=== PATIENT | female | born 1955 | race Caucasian/White ===

== ENCOUNTER → 2016-11-10 | Outpatient (CLI) | payer OTHER ==
[2016-11-10 15:42] VITALS: BP 186/101; PULSE 71; TEMP 97; BMI 47.2
--- NOTE | 2016-11-10 16:57 | P.HPBAR ---
Bariatric H&P - History & Physicial H&P Date: 11/10/16 History & Physicial: Visit/CC: FOLLOW UP VISIT Patient initial contact: Initial weight: Initial weight in pounds: Height: 5 ft 3 in Initial BMI: Last weight: Current weight: 120.882 kg Current weight in pounds: 266.50 Current BMI: 47.2 [place] body weight (based on NIH guidelines): 52.163 kg Excess body weight loss: The patient is a 61 year-old F who presents for Bariatric Assessment. Patient presents for lab band follow. She's not been seen for approximately 8 years. She states she has pain at her port site. She's had some minimal GERD symptoms. Past Medical History History of Any Multi-Drug Resistant Organisms: None Reported Smoking Status: Never smoker Surgical - Exam Vital Signs Temp Pulse BP 97.0 F L 71 186/101 11/10/16 15:35 11/10/16 15:35 11/10/16 15:35 - General well developed, no distress - Eyes PERRL - ENT normal pinna - Neck no masses - Respiratory normal expansion - Cardiovascular Rhythm: regular - Abdomen Patient's abdomen is soft. She has exquisite tenderness throughout her epigastric area. There is also tenderness along the left side her abdomen and in the right left lower quadrant. Bariatric Assessment & Plan Plan: The patient LAP-BAND was accessed. The port is not rotated. Patient's complaints of severe pain throughout her abdomen. We will perform computed tomography scan of the abdomen and pelvis. Bariatric Checklist Checklist: Plan: Checklist: EGD: 1. Hiatal hernia: 2. H. Pylori: HgbA1c: Vitamin D: Smoking: Never smoker Primary care physician referral: DR HODGES Psychiatry clearance: Cardiology clearance: Sleep study: Diet journal: VTE risk score: VTE risk level: Rehab needs at discharge:
== END | disposition home or self-care (01) ==
LOC: BARWHC3 12:59
PROVIDERS: ATTEND Surgery
DX: Z48.815 Encounter for surgical aftercare following surgery on the digestive system (principal); Z98.84 Bariatric surgery status; K21.9 Gastro-esophageal reflux disease without esophagitis; R10.84 Generalized abdominal pain
CPT/HCPCS: 99211

== ENCOUNTER → 2016-11-19 | Outpatient (CLI) | payer OTHER ==
[2016-11-19 15:20] LABS: Blood Urea Nitrogen 16 mg/dL (7-17); Non-African American GFR(MDRD) >60 (>60 ml/min/1.73 sqM)
--- NOTE | 2016-11-19 17:12 | CT ---
EXAMINATION TYPE: CT abdomen pelvis w con DATE OF EXAM: 11/19/2016 4:50 PM COMPARISON: Prior exam 02 September 2008 HISTORY: Generalized abdominal pain. CT DLP: 1860.00 mGycm Automated exposure control for dose reduction was used. TECHNIQUE: Helical acquisition of images from the lung bases through the pelvis have been completed. CONTRAST: Performed with Oral Contrast and with IV Contrast, patient injected with 100 mL of Omnipaque 300. FINDINGS: LUNG BASES: Minimal dependent atelectatic changes, there is no pleural or pericardial effusion Patient is status post lap band. AORTA: No significant abnormality is appreciated. LIVER/GB: The liver shows low attenuation likely due to fatty infiltration. Patient is post cholecyst ectomy and the liver is enlarged. PANCREAS: No significant abnormality is seen. SPLEEN: No significant abnormality is seen. ADRENALS: No significant abnormality is seen. KIDNEYS: No significant abnormality is seen. REPRODUCTIVE ORGANS: Uterus and right adnexal structures are not seen, left ovary shows an associated cystic focus measuring 13 mm BOWEL: Diverticular changes associated with the sigmoid colon, there is no bowel obstruction evident , appendix is not seen FREE AIR: No Free Air visible ASCITES: None visible. PELVIC ADENOPATHY: None visualized. RETROPERITONEAL ADENOPATHY: No Retroperitoneal Adenopathy visible. URINARY BLADDER: No significant abnormality is seen. OSSEOUS STRUCTURES: Degenerative disc changes are present, postop change noted to the left hip. IMPRESSION: POSTOP CHANGES. DIVERTICULOSIS. FATTY INFILTRATION OF THE LIVER, HEPATOMEGALY. ADDITIONAL FINDINGS AB OVE.
== END | disposition home or self-care (01) ==
LOC: RADCTMAIN 14:38
PROVIDERS: ATTEND Surgery
DX: K57.90 Diverticulosis of intestine, part unspecified, without perforation or abscess without bleeding (principal); K76.0 Fatty (change of) liver, not elsewhere classified; R16.0 Hepatomegaly, not elsewhere classified; R10.84 Generalized abdominal pain; Z98.890 Other specified postprocedural states
CPT/HCPCS: 82565; 84520; 74177; 36415; Q9967

== ENCOUNTER → 2016-12-15 | Outpatient (CLI) | payer OTHER | END | disposition home or self-care (01) | LOC: LABPAT 09:29 | PROVIDERS: ATTEND Orthopaedic Surgery | DX: Z01.812 Encounter for preprocedural laboratory examination (principal); M16.11 Unilateral primary osteoarthritis, right hip | CPT/HCPCS: 86850; 86870; 86880; 86900; 86901; 86902; 87070 ==

== ENCOUNTER 2016-12-22 05:54 | Inpatient (IN) | payer OTHER ==
[2016-12-18 15:21] VITALS: BMI 44.7
--- NOTE | 2016-12-21 11:55 | HP ---
DATE OF ADMISSION: Mariama Hough is a 61-year-old patient seen with symptomatic right hip osteoarthritis. After having treatment options discussed, she elected to proceed with right total hip arthroplasty. Consent was obtained. Medical clearance was provided by Rao Barrett. Preoperative cardiac clearance was provided by Dr. Machuca. Past medical history is hypertension, cardiovascular disease, asthma, [id number] diabetes. PAST SURGICAL HISTORY: Left total hip arthroplasty. Daily medications: 1. Clonidine. 2. Seroquel. 3. Carbamazepine. ALLERGIES: VICODIN AND LORABID, SEPTRA, IODINE, ZETIA AND TRAMADOL. SOCIAL HISTORY: Patient denies tobacco use. Physical evaluation of the right hip range of motion is limited with severe pain. There is diffuse tenderness about the hip girdle, positive hip impingement sign, straight-leg raise negative. The right lower extremity is approximately half inch shorter than the left. Distal neurovascular exam is intact. Radiographs of the right hip reveal severe osteoarthritic changes. IMPRESSION: Right hip osteoarthritis. PLAN: Direct anterior right total hip arthroplasty.
[~2016-12-22 05:54] MED LIST: ACETAMINOPHEN TAB 500 MG TAB PO ONE; CLINDAMYCIN 900 MG in DEXTROSE 5% IN WATER 50 ML IVPB ONE; MELOXICAM 7.5 MG TAB PO ONE; TRANEXAMIC ACID 1,000 MG in SODIUM CHLORIDE 0.9% 100 ML IVPB ONE
[2016-12-22] MEDS ORDERED: ONDANSETRON 4 MG/2 ML VIAL IVP ONE (06:12)
[2016-12-22] MEDS ORDERED: DEXAMETHASONE SOD PHOSPHATE 10 MG/ML 1 ML VIAL IV ONE (06:12)
[2016-12-22] MEDS ORDERED: MIDAZOLAM 2 MG/2 ML VIAL IV PRN (06:12)
[2016-12-22] MEDS ORDERED: HYDROmorphone 1 MG/ML 1 ML SYRINGE IVP PRN ×2 (06:12→09:53)
[2016-12-22 06:58] LABS: Glucose,Whole Blood 96 mg/dL (75-99)
[2016-12-22] MEDS ORDERED: LIDOCAINE 1% 20 ML VIAL (10MG/ML) FOR IV START INTRADERMA ONE (07:27)
[2016-12-22] MEDS: LACTATED RINGERS 1,000 ML IV SCH ×2 (07:28→10:53)
[2016-12-22] MEDS ORDERED: fentaNYL (PF) 50 MCG/ML 2 ML AMP ONE (07:29)
[2016-12-22] MEDS ORDERED: ePHEDrine 50 MG/ML 1 ML AMP ONE (07:29)
[2016-12-22] MEDS ORDERED: TRANEXAMIC ACID 1,000 MG/10 ML VIAL ONE (07:29)
[2016-12-22] MEDS ORDERED: PROPOFOL 10 MG/ML 20 ML VIAL IV ONE (07:29)
[2016-12-22] MEDS ORDERED: MIDAZOLAM 2 MG/2 ML VIAL ONE (07:29)
[2016-12-22] MEDS ORDERED: SODIUM CHLORIDE 0.9% 100 ML BAG ONE (07:29)
[2016-12-22] MEDS ORDERED: CLINDAMYCIN 1,800 MG in SODIUM CHLORIDE 0.9% IRRIGATIO 3,000 ML IRRIGATION ONE (08:13)
[2016-12-22] MEDS ORDERED: ROPIVACAINE 246.25 MG, EPINEPHrine 0.5 MG, KETOROLAC 30 MG, cloNIDine HCL/PF 80 MCG, WA... MISCELLANE ONE ×5 (08:47)
[2016-12-22] MEDS ORDERED: LACTATED RINGERS 1,000 ML IV ONE ×2 (08:50→10:33)
[2016-12-22] MEDS ORDERED: NALOXONE 0.4 MG/ML 1 ML VIAL IV PRN (09:53)
[2016-12-22] MEDS ORDERED: ONDANSETRON 4 MG/2 ML VIAL IVP PRN (09:53)
--- NOTE | 2016-12-22 09:53 | P.OP ---
Date of Procedure: 12/22/16 Preoperative Diagnosis: Right hip osteoarthritis Postoperative Diagnosis: Right hip osteoarthritis Procedure(s) Performed: Direct anterior right total hip arthroplasty Implants: 1. Depuy Corail cementless femoral stem K a size 11 standard collar 2. Depuy pinnacle acetabular shell 52 mm 3. Depuy pinnacle polyethylene acetabular liner neutral 36 mm ID52 mm OD 4. Depuy metal femoral head 36 mm -2 Anesthesia: local, spinal Surgeon: Carson Martinez Manager Heavy Duty #1: Floyd Hess Estimated Blood Loss (ml): 250 Pathology: other (Femoral head) Condition: stable Disposition: PACU Indications for Procedure: 61-year-old patient seen with symptomatic right hip osteoarthritis. After having treatment options discussed, she elected to proceed with right total hip arthroplasty. Operative Findings: See description of procedure Description of Procedure: The patient was taken to the operative suite. Patient underwent a spinal anesthetic by the department of anesthesia. Patient was then transferred to the Roy table. Patient was given preoperative IV antibiotics and TXA. Both lower extremities were placed in standard leg spars. The hip was then prepped and draped in the normal sterile orthopedic fashion. A standard anterior incision was made beginning 3 cm lateral and 1 cm distal to the ASIS extending 10 cm. Dissection was then carried down through the subcutaneous soft tissues down to the fascia overlying the tensor fascia svetlana. An incision was now made through the fascia. Careful dissection was taken down exposing the tensor fascia svetlana muscle. A Cobra retractor was now placed along the medial femoral neck and a second one along the lateral femoral neck. The venous circumflex vessels were now identified, cauterized and clipped. We identified the anterior hip capsule. An incision was made through the hip capsule along the lateral border. Tag sutures were then placed along the anterior capsule and lateral capsule. We then performed a capsulotomy. Retractors were now placed around the femoral neck itself. A Cobra retractor was now placed along the anterior acetabulum. Good exposure was now noted of the femoral head/neck complex. Residual labrum was debrided out. We placed the extremity into 3 turns of fine traction. We were then able to introduce a skid in between the femoral head and acetabulum. A placed a awl into the femoral head. We took 2 turns of traction off the extremity. Rotation was now released. The femoral head was then dislocated without difficulty. Additional releasing was performed of the capsule. The head was then reduced. All traction was released. A femoral neck cut was now made with a sagittal saw. It was completed with an osteotome at the lateral neck area. The femoral head was now removed without difficulty. The extremity was now rotated to 60 of external rotation. It was locked in position. Residual labrum was now debrided out. Serial reaming was performed of the acetabulum. Once we reached the appropriate size and a trial was position and fit nicely. The appropriate size was now chosen opened and made available. The wound was irrigated with pulse lavage mechanical irrigation. It was introduced into the acetabulum without difficulty. The C-arm/fluoroscopy was now brought into the operative field. We made sure we had a true AP pelvic view. We now under direct C-arm/ fluoroscopy introduced into the acetabular component with appropriate version and inclination. It was well seated and stable. The C-arm was pulled back. An appropriate liner was introduced and clicked into position. It was felt to be stable. At this point retractors were removed. The extremity was now placed into 125 external rotation with no traction. The leg was now dropped to the ground and adducted. Appropriate retractors were now positioned along the proximal femur. We also placed our femoral look into position. Additional capsular releasing was performed to gain access to the proximal femur. We now used a box osteotome. A canal finder was now utilized. Serial broaching was now performed until we reached the appropriate size with good overall rotational stability. Appropriate calcar planing was performed. A trial head/ neck was placed into position. The hip was now reduced. The C-arm/fluoroscopy was brought back into the operative field. A spot film was obtained of the nonoperative hip. A spot film was obtained of the trial components. Overlays were performed, we noted good overall alignment and positioning for determining leg length. The C-arm/fluoroscopy was pulled back. Retractors were repositioned and the hip was dislocated. The leg was again taken down to the ground and adducted. Appropriate retractors were repositioned as well as the femoral hook. All trial components were removed. The wound was irrigated with pulse lavage mechanical irrigation. The femoral implant was opened along with the femoral head. Deep soft tissues were infiltrated local analgesic. The femoral implant was introduced with good purchase and fixation noted. The femoral head was introduced with good positioning and fixation noted. Retractors were now removed. The hip was now reduced. There appeared be good positioning of the hip. As was confirmed on C-arm fluoroscopy. A second gram of TXA was given. Bipolar cautery had been utilized intermittently through the procedure for hemostasis. The wound was irrigated copiously with pulse lavage mechanical irrigation. The fascia was repaired with Vicryl suture. The subcutaneous soft tissues were infiltrated local analgesic. The subcutaneous soft tissues were repaired in layers with Vicryl suture. The skin was approximated with pernio/Dermabond. Sterile dressings were applied. Patient was then awakened, transferred to a bed and taken to recovery in stable condition. Phan GREENBERG assisted with the procedure.
[2016-12-22] MEDS ORDERED: ACET/COD 240MG/24MG LIQ 10 ML SYRG PO PRN (10:15)
[2016-12-22 10:29] LABS: Glucose,Whole Blood 129 mg/dL (75-99)
[2016-12-22] MEDS ORDERED: HYDROmorphone 1 MG/ML 1 ML SYRINGE IVP ONE (10:50)
--- NOTE | 2016-12-22 11:57 | FL ---
Fluoroscopy HISTORY: Pain 19 seconds fluoroscopy time supplied to the referring clinician. 1 intraoperative C-arm images docum ent the procedure. See dictated report from orthopedic surgery.
--- NOTE | 2016-12-22 11:59 | XR ---
Limited right hip HISTORY: Post hip arthroplasty Limited right hip, single view from intraoperative exam submitted to document procedure
[2016-12-22] MEDS ORDERED: ACETAMINOPHEN ORAL SUSP 160 MG/5 ML CUP PO PRN (12:19)
[2016-12-22] MEDS: HYDROmorphone 1 MG/ML 1 ML SYRINGE IVP PRN ×3 (12:24→19:55)
[2016-12-22] MEDS: SODIUM CHLORIDE 0.9% 1,000 ML IV SCH ×2 (12:25→23:25)
--- NOTE | 2016-12-22 14:34 | P.CONS ---
History of Present Illness - Reason for Consult Consult date: 12/22/16 Medical management Requesting physician: Carson Martinez - Chief Complaint Status post right total hip arthroplasty - History of Present Illness This is a 61-year-old female who is been suffering with arthritis and pain in the right hip. She underwent a right total hip arthroplasty today with Dr. Martinez. She tolerated surgery well. Estimated blood loss 250 mL. She also has a known history of hypertension, asthma, subdural hematomas requiring surgical drainage in April 2016. Also history of CVA, diabetes, peripheral vascular disease and rheumatic fever. Patient currently not on any diabetic medications after she has had some weight loss. Blood sugars have improved. She was seen by her edge brusher, PCP and vascular surgeon before proceeding with today's procedure. Last seizure episode was in April 2016 after the subdural hematoma. Patient is lying in bed. She is complaining of several left hip pain. Patient's blood pressures have been elevated likely related to her pain. Pain medication has been addressed. Patient does not do well with taking pills. Her medications are liquid form. Liquid Tylenol has also been ordered. Blood pressure has shown improvement at 159/76. Continue to monitor blood pressures. She denies any chest pain, shortness of breath, nausea or vomiting. Was having regular bowel movements and no difficulty urinating at home prior to surgery. Review of Systems Please refer to HPI otherwise unremarkable Past Medical History Past Medical History: Asthma, Coronary Artery Disease (CAD), CVA/TIA, Diabetes Mellitus, Deep Vein Thrombosis (DVT), GERD/Reflux, Hyperlipidemia, Hypertension , Memory Impairment, Osteoarthritis (OA), Seizure Disorder Additional Past Medical History / Comment(s): fell & hit her head 05/10 resulting in hematoma & subsequent stroke x2 with seizure, was hospitalized at [facility] & in rehab after at [facility] after, using cane currently & also still has trouble w/pills & food getting stuck @times, takes no meds for diabetes, rheumatic fever, heart murmur, deaf r ear, pvd, corotid stenosis, dvt r leg, fibro, egd, colonoscopy, r leg angioplasty balloon, r carotid endart, short term memory impairment History of Any Multi-Drug Resistant Organisms: None Reported Past Surgical History: Appendectomy, Bariatric Surgery, Cholecystectomy, Heart Catheterization, Hysterectomy, Orthopedic Surgery, Tonsillectomy, Tubal Ligation Additional Past Surgical History / Comment(s): left hip replacement, cervical fusion, lap band surgery, bilateral capal tunnel, panniculectomy, r iliac stent , tubes in brain after fall and hematoma 05/10 Past Anesthesia/Blood Transfusion Reactions: No Reported Reaction Past Psychological History: Anxiety, Depression Smoking Status: Never smoker Past Alcohol Use History: None Reported Past Drug Use History: None Reported - Past Family History Sister(s) Family Medical History: Cancer, Coronary Artery Disease (CAD), Hyperlipidemia, Hypertension Additional Family Medical History / Comment(s): aneurysm, heart stents; 4 living sisters Brother(s) Family Medical History: Hypertension, Myocardial Infarction (PR) Additional Family Medical History / Comment(s): stents in legs, heart disease, carotid disease, triple bypass; 2 brother : heart disease; 1 brother living Mother Family Medical History: Coronary Artery Disease (CAD), Diabetes Mellitus Additional Family Medical History / Comment(s): Father Family Medical History: Coronary Artery Disease (CAD) Additional Family Medical History / Comment(s): Medications and Allergies Home Medications Medication Instructions Recorded Confirmed Type QUEtiapine [SEROquel] 25 mg PO HS 11/11/16 12/22/16 History carBAMazepine [carBAMazepine Susp] 100 mg PO BID 12/18/16 12/22/16 History cloNIDine 0.2 MG/24HR PATCH 1 patch TOPICAL DAILY 12/22/16 12/22/16 History [Catapres-TTS] levETIRAcetam 750 mg PO BID 12/22/16 12/22/16 History Allergies Allergy/AdvReac Type Severity Reaction Status Date / Time cefdinir [From Omnicef] Allergy Rash/Hives Verified 12/18/16 15:05 ezetimibe [From Zetia] Allergy Rash/Hives Verified 12/18/16 15:05 hydrocodone Allergy Rash/Hives Verified 12/18/16 15:05 Iodinated Contrast Media - Allergy Rash/Hives, Verified 12/18/16 15:05 Oral and itching,swe lling loracarbef [From Lorabid] Allergy Rash/Hives Verified 12/18/16 15:05 morphine Allergy Rash/Hives Verified 12/18/16 15:05 Penicillins Allergy Rash/Hives Verified 12/18/16 15:05 sulfamethoxazole Allergy Rash/Hives Verified 12/18/16 15:05 [From Septra] topiramate Allergy Unknown Verified 12/18/16 15:05 tramadol Allergy Unknown Verified 12/18/16 15:05 trimethoprim [From Septra] Allergy Rash/Hives Verified 12/18/16 15:05 atorvastatin [From Lipitor] AdvReac joint pain Verified 12/18/16 15:05 ibuprofen AdvReac Itching Verified 12/18/16 15:05 ipratropium AdvReac dry throat Verified 12/18/16 15:06 lovastatin AdvReac joint pain Verified 12/18/16 15:05 tiotropium AdvReac dry throat Verified 12/18/16 15:05 [From Spiriva with HandiHaler] Physical Exam Vitals: Vital Signs Temp Pulse Pulse Pulse Resp BP BP 12/22/16 13:15 75 161/79 12/22/16 13:00 76 159/76 12/22/16 12:45 77 172/84 12/22/16 12:30 73 168/75 12/22/16 12:15 76 180/87 12/22/16 12:00 74 184/101 12/22/16 11:45 75 178/86 12/22/16 11:30 74 194/94 12/22/16 11:15 96.9 F L 74 16 191/81 12/22/16 11:05 73 16 147/66 12/22/16 11:00 66 18 158/67 12/22/16 10:44 76 18 182/74 12/22/16 10:29 70 18 173/74 12/22/16 10:11 96.8 F L 69 18 187/78 12/22/16 07:11 98.1 F 71 16 141/81 Pulse Ox 12/22/16 13:15 12/22/16 13:00 12/22/16 12:45 12/22/16 12:30 12/22/16 12:15 12/22/16 12:00 12/22/16 11:45 12/22/16 11:30 12/22/16 11:15 97 12/22/16 11:05 99 12/22/16 11:00 98 12/22/16 10:44 99 12/22/16 10:29 95 02/27/17 10:11 96 12/22/16 07:11 98 Intake and Output 12/21/16 12/22/16 12/22/16 22:59 06:59 14:59 Intake Total 5568 Output Total 650 Balance 4918 Intake: IV 4968 Oral 600 Output: Urine 400 Estimated Blood Loss 250 Other: Voiding Method Indwelling Catheter Weight 122.016 kg Patient Weight 12/23/16 06:59 Weight 122.016 kg Head normocephalic Neck supple Lungs clear to auscultation bilaterally no wheezing or crackles Heart regular rate and rhythm S1-S2, no rub or gallop Abdomen is soft nontender nondistended positive bowel sounds no hepatosplenomegaly Extremities no edema. Right leg dressing clean dry and intact Neuro alert and orientated to 3 Results Labs: Abnormal Lab Results - Last 24 Hours (Table) 12/22/16 Range/Units 10:28 POC Glucose (mg/dL) 129 H (75-99) mg/dL Assessment and Plan Plan: 1. Right hip osteoarthritis status post right total hip arthroplasty. Estimated blood loss 250 mL. Continue with the IV Dilaudid as needed. We'll add liquid Tylenol. Patient has difficulty taking pills. DVT prophylaxis with Lovenox per orthopedic protocol 2. Essential hypertension. Blood pressures elevated likely related to pain. Continue with the clonidine patch 0.2 mg daily. Patch was just increased 2 weeks ago by his PCP. Continue to monitor we'll make further adjustments as needed. Repeat blood pressure has shown some improvement. 3. History of subdural hematoma after a fall requiring surgical drainage back in April 2016. 4. History of Seizure after subdural hematoma. No further seizure activities. Continue with her current seizure medication 5. History of peripheral vascular disease 6. History of 2 previous CVAs 7. History of diabetes mellitus not requiring medications at home. We'll monitor blood sugars while in hospital. And cover with sliding scale Check routine labs CBC and CMP Thank you for this consultation. We will continue to follow along with you. Time with Patient: Greater than 30 (Greater than 50% of the total time spent in counseling and coordination of care.I performed an examination of the patient and discussed their management with the physician [employer] Sales Agent. I have reviewed the Physician [employer] Members[employer] Sales Agent's notes and agree with the documented findings and plan of care)
[2016-12-22 16:07] LABS: Basophils % (A) 0 %; CH 30.5; CHCM 32.2; Eosinophils % (A) 0 %; HCT 36.9 % (34.0-46.0); HDW 2.36; HGB 11.8 gm/dL (11.4-16.0); Luc # (Auto) 0.05; Luc % (Auto) 1; Lymphocytes # (A) 0.7 k/uL (1.0-4.8); Lymphocytes % (A) 6 %; MCH 30.3 pg (25.0-35.0); MCHC 31.9 g/dL (31.0-37.0); MCV 95.2 fL (80.0-100.0); Mean Platelet Volume 8.2; Monocytes # (A) 0.4 k/uL (0-1.0); Monocytes % (A) 3 %; Neutrophils # (A) 10.4 k/uL (1.3-7.7); Neutrophils % (A) 90 %; RBC 3.88 m/uL (3.80-5.40); RDW 13.5 % (11.5-15.5); WBC 11.6 k/uL (3.8-10.6); WBC (Perox) 12.58
[2016-12-22] MEDS: CLINDAMYCIN 900 MG in DEXTROSE 5% IN WATER 50 ML IVPB SCH ×4 (16:22→23:24)
[2016-12-22 16:23] LABS: Glucose,Whole Blood 211 mg/dL (75-99)
[2016-12-22 16:23] LABS: ALT 24 U/L (9-52); AST 26 U/L (14-36); Alkaline Phosphatase 66 U/L (38-126); Anion Gap 11 mmol/L; Blood Urea Nitrogen 16 mg/dL (7-17); Calcium 9.1 mg/dL (8.4-10.2); Carbon Dioxide 26 mmol/L (22-30); Chloride 103 mmol/L (98-107); Glucose 212 mg/dL (74-99); Non-African American GFR(MDRD) >60 (>60 ml/min/1.73 sqM); Potassium 5.1 mmol/L (3.5-5.1); Sodium 140 mmol/L (137-145); Total Bilirubin 0.4 mg/dL (0.2-1.3)
[2016-12-22] MEDS: INSULIN LISPRO (humaLOG) 300 UNIT/3 ML VIAL SQ SCH ×2 (17:54→21:17)
[2016-12-22] MEDS: QUEtiapine 25 MG TAB PO SCH (18:38)
[2016-12-22 20:26] LABS: Hemoglobin A1C 5.7 % (4.2-6.1)
[2016-12-22 21:00] LABS: Glucose,Whole Blood 95 mg/dL (75-99)
[2016-12-22] MEDS ORDERED: CARBAMAZEPINE 100 MG/5 ML PO SCH (21:00)
[2016-12-22] MEDS: levETIRAcetam ORAL SOLN 500 MG/5 ML CUP PO SCH (21:23)
[2016-12-22] MEDS: CARBAMAZEPINE 100 MG/5 ML PO SCH (21:24)
[2016-12-23] MEDS: HYDROmorphone 1 MG/ML 1 ML SYRINGE IVP PRN ×3 (02:25→10:05)
[2016-12-23] MEDS: LACTATED RINGERS 1,000 ML IV SCH ×2 (05:39)
[2016-12-23 06:51] LABS: Basophils % (A) 0 %; CH 30.1; CHCM 31.9; Eosinophils # (A) 0.1 k/uL (0-0.7); Eosinophils % (A) 1 %; HDW 2.29; HGB 10.3 gm/dL (11.4-16.0); Luc % (Auto) 2; Lymphocytes # (A) 2.1 k/uL (1.0-4.8); Lymphocytes % (A) 32 %; MCH 30.4 pg (25.0-35.0); MCV 94.8 fL (80.0-100.0); Mean Platelet Volume 7.7; Monocytes # (A) 0.5 k/uL (0-1.0); Monocytes % (A) 7 %; Neutrophils # (A) 3.7 k/uL (1.3-7.7); Neutrophils % (A) 58 %; RBC 3.38 m/uL (3.80-5.40); RDW 13.3 % (11.5-15.5); WBC 6.4 k/uL (3.8-10.6); WBC (Perox) 6.63
[2016-12-23 07:07] LABS: ALT 21 U/L (9-52); AST 23 U/L (14-36); Alkaline Phosphatase 56 U/L (38-126); Anion Gap 8 mmol/L; Blood Urea Nitrogen 15 mg/dL (7-17); Calcium 8.6 mg/dL (8.4-10.2); Carbon Dioxide 27 mmol/L (22-30); Chloride 103 mmol/L (98-107); Glucose 91 mg/dL (74-99); Non-African American GFR(MDRD) >60 (>60 ml/min/1.73 sqM); Potassium 4.5 mmol/L (3.5-5.1); Sodium 138 mmol/L (137-145); Total Bilirubin 0.4 mg/dL (0.2-1.3); Total Protein 5.2 g/dL (6.3-8.2)
[2016-12-23 07:12] LABS: Glucose,Whole Blood 96 mg/dL (75-99)
[2016-12-23] MEDS: INSULIN LISPRO (humaLOG) 300 UNIT/3 ML VIAL SQ SCH ×4 (07:21→20:43)
[2016-12-23] MEDS: CARBAMAZEPINE 100 MG/5 ML PO SCH ×2 (08:14→20:49)
[2016-12-23] MEDS: levETIRAcetam ORAL SOLN 500 MG/5 ML CUP PO SCH ×2 (08:14→20:48)
[2016-12-23] MEDS: ENOXAPARIN 40 MG/0.4 ML SYRINGE SQ SCH (08:16)
[2016-12-23] MEDS ORDERED: cloNIDine 0.2 MG/24HR PATCH 1 PATCH PATCH TRANSDERM SCH (09:00)
[2016-12-23 11:04] LABS: Glucose,Whole Blood 97 mg/dL (75-99)
[2016-12-23] MEDS: ACETAMINOPHEN ORAL SUSP (PEDS) 3,840 MG/120 ML BOTTLE PO PRN ×2 (13:50→18:21)
--- NOTE | 2016-12-23 16:20 | P.PN ---
Subjective Principal diagnosis: Status post right total hip arthroplasty Patient seen today resting in hospital bed, she has slight increased pain in right hip. She has ambulated well, urinary catheter has been removed. She denies chest pain, shortness of breath, fever or chills. Objective - Vital Signs Vital signs: Vital Signs Temp 98.7 F 12/23/16 14:10 Pulse 69 12/23/16 14:10 Resp 17 12/23/16 14:10 BP 166/83 12/23/16 14:10 Pulse Ox 100 12/23/16 14:10 Intake & Output 12/22/16 12/23/16 12/23/16 18:59 06:59 18:59 Intake Total 6128 780 Output Total 650 300 Balance 5478 480 Weight 122.016 kg 122.016 kg Intake: IV 5168 160 Sodium Chloride 0.9% 1, 200 160 000 ml @ 80 mls/hr IV . [id number] ALCIDES Rx#:[id number] Oral 960 620 Output: Urine 400 300 Uretheral ([place]) 300 Estimated Blood Loss 250 Other: Voiding Method Indwelling Catheter Indwelling Catheter - Exam Right lower extremity: Incision is clean, dry and intact. There is minimal ecchymosis on the medial and lateral aspects of the incision. Calf soft, no tenderness with palpation. Plantar flexion, dorsiflexion, EHL, FHL are intact. Sensory exam to light touch throughout lower extremitie intact. Cap refills less than 3 seconds. - Labs CBC & Chem 7: 12/23/16 06:14 12/23/16 06:14 Labs: Abnormal Lab Results - Last 24 Hours (Table) 12/22/16 12/22/16 12/23/16 Range/Units 15:50 16:22 06:14 RBC 3.38 L (3.80-5.40) m/uL Hgb 10.3 L (11.4-16.0) gm/dL Hct 32.0 L (34.0-46.0) % Glucose 212 H (74-99) mg/dL POC Glucose (mg/dL) 211 H (75-99) mg/dL Total Protein 6.0 L (6.3-8.2) g/dL Albumin (3.5-5.0) g/dL 12/23/16 Range/Units 06:14 RBC (3.80-5.40) m/uL Hgb (11.4-16.0) gm/dL Hct (34.0-46.0) % Glucose (74-99) mg/dL POC Glucose (mg/dL) (75-99) mg/dL Total Protein 5.2 L (6.3-8.2) g/dL Albumin 2.8 L (3.5-5.0) g/dL Assessment and Plan Plan: Assessment: 1. Postop day #1 status post right total hip arthroplasty Plan: 1. Pain control continue with liquid formula 2. Dressing changes daily/ice the right hip region 3. Encourage incentive spirometer 4. Continue therapy 5. GI and DVT prophylaxis, continue Lovenox 6. Medical recommendations 7. Discharge planning: Patient will likely be discharged home tomorrow Time with Patient: Less than 30
--- NOTE | 2016-12-23 16:21 | P.DS ---
Providers Date of admission: 12/22/16 05:54 Expected date of discharge: 12/24/16 Attending physician: Carson Martinez Consults: 12/22/16 09:53 Consult Physician Routine Consulting Provider: Maxine Sanchez Consult Reason/Comments: Medical management Do you want consulting provider notified?: Yes Primary care physician: Rao Blanton Hospital Course: Date of admission: 12/22/2016 Date of discharge: 12/24/2016 Admission diagnosis: Status post right total hip arthroplasty Discharge diagnosis: Same Attending physician: Dr. Martinez Surgical procedures: Right total hip arthroplasty Brief history: Patient is a 61-year-old female with a history of progressive primary right hip osteoarthritis. At this point patient has failed conservative treatment measures and has opted to proceed with a elective right total hip arthroplasty. Hospital course: Details of patient's surgery can be found in operative report. Patient tolerated the procedure well and was subsequently transported to orthopedic floor. Patient's orthopeidc and medical care was provided daily. Patient had daily laboratory tests performed for evaluation of overall blood counts. Patient had daily physical therapy to include strengthening range of motion as well as education with walker ambulation. Patient was treated with Lovenox for their postoperative DVT prophylaxis during their inpatient stay. Patient was noted to have a relatively uneventful postoperative course. Patient reported satisfactory pain control with oral pain medications by postoperative day 0. Patient showed satisfactory progress with physical therapy. Patient moved steadily through the program and had no difficulty meeting the goals by postoperative day 2. Given patient's otherwise satisfactory course and having met physical therapy goals, plan is to discharge patient home on postoperative day 2. Discharge condition/disposition: Patient will be discharged home in stable condition. Discharge medications: Instructions are given on resumption of patient's normal daily medications per primary care recommendation, in addition patient will be prescribed Lovenox 40 mg, Tylenol liquid 650mg. Discharge instructions: 1. Wound care and infection precautions, keep incision dry and covered while showering, no lotions, creams, moisturizers. No soaking, tubs, pools, hottubs. Do not scrub over the incision. 2. Weight-bear as tolerated with walker / cane until follow-up. 3. Ice and elevate when necessary. Do not exceed 20 minutes per hour with ice pack. 4. Utilize compression sleeve until seen at first follow up appointment. 5. Visiting nursing care. 6. Home physical therapy. 7. Pain meds and anticoagulants per prescription. 8. Pain medication has potential to cause constipation. Increase oral fluid and fiber intake. Contact primary care provider if you have not had a bowel movement within 48 hours after discharge 9. No anti-inflammatory medication until discussed at first post operative visit, this including Motrin, Aleve, Mobic, Diclofenac. 10. Follow up in office at 2 weeks postop with Phan Hess PA-C 11. Follow up with your primary care doctor 7-10 days after discharge. 12. Contact [facility] with any questions, . Procedures: Right total hip arthroplasty Patient Condition at Discharge: Good Plan - Discharge Summary New Discharge Prescriptions: Acetaminophen Oral Susp (Peds) [Tylenol Oral Susp For Peds (Grape)] 650 mg PO Q6H #1 bottle Enoxaparin [Lovenox] 40 mg SQ DAILY #30 syringe Discharge Medication List QUEtiapine [SEROquel] 25 mg PO HS 11/11/16 [History] carBAMazepine [carBAMazepine Susp] 100 mg PO BID 12/18/16 [History] cloNIDine 0.2 MG/24HR PATCH [Catapres-TTS] 1 patch TOPICAL DAILY 12/22/16 [ History] levETIRAcetam 750 mg PO BID 12/22/16 [History] Acetaminophen Oral Susp (Peds) [Tylenol Oral Susp For Peds (Grape)] 650 mg PO Q6H #1 bottle 12/24/16 [Rx] Enoxaparin [Lovenox] 40 mg SQ DAILY #30 syringe 12/24/16 [Rx] Follow up Appointment(s)/Referral(s): [facility], [NON-STAFF] - 1 Week Floyd Hess PAC [PHYSICIAN TRANSIT MANAGER] - 01/09/17 2:00 pm Patient Instructions/Handouts: Total Hip Replacement (DC) Activity/Diet/Wound Care/Special Instructions: Orthopedic Discharge Instructions: 1. Wound care and infection precautions, keep incision dry and covered while showering, no lotions, creams, moisturizers. No soaking, pools, hot tubs. Do not scrub over incision. 2. Weight-bear as tolerated with walker / cane until follow-up. 3. Ice and elevate when necessary. Do not exceed 20 minutes per hour with ice pack. 4. Utilize compression sleeve until seen at first follow up appointment. 5. Visiting nursing care. 6. Home physical therapy. 7. Pain meds and anticoagulants per prescription. 8. Pain medication has potential to cause constipation. Increase oral fluid and fiber intake. Contact primary care provider if you have not had a bowel movement within 48 hours after discharge. 9. No anti-inflammatory medication until discussed at first post operative visit, this including Motrin, Aleve, Mobic, Diclofenac, Aspirin. 10. Follow up in office at 2 weeks postop with Phan Hess PA-C 11. Follow up with your primary care doctor 7-10 days after discharge. 12. Contact [facility] with any questions, . Discharge Disposition: HOME WITH HOME HEALTH SERVICES
--- NOTE | 2016-12-23 16:29 | P.PN ---
Subjective Principal diagnosis: Right hip osteoarthritis This is a 61-year-old female who is been suffering with arthritis and pain in the right hip. She also has a known history of hypertension, asthma, subdural hematomas requiring surgical drainage in April 2016. Also history of CVA, diabetes, peripheral vascular disease and rheumatic fever. Patient currently not on any diabetic medications after she has had some weight loss. Blood sugars have improved. She was seen by her lab pack chemist, PCP and vascular surgeon before proceeding with today's procedure. Last seizure episode was in April 2016 after the subdural hematoma. Objective - Vital Signs Vital signs: Vital Signs Temp 98.7 F 12/23/16 14:10 Pulse 69 12/23/16 14:10 Resp 17 12/23/16 14:10 BP 166/83 12/23/16 14:10 Pulse Ox 100 12/23/16 14:10 Intake & Output 12/22/16 12/23/16 12/23/16 18:59 06:59 18:59 Intake Total 6128 780 Output Total 650 300 Balance 5478 480 Weight 122.016 kg 122.016 kg Intake: IV 5168 160 Sodium Chloride 0.9% 1, 200 160 000 ml @ 80 mls/hr IV . [id number] ALCIDES Rx#:[id number] Oral 960 620 Output: Urine 400 300 Uretheral ([place]) 300 Estimated Blood Loss 250 Other: Voiding Method Indwelling Catheter Indwelling Catheter - Exam Patient is alert and oriented 3 she is complaining of right hip pain she is complaining of feeling cold otherwise no complaints HEENT head normocephalic and atraumatic Neck is supple no JVD no goiter no lymphadenopathy Chest exam reveals a few scattered rhonchi no wheezing Cardiac exam reveals regular heart sounds no murmurs Abdomen is soft nontender no organomegaly Extremity exam reveals no edema - Labs CBC & Chem 7: 12/23/16 06:14 12/23/16 06:14 Labs: Abnormal Lab Results - Last 24 Hours (Table) 12/22/16 12/22/16 12/23/16 Range/Units 15:50 16:22 06:14 RBC 3.38 L (3.80-5.40) m/uL Hgb 10.3 L (11.4-16.0) gm/dL Hct 32.0 L (34.0-46.0) % Glucose 212 H (74-99) mg/dL POC Glucose (mg/dL) 211 H (75-99) mg/dL Total Protein 6.0 L (6.3-8.2) g/dL Albumin (3.5-5.0) g/dL 12/23/16 Range/Units 06:14 RBC (3.80-5.40) m/uL Hgb (11.4-16.0) gm/dL Hct (34.0-46.0) % Glucose (74-99) mg/dL POC Glucose (mg/dL) (75-99) mg/dL Total Protein 5.2 L (6.3-8.2) g/dL Albumin 2.8 L (3.5-5.0) g/dL Assessment and Plan Plan: 1. Right hip osteoarthritis status post right total hip arthroplasty. Estimated blood loss 250 mL. Continue with the IV Dilaudid as needed. We'll add liquid Tylenol. Patient has difficulty taking pills. DVT prophylaxis with Lovenox per orthopedic protocol 2. Essential hypertension. Blood pressures elevated likely related to pain. Continue with the clonidine patch 0.2 mg daily. Patch was just increased 2 weeks ago by his PCP. Continue to monitor we'll make further adjustments as needed. Repeat blood pressure has shown some improvement. 3. History of subdural hematoma after a fall requiring surgical drainage back in April 2016. 4. History of Seizure after subdural hematoma. No further seizure activities. Continue with her current seizure medication 5. History of peripheral vascular disease 6. History of 2 previous CVAs 7. History of diabetes mellitus not requiring medications at home. We'll monitor blood sugars while in hospital. And cover with sliding scale
[2016-12-23 16:37] LABS: Glucose,Whole Blood 116 mg/dL (75-99)
[2016-12-23 20:26] LABS: Glucose,Whole Blood 113 mg/dL (75-99)
[2016-12-23] MEDS: QUEtiapine 25 MG TAB PO SCH (20:49)
[2016-12-24] MEDS: LACTATED RINGERS 1,000 ML IV SCH (05:42)
[2016-12-24 07:21] LABS: Glucose,Whole Blood 122 mg/dL (75-99)
[2016-12-24] MEDS: ACETAMINOPHEN ORAL SUSP (PEDS) 3,840 MG/120 ML BOTTLE PO PRN ×2 (07:36→13:54)
[2016-12-24] MEDS: CARBAMAZEPINE 100 MG/5 ML PO SCH (07:39)
[2016-12-24] MEDS: levETIRAcetam ORAL SOLN 500 MG/5 ML CUP PO SCH (07:40)
[2016-12-24 07:41] VITALS: BP 157/70; PULSE 82; RESP 16; TEMP 97.9
[2016-12-24] MEDS: ENOXAPARIN 40 MG/0.4 ML SYRINGE SQ SCH (07:42)
[2016-12-24] MEDS: INSULIN LISPRO (humaLOG) 300 UNIT/3 ML VIAL SQ SCH ×2 (08:46→13:43)
--- NOTE | 2016-12-24 11:05 | P.PN ---
Subjective Principal diagnosis: Status post right total hip arthroplasty Patient seen today resting in hospital bed. She is doing much better today. She has ambulated well. She denies chest pain, shortness of breath, fever or chills. Objective - Vital Signs Vital signs: Vital Signs Temp 97.9 F 12/24/16 07:00 Pulse 82 12/24/16 07:00 Resp 16 12/24/16 07:00 BP 157/70 12/24/16 07:00 Pulse Ox 97 12/24/16 07:00 Intake & Output 12/23/16 12/24/16 12/24/16 18:59 06:59 18:59 Intake Total 900 120 Output Total 300 Balance 600 120 Weight 122.016 kg Intake: IV 160 Sodium Chloride 0.9% 1, 160 000 ml @ 80 mls/hr IV . [id number] ALCIDES Rx#:[id number] Oral 740 120 Output: Urine 300 Uretheral ([place]) 300 Other: Voiding Method Indwelling Catheter # Voids 4 - Exam Right lower extremity: Incision is clean, dry and intact. There is minimal ecchymosis on the medial and lateral aspects of the incision. Calf soft, no tenderness with palpation. Plantar flexion, dorsiflexion, EHL, FHL are intact. Sensory exam to light touch throughout lower extremitie intact. Cap refills less than 3 seconds. - Labs CBC & Chem 7: 12/23/16 06:14 12/23/16 06:14 Labs: Abnormal Lab Results - Last 24 Hours (Table) 12/23/16 12/23/16 12/24/16 Range/Units 16:29 20:23 07:14 POC Glucose (mg/dL) 116 H 113 H 122 H (75-99) mg/dL Assessment and Plan Plan: Assessment: 1. Postop day #2 status post right total hip arthroplasty Plan: 1. Pain control continue with liquid formula 2. Dressing changes daily/ice the right hip region 3. Encourage incentive spirometer 4. Continue therapy 5. GI and DVT prophylaxis, continue Lovenox 6. Medical recommendations 7. Discharge planning: Patient will be discharged home today Time with Patient: Less than 30
[2016-12-24 12:13] LABS: Glucose,Whole Blood 113 mg/dL (75-99)
[2017-01-04] MEDS ORDERED: cloNIDine 0.2 MG/24HR PATCH 1 PATCH PATCH TRANSDERM SCH (09:00)
== END 2016-12-24 14:47 | disposition home health service (06) | DRG 470 ==
LOC: 2ORMAIN 05:54 → 3SUR 10:05
PROVIDERS: ADMIT Orthopaedic Surgery; ATTEND Orthopaedic Surgery
PROC: 0SR902A Replacement of Right Hip Joint with Metal on Polyethylene Synthetic Substitute, Uncemented, Open Approach (ICD-10-PCS; principal; 2016-12-22 07:30)
DX: M16.11 Unilateral primary osteoarthritis, right hip (principal); E11.51 Type 2 diabetes mellitus with diabetic peripheral angiopathy without gangrene; I10 Essential (primary) hypertension; J45.909 Unspecified asthma, uncomplicated; G40.909 Epilepsy, unspecified, not intractable, without status epilepticus; I25.10 Atherosclerotic heart disease of native coronary artery without angina pectoris; F32.9 Major depressive disorder, single episode, unspecified; K21.9 Gastro-esophageal reflux disease without esophagitis; E78.5 Hyperlipidemia, unspecified; Z90.49 Acquired absence of other specified parts of digestive tract; Z86.718 Personal history of other venous thrombosis and embolism; Z86.73 Personal history of transient ischemic attack (TIA), and cerebral infarction without residual deficits; Z96.642 Presence of left artificial hip joint; Z79.899 Other long term (current) drug therapy
CPT/HCPCS: 73501; 80053; 83036; 85025; 86850; 86870; 86880; 86900; 86901; 86902; 87070; 88300

== ENCOUNTER 2017-02-10 10:48 | Emergency (ER) | payer OTHER ==
[2017-02-10 10:57] VITALS: BP 220/89; PULSE 65; RESP 18; TEMP 98.5
[2017-02-10] MEDS ORDERED: LABETALOL 5 MG/ML VIAL MDV IVP STA (11:05)
--- NOTE | 2017-02-10 11:53 | ED ---
General Adult HPI - General Chief complaint: Recheck/Abnormal Lab/Rx Stated complaint: high blood pressure Time Seen by Provider: 02/10/17 11:04 Source: patient, RN notes reviewed, old records reviewed Mode of arrival: ambulatory Limitations: no limitations - History of Present Illness Initial comments: This is a 60-year-old female here for evaluation of elevated blood pressure headache. Patient coming in for continued complaints of the same. Upon arrival to emergency room patient states she does not want reevaluated on this will be discharged home, patient is refuting refusing any further evaluation Severity scale (1-10): 0 - Related Data Home Medications Medication Instructions Recorded Confirmed QUEtiapine [SEROquel] 25 mg PO HS 11/11/16 02/10/17 carBAMazepine [carBAMazepine Susp] 100 mg PO BID 12/18/16 02/10/17 cloNIDine 0.2 MG/24HR PATCH 1 patch TOPICAL DAILY 12/22/16 02/10/17 [Catapres-TTS] Acetaminophen Oral Susp (Peds) 650 mg PO Q6H PRN 02/10/17 02/10/17 [Tylenol Oral Susp For Peds (Grape)] levETIRAcetam [Levetiracetam] 750 mg PO BID 02/10/17 02/10/17 Allergies Allergy/AdvReac Type Severity Reaction Status Date / Time cefdinir [From Omnicef] Allergy Rash/Hives Verified 02/10/17 08:37 ezetimibe [From Zetia] Allergy Rash/Hives Verified 02/10/17 08:37 hydrocodone Allergy Rash/Hives Verified 02/10/17 08:37 Iodinated Contrast Media - Allergy Rash/Hives, Verified 02/10/17 08:37 Oral and itching,swe lling loracarbef [From Lorabid] Allergy Rash/Hives Verified 02/10/17 08:37 morphine Allergy Rash/Hives Verified 02/10/17 08:37 Penicillins Allergy Rash/Hives Verified 02/10/17 08:37 sulfamethoxazole Allergy Rash/Hives Verified 02/10/17 08:37 [From Septra] topiramate Allergy Unknown Verified 02/10/17 08:37 tramadol Allergy Unknown Verified 02/10/17 08:37 trimethoprim [From Septra] Allergy Rash/Hives Verified 02/10/17 08:37 atorvastatin [From Lipitor] AdvReac joint pain Verified 02/10/17 08:37 ibuprofen AdvReac Itching Verified 02/10/17 08:37 ipratropium AdvReac dry throat Verified 02/10/17 08:37 lovastatin AdvReac joint pain Verified 02/10/17 08:37 tiotropium AdvReac dry throat Verified 02/10/17 08:37 [From Spiriva with HandiHaler] Review of Systems ROS Statement: Those systems with pertinent positive or pertinent negative responses have been documented in the HPI. ROS Other: All systems not noted in ROS Statement are negative. Past Medical History Past Medical History: Asthma, Coronary Artery Disease (CAD), COPD, CVA/TIA, Diabetes Mellitus, Deep Vein Thrombosis (DVT), GERD/Reflux, Hyperlipidemia, Hypertension, Memory Impairment, Osteoarthritis (OA), Seizure Disorder Additional Past Medical History / Comment(s): fell & hit her head 05/10 resulting in hematoma & subsequent stroke x2 with seizure, was hospitalized at [facility] & in rehab after at [facility] after, using cane currently & also still has trouble w/pills & food getting stuck @times, takes no meds for diabetes, rheumatic fever, heart murmur, deaf r ear, pvd, corotid stenosis, dvt r leg, fibromyalgia, egd, colonoscopy, r leg angioplasty balloon, r carotid endart, short term memory impairment History of Any Multi-Drug Resistant Organisms: None Reported Past Surgical History: Appendectomy, Bariatric Surgery, Cholecystectomy, Heart Catheterization, Hysterectomy, Orthopedic Surgery, Tonsillectomy, Tubal Ligation Additional Past Surgical History / Comment(s): left hip replacement, cervical fusion, lap band surgery, bilateral capal tunnel, panniculectomy, r iliac stent , tubes in brain after fall and hematoma 05/10 Past Anesthesia/Blood Transfusion Reactions: No Reported Reaction Past Psychological History: Anxiety, Depression Smoking Status: Former smoker Past Alcohol Use History: None Reported Past Drug Use History: None Reported - Past Family History Sister(s) Family Medical History: Cancer, Coronary Artery Disease (CAD), Hyperlipidemia, Hypertension Additional Family Medical History / Comment(s): aneurysm, heart stents; 4 living sisters Brother(s) Family Medical History: Hypertension, Myocardial Infarction ([place]) Additional Family Medical History / Comment(s): stents in legs, heart disease, carotid disease, triple bypass; 2 brother : heart disease; 1 brother living Mother Family Medical History: Coronary Artery Disease (CAD), Diabetes Mellitus Additional Family Medical History / Comment(s): Father Family Medical History: Coronary Artery Disease (CAD) Additional Family Medical History / Comment(s): General Exam Limitations: no limitations General appearance: alert, in no apparent distress Head exam: Present: atraumatic, normocephalic, normal inspection Eye exam: Present: normal appearance, PERRL, EOMI. Absent: scleral icterus, conjunctival injection, periorbital swelling ENT exam: Present: normal exam, mucous membranes moist Neck exam: Present: normal inspection. Absent: tenderness, meningismus, lymphadenopathy Respiratory exam: Present: normal lung sounds bilaterally. Absent: respiratory distress, wheezes, rales, rhonchi, stridor Cardiovascular Exam: Present: regular rate, normal rhythm, normal heart sounds. Absent: systolic murmur, diastolic murmur, rubs, gallop, clicks GI/Abdominal exam: Present: soft, normal bowel sounds. Absent: distended, tenderness, guarding, rebound, rigid Extremities exam: Present: normal inspection, full ROM, normal capillary refill. Absent: tenderness, pedal edema, joint swelling, calf tenderness Back exam: Present: normal inspection Neurological exam: Present: alert, oriented X3, CN II-XII intact Psychiatric exam: Present: normal affect, normal mood Skin exam: Present: warm, dry, intact, normal color. Absent: rash Course Vital Signs 02/10/17 10:54 Temperature 98.5 F Pulse Rate 65 Respiratory 18 Rate Blood Pressure 220/89 O2 Sat by Pulse 98 Oximetry EKG Findings - EKG Comments: EKG Findings:: EKG shows normal sinus rhythm rate of 66, IN 132, QRS 64, QTC 419 Medical Decision Making - Medical Decision Making 62 female at ER for elevated blood pressure, patient refusing evaluation at this time, in no acute distress blood pressure at this time is unable to be measured, patient will be discharged home at her own discretion Disposition Clinical Impression: Hypertension Disposition: Left Against Medical Advice Referrals: Rao Blanton MD [Primary Care Provider] - 1-2 days
== END 2017-02-10 11:31 | disposition left against medical advice (07) ==
LOC: EC 10:48
DX: I10 Essential (primary) hypertension (principal); G40.909 Epilepsy, unspecified, not intractable, without status epilepticus; F32.9 Major depressive disorder, single episode, unspecified; F41.9 Anxiety disorder, unspecified; Z87.891 Personal history of nicotine dependence; Z79.899 Other long term (current) drug therapy; Z88.0 Allergy status to penicillin; Z88.1 Allergy status to other antibiotic agents; Z88.5 Allergy status to narcotic agent; Z88.6 Allergy status to analgesic agent; Z88.8 Allergy status to other drugs, medicaments and biological substances; Z91.041 Radiographic dye allergy status; Z95.818 Presence of other cardiac implants and grafts; Z82.49 Family history of ischemic heart disease and other diseases of the circulatory system
CPT/HCPCS: 93005; 99283

== ENCOUNTER → 2017-03-03 | Outpatient (CLI) | payer OTHER ==
--- NOTE | 2017-03-03 12:18 | US ---
LOWER EXTREMITY BILATERAL VENOUS INSUFFICIENCY DATE: 03/03/2017. TECHNIQUE: Duplex Doppler ultrasound examination of the bilateral lower extremities. FINDINGS: SIDE PERFORMED: Bilateral 1) Color flow is present and patency is documented in the following vessels. No DVT or SVT is noted . ? EIV ? Common Femoral Vein ? Deep Femoral Vein ? Femoral Vein ? Popliteal Vein ? Proximal Calf Veins ? Greater Saph Vein ? Upper Small Saph Vein 2) There is venous reflux noted at the following venous levels: None No sign of reflux seen in bilateral legs IMPRESSION: 1. No evidence for DVT within the bilateral lower extremities imaged from the groin to the upper calv es. 2. No appreciable venous reflux within the bilateral lower extremities.
--- NOTE | 2017-03-04 14:18 | P.ARTDOP ---
Arterial Doppler LOWER EXTREMITY ARTERIAL DOPPLER: DATE OF SERVICE: 03/03/2017 Reason for study: Right leg pain. Doppler waveforms: Multiphasic bilaterally throughout, slightly blunted distally on the right.. Pulse volume recording: Essentially normal configuration.. Pressure gradients: Above the knee bilaterally Ankle-brachial indices: 0.87 on the right and 0.85 on the left.. Toe pressures: 122 on the right, 167 on the left Impression: Suspect mild bilateral SFA disease. Adequate circulatory status for healing bilaterally..
== END | disposition home or self-care (01) ==
LOC: RADUSWWP 08:22
PROVIDERS: ATTEND Surgery
DX: M79.604 Pain in right leg (principal); L97.112 Non-pressure chronic ulcer of right thigh with fat layer exposed
CPT/HCPCS: 93923; 93970

== ENCOUNTER 2018-06-08 07:29 | Day surgery (SDC) | payer OTHER ==
[2018-06-03 14:05] VITALS: BMI 46.4
[~2018-06-08 07:29] MED LIST changes: -ACETAMINOPHEN TAB 500 MG TAB PO ONE; -CLINDAMYCIN 900 MG in DEXTROSE 5% IN WATER 50 ML IVPB ONE; +LACTATED RINGERS 1,000 ML IV SCH; +LIDOCAINE 1% 20 ML VIAL (10MG/ML) FOR IV START INTRADERMA PRN; -MELOXICAM 7.5 MG TAB PO ONE; +MIDAZOLAM 2 MG/2 ML VIAL IV PRN; -TRANEXAMIC ACID 1,000 MG in SODIUM CHLORIDE 0.9% 100 ML IVPB ONE
[2018-06-08 08:03] LABS: Glucose,Whole Blood 122 mg/dL (75-99)
[2018-06-08 08:06] VITALS: RESP 16; TEMP 98.5
[2018-06-08] MEDS ORDERED: PROPOFOL 10 MG/ML 20 ML VIAL IV ONE (08:10)
--- NOTE | 2018-06-08 08:40 | P.PCN ---
Date of Procedure: 06/08/18 Procedure(s) Performed: Procedure: Total colonoscopy. Preoperative diagnosis: Screening for neoplasia, patient has history of polyps. Postoperative diagnosis: Mild diverticulosis with no evidence of acute diverticulitis, strictures, polyps or cancer. Preparation: HalfLytely prep. Sedation: Was provided by anesthesia. Brief clinical history: The patient is a 63-year-old female who is scheduled for this evaluation for screening for neoplasia. She has history of polyps and family history of colon cancer in her aunt. Her last colonoscopy was in April 2012. The patient has no abdominal complaints, bleeding or anemia. Procedure: With the patient on her left lateral decubitus position and after informed consent and adequate sedation, the perianal area was inspected and it did not show any fissures or fistulas. There were no masses felt on digital rectal examination. The Olympus CFQ 160L video colonoscope was then inserted in the rectum in the usual fashion and advanced to the cecum. The mucosa appeared healthy. There was occasional diverticular orifices seen scattered in the sigmoid and around the hepatic flexure with no evidence of acute diverticulitis or strictures. No significant polyps or tumors were seen. I retroflexed the endoscope in the rectum before the endoscope was withdrawn. The patient tolerated the procedure well. Plan: The patient was reassured. Discussed dietary measures. She will follow- up with you as planned and I recommended repeat exam in 5 years.
[2018-06-08 08:54] VITALS: BP 178/65; PULSE 67
== END 2018-06-08 09:08 | disposition home or self-care (01) ==
LOC: ORWHC2ENDO 07:29
DX: Z12.11 Encounter for screening for malignant neoplasm of colon (principal); K57.30 Diverticulosis of large intestine without perforation or abscess without bleeding; I10 Essential (primary) hypertension; E11.9 Type 2 diabetes mellitus without complications; K21.9 Gastro-esophageal reflux disease without esophagitis; M79.7 Fibromyalgia; Z86.010 Personal history of colon polyps; Z88.0 Allergy status to penicillin; Z86.718 Personal history of other venous thrombosis and embolism; Z80.0 Family history of malignant neoplasm of digestive organs
CPT/HCPCS: 45378; J2704

== ENCOUNTER → 2018-10-13 | Outpatient (CLI) | payer OTHER ==
--- NOTE | 2018-10-13 12:59 | FL ---
EXAMINATION TYPE: FL barium swallow w video DATE OF EXAM: 10/13/2018 MODIFIED SWALLOW / DEGLUTITION STUDY CLINICAL HISTORY: Pill dysphagia with regurgitation. Patient describes history of goiter, prior CVA, and prior cervical fusion. TECHNIQUE: Deglutition study is performed utilizing thin liquid barium, honey and nectar thick liqui d barium, barium thick applesauce, and barium coated cracker. 1 minute and 3 seconds of fluoroscopy t grover was utilized. 0 images were saved as the examination was video recorded. COMPARISON: None. FINDINGS: The oral and pharyngeal phases show satisfactory initiation and propagation with all modali ties tested. Normal mastication is seen with solid modalities tested. There is no evidence of penet ration or aspiration with any modality tested. No significant pharyngeal residue was appreciated. IMPRESSION: Unremarkable deglutition study. Please refer to speech therapist notes for further detai ls if necessary.
== END | disposition home or self-care (01) ==
LOC: RADFLMAIN 11:35
PROVIDERS: ATTEND Otolaryngology
DX: R13.10 Dysphagia, unspecified (principal)
CPT/HCPCS: 74230

== ENCOUNTER → 2021-02-07 | Outpatient (CLI) | payer MEDICARE ==
--- NOTE | 2021-02-07 13:41 | CT ---
EXAMINATION TYPE: CT CervThoracic spine wo con DATE OF EXAM: 02/07/2021 COMPARISON: NONE HISTORY: cervical and thoracic pain post fall injury. CT DLP: 3492.7 mGycm. Automated Exposure Control for Dose Reduction was Utilized. TECHNIQUE: CT scan of the cervical and thoracic spine are obtained without contrast, axial images ar e obtained, sagittal and coronal reformatted images are also reviewed. FINDINGS: Cervical spine is visualized in its entirety from C1 through upper thoracic levels, demonst rates straightened alignment without evidence of acute fracture or dislocation. Prevertebral soft ti ssue appears within normal limits. The C1-C2 articulation is within normal limits on the coronal yasmin ges. Vertebral body heights are maintained. Anterior fusion plate with ossific fusion at C5-C6 level. Moderate disc space narrowing with severe anterior spurring C6-C7 level. Mild to moderate disc space narrowing C4-C5 and C7-T1 levels. Spinal canal grossly preserved. Review of axial images shows no large disc herniation. There are uncovertebral facet degenerative sri nges left C3-C4 level causing moderate neural foraminal narrowing and at right C4-C5 level causing mi ld neural foraminal narrowing. Thyroid gland is felt within normal limits. Surgical clips in the righ t neck are present. Thoracic spine shows exaggerated kyphosis. Vertebral body heights are maintained. No acute fracture o r dislocation is seen. Mild to moderate multilevel anterior lateral spurring. Mild to moderate multil evel disc space narrowing. Some multilevel vacuum disc phenomenon in the mid to lower thoracic spine. Spinal canal is grossly preserved. Visualized lungs are clear. There is partial visualization of lap band type device epigastric region in satisfactory position. Coronary artery calcification incidenta lly noted. Mild to moderate calcified plaque in the visualized aorta. IMPRESSION: As above.
== END | disposition home or self-care (01) ==
LOC: RADCTMAIN 11:20
PROVIDERS: ATTEND Orthopaedic Surgery
DX: M48.03 Spinal stenosis, cervicothoracic region (principal); M47.812 Spondylosis without myelopathy or radiculopathy, cervical region
CPT/HCPCS: 72125; 72128

== ENCOUNTER → 2021-02-15 | Day surgery (SDC) | payer MEDICARE ==
[~2021-02-15] MED LIST changes: +LACTATED RINGERS 1,000 ML IV ONE; -LIDOCAINE 1% 20 ML VIAL (10MG/ML) FOR IV START INTRADERMA PRN; +LIDOCAINE 1% INJ 10MG/ML (20 ML MDV) ONE; -MIDAZOLAM 2 MG/2 ML VIAL IV PRN; +PROPOFOL 10 MG/ML 20 ML VIAL IV ONE
[2021-02-15 08:17] VITALS: TEMP 96.9
[2021-02-15 08:36] LABS: Glucose,Whole Blood 110 mg/dL (75-99)
--- NOTE | 2021-02-15 09:02 | P.PCN ---
Date of Procedure: 02/15/21 Procedure(s) Performed: BRIEF HISTORY: Patient is a 60-year-old pleasant white female scheduled for an elective colonoscopy as a part of evaluation of recent episode of acute colitis. She was hospitalized as [facility] in [place] and was treated with antibiotics. She was advised to have a outpatient colonoscopy. The patient states that she did have a colonoscopy while in the hospital and appears to be an incomplete procedure. No records available. Currently she has some change in bowel habits but no active bleeding. PROCEDURE PERFORMED: Colonoscopy with snare polypectomy. PREOPERATIVE DIAGNOSIS: Change in bowel habits. IV sedation per Anesthesia. PROCEDURE: After informed consent was obtained, the patient, was brought into the endoscopy unit. IV sedation was administered by Anesthesia under continuous monitoring. Digital rectal examination was normal. Initially the Olympus CF-160 flexible video colonoscope was then inserted in the rectum, gradually advanced into the cecum without any difficulty. Careful examination was performed as the scope was gradually being withdrawn. Ileocecal valve and the appendiceal orifice were visualized and appeared normal. Prep was excellent. Mucosa of the cecum, appeared normal. In the ascending colon there was a 3 mm polyp that was removed by snare polypectomy. In the hepatic flexure there was a 3 mm polyp and 4 mm polyps both of which were removed by snare polypectomy. Lantus colon there was a 5 limited polyp removed by snare polypectomy. In the sigmoid colon there was a 3 mm polyp removed by snare polypectomy. the rectum appeared normal. Retroflexion was performed in the rectum and no lesions were seen. The patient tolerated the procedure well. IMPRESSION: 3 mm ascending colon polyp status post polypectomy 3 mm, 4 mm 2 hepatic flexure polyps status post polypectomy 5 mm transverse colon polyp status post polypectomy 3 mm sigmoid colon polyp status post polypectomy RECOMMENDATIONS: Findings of this examination were discussed with the patient as well as her family. She was advised to follow with the biopsy results. If the biopsy shows an adenoma she can have a repeat colonoscopy in 3 years
[2021-02-15 09:23] VITALS: RESP 16
[2021-02-15 09:29] VITALS: BP 129/57; PULSE 63
== END ==
LOC: ORWHC2ENDO 07:39
PROVIDERS: ATTEND Internal Medicine Gastroenterology
DX: R19.4 Change in bowel habit (principal); D12.5 Benign neoplasm of sigmoid colon; D12.3 Benign neoplasm of transverse colon; I10 Essential (primary) hypertension; E78.5 Hyperlipidemia, unspecified; M19.90 Unspecified osteoarthritis, unspecified site; E66.01 Morbid (severe) obesity due to excess calories; M79.7 Fibromyalgia; Z79.899 Other long term (current) drug therapy
CPT/HCPCS: 88305; 45385; J2001; J2704

== ENCOUNTER → 2021-03-14 | Outpatient (CLI) | payer MEDICARE ==
--- NOTE | 2021-03-15 05:29 | MR ---
EXAMINATION TYPE: MR cervical spine wo/w con DATE OF EXAM: 03/14/2021 COMPARISON: None HISTORY: Pain in neck, head, and shoulders with right arm/finger pain. CONTRAST: Standard multiplanar, multisequence MRI departmental protocol utilizing 12 mL intravenous Gadavist ga dolinium contrast. The cervical vertebra have normal alignment. There is metal artifact from anterior fusion surgery at C5-6. This obscures the vertebral bodies. Cervical spinal cord has fairly normal signal pattern. Ther e is no edema. I see no evidence of spinal stenosis. Spinal canal measures 8.5 mm at C6-7 which is th e narrowest point. The brainstem appears intact. There is some uncovertebral spurring at C7-T1 on the right side but the neural foramen appears to be adequate. There is no evidence of paraspinal mass. T here is no compression fracture. The contrast images show no pathologic enhancement. IMPRESSION: Fusion surgery in the lower cervical spine. No evidence of any significant spinal stenosis. No fractu re.
== END | disposition home or self-care (01) ==
LOC: RADMRIMAIN 13:25
PROVIDERS: ATTEND Orthopaedic Surgery
DX: M54.2 Cervicalgia (principal)
CPT/HCPCS: 72156; A9585 ×2

== ENCOUNTER 2021-04-20 15:05 | Emergency (ER) | payer MEDICARE ==
[2021-04-20 15:17] VITALS: BP 212/77; PULSE 77; RESP 18; TEMP 97.9
--- NOTE | 2021-04-20 15:27 | ED ---
General Adult HPI - General Chief complaint: Chest Pain Stated complaint: Chest pain Time Seen by Provider: 04/20/21 15:23 Source: patient Mode of arrival: ambulatory Limitations: no limitations - History of Present Illness Initial comments: Dictation was produced using [employer] dictation software. please excuse any grammatical, word or spelling errors. Chief Complaint: 66-year-old female with multiple comorbidities presents emergency department for chest pain History of Present Illness: Is a 66-year-old female presents to the emergency department for chest pain. She states that sharp located to the substernal area. Patient states her pain began suddenly. She states that she does feel like she has associated numbness to her right upper extremity or right jaw. Patient denies any history of heart attacks. She states she does have family history of it. Denies any radiation to her back. No associated diaphoresis or nausea. She went to an urgent care where an EKG was performed. She was sent to the emergency room. The ROS documented in this emergency department record has been reviewed and confirmed by me. Those systems with pertinent positive or negative responses have been documented in the HPI. All other systems are other negative and/or noncontributory. PHYSICAL EXAM: General Impression: Alert and oriented x3, not in acute distress HEENT: Normocephalic atraumatic, extra-ocular movements intact, pupils equal and reactive to light bilaterally, mucous membranes moist. Cardiovascular: Heart regular rate and rhythm Chest: Able to complete full sentences, no retractions, no tachypnea Abdomen: abdomen soft, non-tender, non-distended, no organomegaly Musculoskeletal: Pulses present and equal in all extremities, no peripheral edema Motor: no focal deficits noted Neurological: CN II-XII grossly intact, no focal motor or sensory deficits noted Skin: Intact with no visualized rashes Psych: Normal affect and mood ED course: 66-year-old female presents to the emergency department for atypical chest pain typical features. She has multiple risk factors. Vital signs upon arrival are within acceptable limits. EKG interpretation: Ventricular rate 80, normal sinus rhythm, RI interval 152, QRS 70, QTC 429. No RI prolongation, no QTC prolongation, no ST or T-wave changes noted. EKG compared to 02/10/2017 showing no changes. Overall, this EKG is unremarkable Laboratory evaluation obtained. CBC, coag panel, Motrin is unremarkable. First troponin is negative. Chest x-ray is unremarkable. EKG does not show any signs of ischemia or infarction. Patient was told of her results. He is encouraged to her to be admitted for serial troponins, cardiac observation patient declined and would prefer to be discharge. Given some aspirin. At this point patient's symptoms are atypical however she does have risk factors patient understands the risks of being discharged. She lives at home and states that she can return to the emergency Department immediately if she begins expressing any recurrence of symptoms. Patient has a stress tests scheduled in the near future. She is encouraged to follow up with that and her primary care doctor. - Related Data Home Medications Medication Instructions Recorded Confirmed QUEtiapine [SEROquel] 25 mg PO HS 11/11/16 02/15/21 carBAMazepine [carBAMazepine Susp] 100 mg PO BID 12/18/16 02/15/21 Acetaminophen Oral Susp (Peds) 650 mg PO Q6H PRN 02/10/17 02/15/21 [Tylenol Oral Susp For Peds (Grape)] levETIRAcetam [Levetiracetam] 750 mg PO BID 02/10/17 02/15/21 amLODIPine BESYLATE [Norvasc] 5 mg PO BID 06/03/18 02/15/21 cloNIDine 0.3 MG/24HR PATCH 1 each TRANSDERM TU 06/03/18 02/15/21 [Catapres-Tts 0.3MG Patch] hydrALAZINE HCL [Apresoline] 100 mg PO TID 06/03/18 02/15/21 lisinopriL [Zestril] 20 mg PO BID 06/03/18 02/15/21 Ergocalciferol (Vitamin D2) 10 mcg PO DAILY 01/11/21 02/15/21 [Vitamin D2 (400 Iu)] Garlic 1 each PO DAILY 01/11/21 02/15/21 Allergies Allergy/AdvReac Type Severity Reaction Status Date / Time albuterol Allergy Unknown Verified 04/20/21 15:17 cefdinir [From Omnicef] Allergy Rash/Hives Verified 04/20/21 15:17 ezetimibe [From Zetia] Allergy Rash/Hives Verified 04/20/21 15:17 hydrocodone Allergy Rash/Hives Verified 04/20/21 15:17 Iodinated Contrast Media Allergy Rash/Hives, Verified 04/20/21 15:17 [Iodinated Contrast Media - itching,swe Oral and] lling loracarbef [From Lorabid] Allergy Rash/Hives Verified 04/20/21 15:17 morphine Allergy Rash/Hives Verified 04/20/21 15:17 Penicillins Allergy Rash/Hives Verified 04/20/21 15:17 sulfamethoxazole Allergy Rash/Hives Verified 04/20/21 15:17 [From Septra] topiramate Allergy Unknown Verified 04/20/21 15:17 tramadol Allergy seizures Verified 04/20/21 15:17 trimethoprim [From Septra] Allergy Rash/Hives Verified 04/20/21 15:17 atorvastatin [From Lipitor] AdvReac joint pain Verified 04/20/21 15:17 ibuprofen AdvReac Itching Verified 04/20/21 15:17 ipratropium AdvReac dry throat Verified 04/20/21 15:17 lovastatin AdvReac joint pain Verified 04/20/21 15:17 tiotropium AdvReac dry throat Verified 04/20/21 15:17 [From Spiriva with HandiHaler] mefix tape Allergy Rash/Hives Uncoded 04/20/21 15:17 Review of Systems ROS Statement: Those systems with pertinent positive or pertinent negative responses have been documented in the HPI. ROS Other: All systems not noted in ROS Statement are negative. Past Medical History Past Medical History: Asthma, CVA/TIA, Dementia, GERD/Reflux, Hyperlipidemia, Hypertension Additional Past Medical History / Comment(s): fell & hit her head 04/2016 resulting in hematoma & subsequent stroke x2 with seizure, was hospitalized at [facility] & in rehab after at [facility] after, using cane currently & also still has trouble w/pills & food getting stuck @times, takes no meds for diabetes, rheumatic fever, heart murmur, deaf r ear, pvd, carotid stenosis, dvt r leg, egd, colonoscopy with 2 polyps, short term memory impairment History of Any Multi-Drug Resistant Organisms: None Reported Past Surgical History: Adenoidectomy, Bariatric Surgery, Cholecystectomy, Heart Catheterization With Stent, Hysterectomy, Orthopedic Surgery, Tonsillectomy Additional Past Surgical History / Comment(s): mena. hip replacement, cervical fusion, lap band surgery, bilateral carpal tunnel, panniculectomyquit , r iliac stent, tubes in brain after fall and hematoma 05/10, rt carotid endardectomy,rt leg angioplasty balloon, colonoscopies, flexible sigmoidoscopy Past Anesthesia/Blood Transfusion Reactions: No Reported Reaction Past Psychological History: Anxiety, Depression Smoking Status: Former smoker Past Alcohol Use History: None Reported - Past Family History Sister(s) Family Medical History: Cancer, Coronary Artery Disease (CAD), Hyperlipidemia, Hypertension Additional Family Medical History / Comment(s): aneurysm, heart stents; 4 living sisters, uterine cancer Brother(s) Family Medical History: Hypertension, Myocardial Infarction ([place]) Additional Family Medical History / Comment(s): stents in legs, heart disease, carotid disease, triple bypass; 2 brother : heart disease; 1 brother living Mother Family Medical History: Coronary Artery Disease (CAD), Diabetes Mellitus Additional Family Medical History / Comment(s): Father Family Medical History: Coronary Artery Disease (CAD) Additional Family Medical History / Comment(s): General Exam Limitations: no limitations Course Vital Signs 04/20/21 15:11 Temperature 97.9 F Pulse Rate 77 Respiratory 18 Rate Blood Pressure 212/77 O2 Sat by Pulse 98 Oximetry Medical Decision Making - Lab Data Result diagrams: 04/20/21 15:49 04/20/21 15:49 Lab Results 04/20/21 04/20/21 04/20/21 Range/Units 15:49 15:49 15:49 WBC 6.4 (3.8-10.6) k/uL RBC 3.93 (3.80-5.40) m/uL Hgb 12.6 (11.4-16.0) gm/dL Hct 36.8 (34.0-46.0) % MCV 93.5 (80.0-100.0) fL MCH 32.0 (25.0-35.0) pg MCHC 34.2 (31.0-37.0) g/dL RDW 13.7 (11.5-15.5) % Plt Count 264 (150-450) k/uL MPV 7.1 Neutrophils % 59 % Lymphocytes % 30 % Monocytes % 7 % Eosinophils % 3 % Basophils % 1 % Neutrophils # 3.8 (1.3-7.7) k/uL Lymphocytes # 1.9 (1.0-4.8) k/uL Monocytes # 0.4 (0-1.0) k/uL Eosinophils # 0.2 (0-0.7) k/uL Basophils # 0.0 (0-0.2) k/uL PT 9.7 (9.0-12.0) sec INR 0.9 (<1.2) APTT 22.8 (22.0-30.0) sec Sodium 140 (137-145) mmol/L Potassium 4.7 (3.5-5.1) mmol/L Chloride 104 (98-107) mmol/L Carbon Dioxide 26 (22-30) mmol/L Anion Gap 10 mmol/L BUN 22 H (7-17) mg/dL Creatinine 0.90 (0.52-1.04) mg/dL Est GFR (CKD-EPI)AfAm 77 (>60 ml/min/1.73 sqM) Est GFR (CKD-EPI)NonAf 67 (>60 ml/min/1.73 sqM) Glucose 138 H (74-99) mg/dL Calcium 9.6 (8.4-10.2) mg/dL Magnesium 1.9 (1.6-2.3) mg/dL Total Bilirubin 0.2 (0.2-1.3) mg/dL AST 23 (14-36) U/L ALT 18 (4-34) U/L Alkaline Phosphatase 97 (38-126) U/L Troponin I (0.000-0.034) ng/mL Total Protein 7.2 (6.3-8.2) g/dL Albumin 4.3 (3.5-5.0) g/dL Lipase 69 (23-300) U/L 04/20/21 Range/Units 15:49 WBC (3.8-10.6) k/uL RBC (3.80-5.40) m/uL Hgb (11.4-16.0) gm/dL Hct (34.0-46.0) % MCV (80.0-100.0) fL MCH (25.0-35.0) pg MCHC (31.0-37.0) g/dL RDW (11.5-15.5) % Plt Count (150-450) k/uL MPV Neutrophils % % Lymphocytes % % Monocytes % % Eosinophils % % Basophils % % Neutrophils # (1.3-7.7) k/uL Lymphocytes # (1.0-4.8) k/uL Monocytes # (0-1.0) k/uL Eosinophils # (0-0.7) k/uL Basophils # (0-0.2) k/uL PT (9.0-12.0) sec INR (<1.2) APTT (22.0-30.0) sec Sodium (137-145) mmol/L Potassium (3.5-5.1) mmol/L Chloride (98-107) mmol/L Carbon Dioxide (22-30) mmol/L Anion Gap mmol/L BUN (7-17) mg/dL Creatinine (0.52-1.04) mg/dL Est GFR (CKD-EPI)AfAm (>60 ml/min/1.73 sqM) Est GFR (CKD-EPI)NonAf (>60 ml/min/1.73 sqM) Glucose (74-99) mg/dL Calcium (8.4-10.2) mg/dL Magnesium (1.6-2.3) mg/dL Total Bilirubin (0.2-1.3) mg/dL AST (14-36) U/L ALT (4-34) U/L Alkaline Phosphatase (38-126) U/L Troponin I <0.012 (0.000-0.034) ng/mL Total Protein (6.3-8.2) g/dL Albumin (3.5-5.0) g/dL Lipase (23-300) U/L Disposition Clinical Impression: Chest pain Disposition: HOME SELF-CARE Condition: Good Instructions (If sedation given, give patient instructions): Chest Pain (ED) Is patient prescribed a controlled substance at d/c from ED?: No Referrals: Florian Blackburn DO [Primary Care Provider] - 1-2 days
[2021-04-20 15:57] LABS: Basophils % (A) 1 %; Eosinophils # (A) 0.2 k/uL (0-0.7); Eosinophils % (A) 3 %; HCT 36.8 % (34.0-46.0); HGB 12.6 gm/dL (11.4-16.0); Lymphocytes # (A) 1.9 k/uL (1.0-4.8); Lymphocytes % (A) 30 %; MCHC 34.2 g/dL (31.0-37.0); MCV 93.5 fL (80.0-100.0); Mean Platelet Volume 7.1; Monocytes # (A) 0.4 k/uL (0-1.0); Monocytes % (A) 7 %; Neutrophils # (A) 3.8 k/uL (1.3-7.7); Neutrophils % (A) 59 %; Platelet Count 264 k/uL (150-450); RBC 3.93 m/uL (3.80-5.40); RDW 13.7 % (11.5-15.5); WBC 6.4 k/uL (3.8-10.6)
--- NOTE | 2021-04-20 16:02 | XR ---
EXAMINATION TYPE: XR chest 2V DATE OF EXAM: 04/20/2021 COMPARISON: NONE HISTORY: Chest pain TECHNIQUE: 2 views FINDINGS: Heart is enlarged. There is no heart failure. There are no hilar masses. Costophrenic angle s are clear. Bony thorax is intact. IMPRESSION: No active cardiopulmonary disease. Mild cardiomegaly.
[2021-04-20 16:09] LABS: Albumin 4.3 g/dL (3.5-5.0); Calcium 9.6 mg/dL (8.4-10.2); Magnesium 1.9 mg/dL (1.6-2.3); Potassium 4.7 mmol/L (3.5-5.1); Total Bilirubin 0.2 mg/dL (0.2-1.3); Total Protein 7.2 g/dL (6.3-8.2)
[2021-04-20 16:18] LABS: INR 0.9 (<1.2); Partial Thromboplastin Time 22.8 sec (22.0-30.0); Prothrombin Time 9.7 sec (9.0-12.0)
[2021-04-20] MEDS ORDERED: ASPIRIN 81 MG PO STA (16:52)
== END 2021-04-20 17:20 | disposition home or self-care (01) ==
LOC: EC 15:05
DX: R07.89 Other chest pain (principal); I10 Essential (primary) hypertension; E78.5 Hyperlipidemia, unspecified; J45.909 Unspecified asthma, uncomplicated; K21.9 Gastro-esophageal reflux disease without esophagitis; F03.90 Unspecified dementia, unspecified severity, without behavioral disturbance, psychotic disturbance, mood disturbance, and anxiety; F32.9 Major depressive disorder, single episode, unspecified; F41.9 Anxiety disorder, unspecified; Z87.891 Personal history of nicotine dependence; Z88.0 Allergy status to penicillin; Z88.1 Allergy status to other antibiotic agents; Z88.2 Allergy status to sulfonamides; Z88.5 Allergy status to narcotic agent; Z88.6 Allergy status to analgesic agent; Z88.8 Allergy status to other drugs, medicaments and biological substances; Z86.73 Personal history of transient ischemic attack (TIA), and cerebral infarction without residual deficits; Z82.49 Family history of ischemic heart disease and other diseases of the circulatory system; Z83.3 Family history of diabetes mellitus; Z83.49 Family history of other endocrine, nutritional and metabolic diseases
CPT/HCPCS: 36415; 71046; 80053; 83690; 83735; 84484; 85025; 85610; 85730; 93005; 99285

== ENCOUNTER 2021-04-22 21:32 | Inpatient (IN) | payer MEDICARE ==
[2021-04-22] MEDS ORDERED: NITROGLYCERIN SL TABS 0.4 MG TAB SUBLINGUAL STA (22:20)
--- NOTE | 2021-04-22 22:23 | ED ---
Chest Pain HPI - General Chief Complaint: Chest Pain Stated Complaint: Chest Pain Time Seen by Provider: 04/22/21 22:00 Source: patient, EMS Mode of arrival: EMS Limitations: no limitations - History of Present Illness Initial Comments: Patient is a 66-year-old woman who presents for evaluation of substernal chest pain. The patient states she has been having these pains for some time. She is not able to quantify things well though. She does note she was seen at a facility in [place] on Thursday and then was transferred here Thursday where she was told they would like to keep her in the hospital but she decided to go home. She states the pain however has recurred and has been going on since early afternoon today. She describes it as sharp. It is better sitting up, and worse lying flat. Other than that she has a difficult time characterizing the symptoms. No associated symptoms. MD Complaint: chest pain -: days(s) Onset: during rest Pain Location: substernal Pain Radiation: none Severity: moderate Quality: aching Consistency: intermittent Improves With: other (Sitting up) Worsens With: supine Treatments Prior to Arrival: none - Related Data Home Medications Medication Instructions Recorded Confirmed QUEtiapine [SEROquel] 25 mg PO HS 11/11/16 02/15/21 carBAMazepine [carBAMazepine Susp] 100 mg PO BID 12/18/16 02/15/21 Acetaminophen Oral Susp (Peds) 650 mg PO Q6H PRN 02/10/17 02/15/21 [Tylenol Oral Susp For Peds (Grape)] levETIRAcetam [Levetiracetam] 750 mg PO BID 02/10/17 02/15/21 amLODIPine BESYLATE [Norvasc] 5 mg PO BID 06/03/18 02/15/21 cloNIDine 0.3 MG/24HR PATCH 1 each TRANSDERM TU 06/03/18 02/15/21 [Catapres-Tts 0.3MG Patch] hydrALAZINE HCL [Apresoline] 100 mg PO TID 06/03/18 02/15/21 lisinopriL [Zestril] 20 mg PO BID 06/03/18 02/15/21 Ergocalciferol (Vitamin D2) 10 mcg PO DAILY 01/11/21 02/15/21 [Vitamin D2 (400 Iu)] Garlic 1 each PO DAILY 01/11/21 02/15/21 Allergies Allergy/AdvReac Type Severity Reaction Status Date / Time albuterol Allergy Unknown Verified 04/20/21 15:17 cefdinir [From Omnicef] Allergy Rash/Hives Verified 04/20/21 15:17 ezetimibe [From Zetia] Allergy Rash/Hives Verified 04/20/21 15:17 hydrocodone Allergy Rash/Hives Verified 04/20/21 15:17 Iodinated Contrast Media Allergy Rash/Hives, Verified 04/20/21 15:17 [Iodinated Contrast Media - itching,swe Oral and] lling loracarbef [From Lorabid] Allergy Rash/Hives Verified 04/20/21 15:17 morphine Allergy Rash/Hives Verified 04/20/21 15:17 Penicillins Allergy Rash/Hives Verified 04/20/21 15:17 sulfamethoxazole Allergy Rash/Hives Verified 04/20/21 15:17 [From Septra] topiramate Allergy Unknown Verified 04/20/21 15:17 tramadol Allergy seizures Verified 04/20/21 15:17 trimethoprim [From Septra] Allergy Rash/Hives Verified 04/20/21 15:17 atorvastatin [From Lipitor] AdvReac joint pain Verified 04/20/21 15:17 ibuprofen AdvReac Itching Verified 04/20/21 15:17 ipratropium AdvReac dry throat Verified 04/20/21 15:17 lovastatin AdvReac joint pain Verified 04/20/21 15:17 tiotropium AdvReac dry throat Verified 04/20/21 15:17 [From Spiriva with HandiHaler] mefix tape Allergy Rash/Hives Uncoded 04/20/21 15:17 Review of Systems ROS Statement: Those systems with pertinent positive or pertinent negative responses have been documented in the HPI. ROS Other: All systems not noted in ROS Statement are negative. Constitutional: Denies: fever, chills Respiratory: Denies: cough, dyspnea Cardiovascular: Reports: chest pain. Denies: palpitations, orthopnea, edema, syncope Gastrointestinal: Denies: abdominal pain, vomiting, diarrhea Genitourinary: Denies: dysuria, frequency, hematuria Musculoskeletal: Denies: back pain Skin: Denies: rash Neurological: Denies: headache, weakness, paresthesias EKG Findings - EKG Comments: EKG Findings:: Possible old anterior infarct. Possible old inferior infarct. - EKG Results: EKG: interpreted by ERMD, sinus rhythm (867 bpm), normal axis, normal ST/T Past Medical History Past Medical History: Asthma, CVA/TIA, Dementia, GERD/Reflux, Hyperlipidemia, Hypertension Additional Past Medical History / Comment(s): fell & hit her head 04/2016 resulting in hematoma & subsequent stroke x2 with seizure, was hospitalized at [facility] & in rehab after at [facility] after, using cane currently & also still has trouble w/pills & food getting stuck @times, takes no meds for diabetes, rheumatic fever, heart murmur, deaf r ear, pvd, carotid stenosis, dvt r leg, egd, colonoscopy with 2 polyps, short term memory impairment History of Any Multi-Drug Resistant Organisms: None Reported Past Surgical History: Adenoidectomy, Bariatric Surgery, Cholecystectomy, Heart Catheterization With Stent, Hysterectomy, Orthopedic Surgery, Tonsillectomy Additional Past Surgical History / Comment(s): mena. hip replacement, cervical fusion, lap band surgery, bilateral carpal tunnel, panniculectomyquit , r iliac stent, tubes in brain after fall and hematoma 05/10, rt carotid endardectomy,rt leg angioplasty balloon, colonoscopies, flexible sigmoidoscopy Past Anesthesia/Blood Transfusion Reactions: No Reported Reaction Past Psychological History: Anxiety, Depression Smoking Status: Former smoker Past Alcohol Use History: None Reported - Past Family History Sister(s) Family Medical History: Cancer, Coronary Artery Disease (CAD), Hyperlipidemia, Hypertension Additional Family Medical History / Comment(s): aneurysm, heart stents; 4 living sisters, uterine cancer Brother(s) Family Medical History: Hypertension, Myocardial Infarction ([place]) Additional Family Medical History / Comment(s): stents in legs, heart disease, carotid disease, triple bypass; 2 brother : heart disease; 1 brother living Mother Family Medical History: Coronary Artery Disease (CAD), Diabetes Mellitus Additional Family Medical History / Comment(s): Father Family Medical History: Coronary Artery Disease (CAD) Additional Family Medical History / Comment(s): General Exam Limitations: no limitations General appearance: alert, in no apparent distress Head exam: Present: atraumatic, normocephalic Eye exam: Present: normal appearance. Absent: scleral icterus, conjunctival injection Neck exam: Present: normal inspection Respiratory exam: Present: normal lung sounds bilaterally. Absent: respiratory distress, wheezes, rales, rhonchi, stridor, chest wall tenderness Cardiovascular Exam: Present: regular rate, normal rhythm, systolic murmur (2/6 systolic ejection murmur). Absent: diastolic murmur, rubs, gallop GI/Abdominal exam: Present: soft. Absent: distended, tenderness, guarding, rebound, rigid, mass Extremities exam: Present: normal inspection, normal capillary refill. Absent: pedal edema, calf tenderness Back exam: Present: normal inspection. Absent: CVA tenderness (R), CVA tenderness (L) Neurological exam: Present: alert Skin exam: Present: warm, dry, intact, normal color. Absent: rash Course Vital Signs 04/22/21 21:48 Temperature 98.4 F Pulse Rate 70 Respiratory 20 Rate Blood Pressure 204/73 O2 Sat by Pulse 97 Oximetry Disposition Clinical Impression: Chest pain Disposition: ADMITTED IP TO THIS HOSP Condition: Fair Instructions (If sedation given, give patient instructions): Chest Pain (ED) Is patient prescribed a controlled substance at d/c from ED?: No Referrals: None,Stated [Primary Care Provider] - 1-2 days
[2021-04-22 23:19] LABS: Albumin 4.4 g/dL (3.5-5.0); Calcium 9.5 mg/dL (8.4-10.2); Potassium 4.8 mmol/L (3.5-5.1); Total Bilirubin 0.4 mg/dL (0.2-1.3); Total Protein 7.5 g/dL (6.3-8.2)
--- NOTE | 2021-04-22 23:37 | XR ---
EXAMINATION TYPE: XR chest 2V DATE OF EXAM: 04/22/2021 COMPARISON: 04/20/2021 HISTORY: Chest pain TECHNIQUE: 2 views FINDINGS: Heart is enlarged. There is no heart failure. Costophrenic angles are clear. There are no h ilar masses. There are chest leads. Diaphragm is normal. IMPRESSION: Mild cardiomegaly. No active cardiopulmonary disease. No change.
[2021-04-23] MEDS ORDERED: NITROGLYCERIN SL TABS 0.4 MG TAB SUBLINGUAL PRN (00:39)
[2021-04-23 00:52] LABS: Basophils % (A) 1 %; Eosinophils # (A) 0.2 k/uL (0-0.7); Eosinophils % (A) 3 %; HCT 36.5 % (34.0-46.0); Lymphocytes # (A) 2.9 k/uL (1.0-4.8); Lymphocytes % (A) 36 %; MCH 30.8 pg (25.0-35.0); MCHC 32.9 g/dL (31.0-37.0); MCV 93.5 fL (80.0-100.0); Mean Platelet Volume 7.1; Monocytes # (A) 0.6 k/uL (0-1.0); Monocytes % (A) 7 %; Neutrophils # (A) 4.3 k/uL (1.3-7.7); Neutrophils % (A) 52 %; Platelet Count 237 k/uL (150-450); RBC 3.91 m/uL (3.80-5.40); RDW 13.8 % (11.5-15.5); WBC 8.2 k/uL (3.8-10.6)
[2021-04-23 01:01] LABS: INR 0.9 (<1.2); Partial Thromboplastin Time 22.8 sec (22.0-30.0); Prothrombin Time 9.9 sec (9.0-12.0)
[2021-04-23] MEDS ORDERED: ACETAMINOPHEN TAB 325 MG TAB PO PRN (02:48)
[2021-04-23] MEDS ORDERED: ACETAMINOPHEN TAB 325 MG TAB PO STA (02:48)
[2021-04-23] MEDS: amLODIPine 5 MG TAB PO SCH ×2 (09:39→21:17)
[2021-04-23] MEDS: lisinopriL 20 MG TAB PO SCH ×2 (09:39→21:17)
[2021-04-23] MEDS: hydrALAZINE HCL 50 MG TAB PO SCH ×3 (09:39→21:17)
[2021-04-23] MEDS ORDERED: cloNIDine 0.3 MG/24HR PATCH TRANSDERM SCH (09:45)
[2021-04-23] MEDS: levETIRAcetam ORAL SOLN 500 MG/5 ML CUP PO SCH ×2 (12:47→21:16)
--- NOTE | 2021-04-23 14:01 | P.CRDCN ---
History of Present Illness History of present illness: HISTORY OF PRESENTING ILLNESS This is a pleasant 66-year-old female past medical history significant for type 2 diabetes, hypertension, dyslipidemia, CVA, former nicotine dependence, peripheral vascular disease status post angioplasty and stenting of the left SFA, carotid disease status post right carotid endarterectomy and known to have occluded left internal carotid artery. She follows in the office with Dr. Bruno, she is a new patient and saw him on 03/29/2021. At that visit patient did have similiar chest discomfort that she states started after a fall that she had in May. An EKG was performed in the office which was concerning and showed sinus rhythm with poor R wave progression probably old anteriorseptal myocardial infarction. Dr. Bruno ordered a Lexiscan stress test and echocardiogram patient was scheduled to get these done on April 26 and May 02, 2021. Patient states she also went to another facility/urgent care and was told her EKG was abnormal. Patient presents to the emergency department 04/22 night with increased chest discomfort. Patient is seen and examined in the emergency department. Patient states that she started to have chest pain yesterday around 1 PM. She was vaccuming and doing house work. Started to have central sharp 10/10 chest pain. Non radiating. Non exertional. Palpation and deep breathing makes it worse. Nothing relieves the pain, however, Tylenol helps make the pain slightly better. She had slight nausea this morning. Associated symptoms include shortness of breath. She states she had similar pain in May 2020, when she fell backwards, hit her head and between her shoulder blade. She denies history of NM. She states that she's had a stress test before but that was years ago, she was told that everything was normal at that time. Current home cardiac medications include lisinopril 20 mg twice a day, hydralazine 100 mg 3 times a day, aspirin 81 mg daily, metoprolol succinate 25 mg nightly, amlodipine 5 mg twice a day, clonidine 0.3 mg patch changed every Thursday, she states that she's been not taking her statin for some time now because of the side effects. Patient was hypotensive 204/73 on arrival to emergency department, patient did not have any of her antihypertensives DIAGNOSTICS EKG reveals sinus rhythm, heart rate 67 to inversions in lead III, poor R wave progression. Chest xray no acute cardiopulmonary process. Laboratory reviewed, troponin negative 3, CBC unremarkable, sodium 140, potassium 4.8, BUN 32, serum creatinine 1.07, magnesium 2.0, COVID-19 negative REVIEW OF SYSTEMS At the time of my exam: CONSTITUTIONAL: Denies fever or chills. CARDIOVASCULAR: +chest pain, +shortness of breath Denies orthopnea, PND or palpitations. RESPIRATORY: Denies cough. GASTROINTESTINAL: Denies abdominal pain, diarrhea, constipation, nausea or vomiting. MUSCULOSKELETAL: Denies myalgias. NEUROLOGIC: Denies numbness, tingling, headacbe or weakness. ENDOCRINE: Denies fatigue, weight change, polydipsia or polyurina. GENITOURINARY: Denies burning, hematuria or urgency with micturation. HEMATOLOGIC: Denies history of anemia or bleeding. PHYSICAL EXAMINATION Blood pressure 155/72 heart rate 66 afebrile and maintaining oxygen saturation 99% on room air CONSTITUTIONAL: No apparent distress. HEENT: Head is normocephalic. Pupils are equal, round. Sclerae anicteric. Mucous membranes of the mouth are moist. No JVD. No carotid bruit. CHEST EXAMINATION: Lungs are clear to auscultation. No chest wall tenderness is noted on palpation or with deep breathing. HEART EXAMINATION: Regular rate and rhythm. S1, S2 heard. Systolic murmur noted. No gallops or rub. ABDOMEN: Soft, nontender. Positive bowel sounds. EXTREMITIES: 2+ peripheral pulses, 2+ bilateral lower extremity edema and no calf tenderness. SKIN: redness bilateral shins NEUROLOGIC EXAMINATION: Patient is awake, alert and oriented x3. ASSESSMENT Chest pain, atypical, acute coronary syndrome has been ruled out Type 2 diabetes Hypertension Dyslipidemia, intolerant of statins due to side effects myalgias History of CVA Peripheral vascular disease Obesity BMI 52 PLAN An acute coronary event has been ruled out with no EKG evidence of ischemia and negative cardiac enzymes. Will restart patient's cardiac medications She refused statin due to her previous side effects Obtain 2D echocardiogram and doppler study to assess cardiac structure and function. NPO after midnight Perform Lexiscan stress test to assess for stress induced cardiac ischemia. If abnormal will consider coronary angiography. Lipid panel ordered If Lexiscan stress test is normal and no acute findings on Echocardiogram, patient can be discharged and follow up with Dr. Bruno as an outpatient Thank you kindly for this consultation. Nurse Practitioner note has been reviewed, I agree with a documented findings and plan of care. Patient was seen and examined. Past Medical History Past Medical History: Asthma, CVA/TIA, Dementia, GERD/Reflux, Hyperlipidemia, Hypertension Additional Past Medical History / Comment(s): fell & hit her head 04/2016 resulting in hematoma & subsequent stroke x2 with seizure, was hospitalized at [facility] & in rehab after at [facility] after, using cane currently & also still has trouble w/pills & food getting stuck @times, takes no meds for diabetes, rheumatic fever, heart murmur, deaf r ear, pvd, carotid stenosis, dvt r leg, egd, colonoscopy with 2 polyps, short term memory impairment History of Any Multi-Drug Resistant Organisms: None Reported Past Surgical History: Adenoidectomy, Bariatric Surgery, Cholecystectomy, Heart Catheterization With Stent, Hysterectomy, Orthopedic Surgery, Tonsillectomy Additional Past Surgical History / Comment(s): mena. hip replacement, cervical fusion, lap band surgery, bilateral carpal tunnel, panniculectomyquit , r iliac stent, tubes in brain after fall and hematoma 05/10, rt carotid endardectomy,rt leg angioplasty balloon, colonoscopies, flexible sigmoidoscopy Past Anesthesia/Blood Transfusion Reactions: No Reported Reaction Past Psychological History: Anxiety, Depression Smoking Status: Former smoker Past Alcohol Use History: None Reported - Past Family History Sister(s) Family Medical History: Cancer, Coronary Artery Disease (CAD), Hyperlipidemia, Hypertension Additional Family Medical History / Comment(s): aneurysm, heart stents; 4 living sisters, uterine cancer Brother(s) Family Medical History: Hypertension, Myocardial Infarction ([place]) Additional Family Medical History / Comment(s): stents in legs, heart disease, carotid disease, triple bypass; 2 brother : heart disease; 1 brother living Mother Family Medical History: Coronary Artery Disease (CAD), Diabetes Mellitus Additional Family Medical History / Comment(s): Father Family Medical History: Coronary Artery Disease (CAD) Additional Family Medical History / Comment(s): Medications and Allergies Home Medications Medication Instructions Recorded Confirmed Type QUEtiapine [SEROquel] 25 mg PO HS 11/11/16 04/23/21 History carBAMazepine [carBAMazepine Susp] 100 mg PO BID 12/18/16 04/23/21 History levETIRAcetam [Levetiracetam] 750 mg PO BID 02/10/17 04/23/21 History cloNIDine 0.3 MG/24HR PATCH 1 patch TRANSDERM TU 06/03/18 04/23/21 History [Catapres-Tts 0.3MG Patch] lisinopriL [Zestril] 20 mg PO BID 06/03/18 04/23/21 History Acetaminophen Tab [Tylenol Tab] 500 mg PO BID 04/23/21 04/23/21 History Aspirin 81 mg PO HS 04/23/21 04/23/21 History Cholecalciferol (Vitamin D3) 225 mcg PO DAILY 04/23/21 04/23/21 History [Vitamin D3 (3000 Iu)] Ferrous Sulfate [Feosol] 325 mg PO DAILY 04/23/21 04/23/21 History Metoprolol Succinate (ER) [Toprol 25 mg PO HS 04/23/21 04/23/21 History Xl] Pravastatin Sodium 80 mg PO HS 04/23/21 04/23/21 History amLODIPine [Norvasc] 5 mg PO BID 04/23/21 04/23/21 History hydrALAZINE HCL [Apresoline] 100 mg PO TID 04/23/21 04/23/21 History Allergies Allergy/AdvReac Type Severity Reaction Status Date / Time cefdinir [From Omnicef] Allergy Rash/Hives Verified 04/23/21 07:19 ezetimibe [From Zetia] Allergy Rash/Hives Verified 04/23/21 07:19 Gadolinium-Containing Allergy Itching Verified 04/23/21 07:19 Contrast Medi hydrocodone Allergy Rash/Hives Verified 04/23/21 07:19 ibuprofen Allergy Itching Verified 04/23/21 07:19 Iodinated Contrast Media Allergy Rash/Hives, Verified 04/23/21 07:19 [Iodinated Contrast Media - itching,swe Oral and] lling loracarbef [From Lorabid] Allergy Rash/Hives Verified 04/23/21 07:19 morphine Allergy Rash/Hives Verified 04/23/21 07:19 Penicillins Allergy Rash/Hives Verified 04/23/21 07:19 sulfamethoxazole Allergy Rash/Hives Verified 04/23/21 07:19 [From Septra] topiramate Allergy Unknown Verified 04/23/21 07:19 trimethoprim [From Septra] Allergy Rash/Hives Verified 04/23/21 07:19 albuterol AdvReac DRY THROAT Verified 04/23/21 07:19 atorvastatin [From Lipitor] AdvReac joint pain Verified 04/23/21 07:19 ipratropium AdvReac dry throat Verified 04/23/21 07:19 lovastatin AdvReac joint pain Verified 04/23/21 07:19 tiotropium AdvReac dry throat Verified 04/23/21 07:19 [From Spiriva with HandiHaler] tramadol AdvReac seizures Verified 04/23/21 07:19 mefix tape Allergy Rash/Hives Uncoded 04/23/21 07:19 Physical Exam Vitals: Vital Signs Temp Pulse Resp BP Pulse Ox 04/23/21 00:46 64 18 190/66 98 04/22/21 21:48 98.4 F 70 20 204/73 97 Intake and Output 04/22/21 04/23/21 04/23/21 22:59 06:59 14:59 Other: Weight 142.428 kg Results 04/23/21 00:25 04/22/21 22:52 Cardiac Enzymes 04/22/21 04/22/21 04/23/21 Range/Units 22:52 22:52 02:27 AST 32 (14-36) U/L Troponin I <0.012 <0.012 (0.000-0.034) ng/mL 04/23/21 Range/Units 05:13 AST (14-36) U/L Troponin I <0.012 (0.000-0.034) ng/mL Coagulation 04/23/21 Range/Units 00:25 PT 9.9 (9.0-12.0) sec APTT 22.8 (22.0-30.0) sec CBC 04/23/21 Range/Units 00:25 WBC 8.2 (3.8-10.6) k/uL RBC 3.91 (3.80-5.40) m/uL Hgb 12.0 (11.4-16.0) gm/dL Hct 36.5 (34.0-46.0) % Plt Count 237 (150-450) k/uL Comprehensive Metabolic Panel 04/22/21 Range/Units 22:52 Sodium 140 (137-145) mmol/L Potassium 4.8 (3.5-5.1) mmol/L Chloride 105 (98-107) mmol/L Carbon Dioxide 26 (22-30) mmol/L BUN 32 H (7-17) mg/dL Creatinine 1.07 H (0.52-1.04) mg/dL Glucose 109 H (74-99) mg/dL Calcium 9.5 (8.4-10.2) mg/dL AST 32 (14-36) U/L ALT 17 (4-34) U/L Alkaline Phosphatase 88 (38-126) U/L Total Protein 7.5 (6.3-8.2) g/dL Albumin 4.4 (3.5-5.0) g/dL Current Medications Generic Name Dose Route Start Last Admin Trade Name Freq PRN Reason Stop Dose Admin Acetaminophen 650 mg 04/23/21 02:48 Acetaminophen Tab 325 Mg Tab PO Q6HR PRN Pain Amlodipine Besylate 5 mg 04/23/21 09:30 Amlodipine 5 Mg Tab PO BID [facility] Aspirin 81 mg 04/23/21 21:00 Aspirin 81 Mg PO HS [facility] Clonidine HCl 1 patch 04/23/21 09:30 Clonidine 0.3 Mg/24hr Patch TRANSDERM TU [facility] Lisinopril 20 mg 04/23/21 09:30 Lisinopril 20 Mg Tab PO BID [facility] Nitroglycerin 0.4 mg 04/23/21 00:39 Nitroglycerin Sl Tabs 0.4 Mg Tab SUBLINGUAL Q5M PRN Chest Pain Non-Formulary Medication 100 mg 04/23/21 09:30 Hydralazine Hcl [Apresoline] PO TID [facility] Intake and Output 04/22/21 04/23/21 04/23/21 22:59 06:59 14:59 Other: Weight 142.428 kg 04/23/21 00:25 04/22/21 22:52
--- NOTE | 2021-04-23 15:18 | P.HPIM ---
History of Present Illness Patient came in with complaints of chest pain has been gaining going on for few days appears to be musculoskeletal reproducible. Patient was also complaining of some nausea with food. Patient had an EKG that was done in PCPs office which showed poor R-wave progression possible old anteroseptal [place] because of which a patient was sent to the cardiology and patient is supposed to get stress test on April 26 although patient the continue to have severe sharp pain because of which patient came to ER. Patient denied any shortness of breath lightheadedness diaphoresis associated with that patient the head 8/10 severe pain presently 6/10 severe. Patient chest pain is clearly reproducible over the bony prominences appears to be costochondritis. EKG showed some nonspecific T-wave inversions in lead 3 and poor R-wave progression. Chest x-ray did not show any significant abnormality. Patient was evaluated cardiology the recommending an echocardiogram and a stress test and stress test is negative patient will be discharged. REVIEW OF SYSTEMS: CONSTITUTIONAL: No fever, no malaise, no fatigue. HEENT: No recent visual problems or hearing problems. Denied any sore throat. CARDIOVASCULAR: No c orthopnea, PND, no palpitations, no syncope. PULMONARY: No shortness of breath, no cough, no hemoptysis. GASTROINTESTINAL: No diarrhea, no nausea, no vomiting, no abdominal pain. NEUROLOGICAL: No headaches, no weakness, no numbness. HEMATOLOGICAL: Denies any bleeding or petechiae. GENITOURINARY: Denies any burning micturition, frequency, or urgency. MUSCULOSKELETAL/RHEUMATOLOGICAL: Denies any joint pain, swelling, or any muscle pain. ENDOCRINE: Denies any polyuria or polydipsia. The rest of the 14-point review of systems is negative. PHYSICAL EXAMINATION: GENERAL: The patient is alert and oriented x3, not in any acute distress. Well developed, well nourished. HEENT: Pupils are round and equally reacting to light. EOMI. No scleral icterus. No conjunctival pallor. Normocephalic, atraumatic. No pharyngeal erythema. No thyromegaly. CARDIOVASCULAR: S1 and S2 present. No murmurs, rubs, or gallops. Reproducible chest pain PULMONARY: Chest is clear to auscultation, no wheezing or crackles. ABDOMEN: Soft, nontender, nondistended, normoactive bowel sounds. No palpable organomegaly. MUSCULOSKELETAL: No joint swelling or deformity. EXTREMITIES: No cyanosis, clubbing, or pedal edema. NEUROLOGICAL: Gross neurological examination did not reveal any focal deficits. SKIN: No rashes. Assessment and plan -Chest pain atypical reproducible, mostly due to costochondritis ruling out acute coronary syndromes patient will undergo stress test and echocardiogram tomorrow -Type 2 diabetes mellitus 7 hypertension: Uncontrolled elevated continue with home medications depending on her blood pressure will titrate the blood pressure medications. -Dyslipidemia -CVA in the past -Peripheral vascular disease -Morbid obesity For above-mentioned chronic medical problems patient will be resumed on appropriate home medications, DVT prophylaxis early ambulation. Past Medical History Past Medical History: Asthma, COPD, CVA/TIA, Dementia, GERD/Reflux, Hyperlipidemia, Hypertension Additional Past Medical History / Comment(s): fell & hit her head 04/2016 resulting in hematoma & subsequent stroke x2 with seizure, was hospitalized at [facility] & in rehab after at [facility] after, using cane currently & also still has trouble w/pills & food getting stuck @times, takes no meds for diabetes, rheumatic fever, heart murmur, deaf r ear, pvd, carotid stenosis, dvt r leg, egd, colonoscopy with 2 polyps, short term memory impairment History of Any Multi-Drug Resistant Organisms: None Reported Past Surgical History: Adenoidectomy, Bariatric Surgery, Cholecystectomy, Heart Catheterization With Stent, Hysterectomy, Orthopedic Surgery, Tonsillectomy Additional Past Surgical History / Comment(s): mena. hip replacement, cervical fusion, lap band surgery , bilateral carpal tunnel, panniculectomyquit , r iliac stent, tubes in brain after fall and hematoma 05/10, rt carotid endardectomy,rt leg angioplasty balloon, colonoscopies, flexible sigmoidoscopy Past Anesthesia/Blood Transfusion Reactions: No Reported Reaction Date of Last Stent Placement:: no know by pt Past Psychological History: Anxiety, Depression Smoking Status: Former smoker Past Alcohol Use History: None Reported Additional Past Alcohol Use History / Comment(s): quit smoking 2006 "smoked many years Past Drug Use History: None Reported - Past Family History Sister(s) Family Medical History: Cancer, Coronary Artery Disease (CAD), Hyperlipidemia, Hypertension Additional Family Medical History / Comment(s): aneurysm, heart stents; 4 living sisters, uterine cancer Brother(s) Family Medical History: Hypertension, Myocardial Infarction ([place]) Additional Family Medical History / Comment(s): stents in legs, heart disease, carotid disease, triple bypass; 2 brother : heart disease; 1 brother living Mother Family Medical History: Coronary Artery Disease (CAD), Diabetes Mellitus Additional Family Medical History / Comment(s): Father Family Medical History: Coronary Artery Disease (CAD) Additional Family Medical History / Comment(s): Medications and Allergies Home Medications Medication Instructions Recorded Confirmed Type QUEtiapine [SEROquel] 25 mg PO HS 11/11/16 04/23/21 History carBAMazepine [carBAMazepine Susp] 100 mg PO BID 12/18/16 04/23/21 History levETIRAcetam [Levetiracetam] 750 mg PO BID 02/10/17 04/23/21 History cloNIDine 0.3 MG/24HR PATCH 1 patch TRANSDERM TU 06/03/18 04/23/21 History [Catapres-Tts 0.3MG Patch] lisinopriL [Zestril] 20 mg PO BID 06/03/18 04/23/21 History Acetaminophen Tab [Tylenol Tab] 500 mg PO BID 04/23/21 04/23/21 History Aspirin 81 mg PO HS 04/23/21 04/23/21 History Cholecalciferol (Vitamin D3) 225 mcg PO DAILY 04/23/21 04/23/21 History [Vitamin D3 (3000 Iu)] Ferrous Sulfate [Feosol] 325 mg PO DAILY 04/23/21 04/23/21 History Metoprolol Succinate (ER) [Toprol 25 mg PO HS 04/23/21 04/23/21 History Xl] Pravastatin Sodium 80 mg PO HS 04/23/21 04/23/21 History amLODIPine [Norvasc] 5 mg PO BID 04/23/21 04/23/21 History hydrALAZINE HCL [Apresoline] 100 mg PO TID 04/23/21 04/23/21 History Allergies Allergy/AdvReac Type Severity Reaction Status Date / Time cefdinir [From Omnicef] Allergy Rash/Hives Verified 04/23/21 07:19 ezetimibe [From Zetia] Allergy Rash/Hives Verified 04/23/21 07:19 Gadolinium-Containing Allergy Itching Verified 04/23/21 07:19 Contrast Medi hydrocodone Allergy Rash/Hives Verified 04/23/21 07:19 ibuprofen Allergy Itching Verified 04/23/21 07:19 Iodinated Contrast Media Allergy Rash/Hives, Verified 04/23/21 07:19 [Iodinated Contrast Media - itching,swe Oral and] lling loracarbef [From Lorabid] Allergy Rash/Hives Verified 04/23/21 07:19 morphine Allergy Rash/Hives Verified 04/23/21 07:19 Penicillins Allergy Rash/Hives Verified 04/23/21 07:19 sulfamethoxazole Allergy Rash/Hives Verified 04/23/21 07:19 [From Septra] topiramate Allergy Unknown Verified 04/23/21 07:19 trimethoprim [From Septra] Allergy Rash/Hives Verified 04/23/21 07:19 albuterol AdvReac DRY THROAT Verified 04/23/21 07:19 atorvastatin [From Lipitor] AdvReac joint pain Verified 04/23/21 07:19 ipratropium AdvReac dry throat Verified 04/23/21 07:19 lovastatin AdvReac joint pain Verified 04/23/21 07:19 tiotropium AdvReac dry throat Verified 04/23/21 07:19 [From Spiriva with HandiHaler] tramadol AdvReac seizures Verified 04/23/21 07:19 mefix tape Allergy Rash/Hives Uncoded 04/23/21 07:19 Physical Exam Vitals: Vital Signs Temp Pulse Pulse Resp BP BP Pulse Ox 04/23/21 13:39 75 197/88 04/23/21 12:54 68 211/89 04/23/21 12:46 68 205/103 04/23/21 10:36 69 18 187/94 99 04/23/21 09:37 66 18 155/72 97 04/23/21 00:46 64 18 190/66 98 04/22/21 21:48 98.4 F 70 20 204/73 97 Intake and Output 04/23/21 04/23/21 04/23/21 06:59 14:59 22:59 Intake Total 300 Balance 300 Intake: Oral 300 Other: Weight 142.428 kg Results CBC & Chem 7: 04/23/21 00:25 04/22/21 22:52 Labs: Abnormal Lab Results - Last 24 Hours (Table) 04/22/21 Range/Units 22:52 BUN 32 H (7-17) mg/dL Creatinine 1.07 H (0.52-1.04) mg/dL Glucose 109 H (74-99) mg/dL Thrombosis Risk Factor Assmnt - Choose All That Apply Any of the Below Risk Factors Present?: Yes Each Factor Represents 1 point: Abnormal pulmonary function (COPD) Other Risk Factors: Yes Each Risk Factor Represents 2 Points: Age 61-74 years Other congenital or acquired thrombophilia - If yes, enter type in comment: No Thrombosis Risk Factor Assessment Total Risk Factor Score: 3 Thrombosis Risk Factor Assessment Level: Moderate Risk
--- NOTE | 2021-04-23 17:00 | ECHOF ---
Referral Reason:LV function, chest pain MEASUREMENTS -------- HEIGHT: 165.1 cm WEIGHT: 142.4 kg BP: 211/89 RVIDd: 3.4 cm (< 3.3) IVSd: 1.5 cm (0.6 - 1.1) LVIDd: 3.3 cm (3.9 - 5.3) LVPWd: 1.2 cm (0.6 - 1.1) IVSs: 1.8 cm LVIDs: 2.3 cm LVPWs: 1.7 cm Ao Diam: 3.2 cm (2.0 - 3.7) AV Cusp: 1.6 cm (1.5 - 2.6) LA Diam: 5.1 cm (2.7 - 3.8) MV E Ubaldo: 0.93 m/s MV DecT: 366 ms MV A Ubaldo: 1.30 m/s MV E/A Ratio: 0.71 AV maxP.96 mmHg AV meanP.93 mmHg RAP: 5.00 mmHg RVSP: 23.18 mmHg FINDINGS -------- Sinus rhythm. This was a technically difficult study with suboptimal views. Patient was scanned sitting up position. The left ventricular size is normal. There is moderate concentric left ventricular hypertrophy. O verall left ventricular systolic function is normal with, an EF between 55 - 60 %. The right ventricle is mildly enlarged. The left atrium is moderately dilated. The right atrium was not well visualized. 5.0mg of Lumason was utilized for enhancement of images Interatrial and interventricular septum intact. There is no evidence of aortic regurgitation. There is no evidence of aortic stenosis. Mild mitral regurgitation is present. Mild tricuspid regurgitation present. There is no evidence of pulmonary hypertension. The right v entricular systolic pressure, as measured by Doppler, is 23.18mmHg. There is no pulmonic regurgitation present. The aortic root size is normal. IVC Not well visulized. There is a moderate pericardial effusion located near the left ventricle. CONCLUSIONS -------- 1. The left ventricular size is normal. 2. There is moderate concentric left ventricular hypertrophy. 3. Overall left ventricular systolic function is normal with, an EF between 55 - 60 %. 4. The right ventricle is mildly enlarged. 5. The left atrium is moderately dilated. 6. Mild mitral regurgitation is present. 7. Mild tricuspid regurgitation present. 8. There is a moderate pericardial effusion located near the left ventricle. RESIDENTIAL SALES MANAGER: Marybel Smith RDCS
[2021-04-23 17:15] LABS: Glucose,Whole Blood 112 mg/dL (75-99)
[2021-04-23] MEDS: ASPIRIN 81 MG PO SCH (21:17)
[2021-04-23] MEDS: METOPROLOL SUCCINATE (ER) 25 MG TAB.ER.24H PO SCH (21:17)
[2021-04-23] MEDS: PRAVASTATIN SODIUM 80 MG TAB PO SCH (21:17)
[2021-04-23] MEDS: QUEtiapine 25 MG TAB PO SCH (21:17)
[2021-04-23] MEDS: ACETAMINOPHEN TAB 500 MG TAB PO SCH (21:17)
[2021-04-23] MEDS: COLCHICINE 0.6 MG EACH PO SCH (21:18)
[2021-04-23 21:28] LABS: Glucose,Whole Blood 107 mg/dL (75-99)
[2021-04-24] MEDS ORDERED: AMINOPHYLLINE 500 MG/20 ML VIAL IV PRN (07:00)
[2021-04-24] MEDS ORDERED: REGADENOSON 0.4 MG/5 ML SYRINGE IV PRN (07:00)
[2021-04-24] MEDS ORDERED: CAFFEINE CITRATE 60 MG/3 ML VIAL IV PRN (07:00)
[2021-04-24 07:21] LABS: Glucose,Whole Blood 109 mg/dL (75-99)
[2021-04-24] MEDS ORDERED: ASPIRIN 325 MG TAB PO SCH (09:00)
[2021-04-24] MEDS: ACETAMINOPHEN TAB 500 MG TAB PO SCH ×2 (09:19→20:16)
[2021-04-24] MEDS: CHOLECALCIFEROL 25 MCG (1000 IU) TABLET PO SCH (09:19)
[2021-04-24] MEDS: amLODIPine 5 MG TAB PO SCH ×2 (09:19→20:18)
[2021-04-24] MEDS: lisinopriL 20 MG TAB PO SCH ×2 (09:19→20:18)
[2021-04-24] MEDS: levETIRAcetam ORAL SOLN 500 MG/5 ML CUP PO SCH ×2 (09:21→20:18)
[2021-04-24] MEDS: hydrALAZINE HCL 50 MG TAB PO SCH ×3 (09:22→20:17)
[2021-04-24] MEDS: COLCHICINE 0.6 MG EACH PO SCH ×2 (09:23→20:17)
[2021-04-24 10:38] LABS: Chol/HDL Ratio 6.09
[2021-04-24 11:57] LABS: Glucose,Whole Blood 157 mg/dL (75-99)
--- NOTE | 2021-04-24 14:13 | P.PN ---
Subjective This is a pleasant 66-year-old female past medical history significant for type 2 diabetes, hypertension, dyslipidemia, CVA, former nicotine dependence, peripheral vascular disease status post angioplasty and stenting of the left SFA, carotid disease status post right carotid endarterectomy and known to have occluded left internal carotid artery. She follows in the office with Dr. Bruno, she is a new patient and saw him on 03/29/2021. At that visit patient did have similiar chest discomfort that she states started after a [place] that she [place]. An EKG was performed in the office which was concerning and showed sinus rhythm with poor R wave progression probably old anteriorseptal myocardial infarction. Dr. Bruno ordered a Lexiscan stress test and echocardiogram patient was scheduled to get these done on April 26 and May 02, 2021. Patient states she also went to another facility/urgent care and was told her EKG was abnormal. Patient presents to the emergency department 04/22 night with increased chest discomfort. Patient is seen and examined in the emergency department. Patient states that she started to have chest pain yesterday around 1 PM. She was vaccuming and doing house work. Started to have central sharp 10/10 chest pain. Non radiating. Non exertional. Palpation and deep breathing makes it worse. Nothing relieves the pain, however, Tylenol helps make the pain slightly better. She had slight nausea this morning. Associated symptoms include shortness of breath. She states she had similar pain in May 2020, when she fell backwards, hit her head and between her shoulder blade. She denies history of [place]. She states that she's had a stress test before but that was years ago, she was told that everything was normal at that time. Current home cardiac medications include lisinopril 20 mg twice a day, hydralazine 100 mg 3 times a day, aspirin 81 mg daily, metoprolol succinate 25 mg nightly, amlodipine 5 mg twice a day, clonidine 0.3 mg patch changed every Thursday, she states that she's been not taking her statin for some time now because of the side effects. Patient was hypotensive 204/73 on arrival to emergency department, patient did not have any of her antihypertensives DIAGNOSTICS EKG reveals sinus rhythm, heart rate 67 to inversions in lead III, poor R wave progression. Chest xray no acute cardiopulmonary process. Troponin negative 3 04/24/21 Patient seen and examined at bedside, no acute distress. Echocardiogram revealed an EF of 55-60%, moderate pericardial effusion located near the left ventricle, mild mitral regurgitation, mild prosthetic regurgitation. Patient's blood pressure has improved from pressure 145/60, heart rate 66, afebrile, maintaining oxygen saturations 97% on room air. Telemetry reviewed patient in sinus mechanism heart rate 60-70s. PHYSICAL EXAMINATION CONSTITUTIONAL: No apparent distress. HEENT: Neck Supple. No JVD. CHEST EXAMINATION: Lungs are clear to auscultation. Chest wall tenderness is noted on palpation or with deep breathing. HEART EXAMINATION: Regular rate and rhythm. S1, S2 heard. Systolic murmur noted. No gallops or rub. ABDOMEN: Soft, nontender. Positive bowel sounds. EXTREMITIES: 2+ peripheral pulses, 2+ bilateral lower extremity edema and no calf tenderness. NEUROLOGIC EXAMINATION: Patient is awake, alert and oriented x3. ASSESSMENT Chest pain, atypical, acute coronary syndrome has been ruled out Moderate Pericardial Effusion Type 2 diabetes Hypertension Dyslipidemia, intolerant of statins due to side effects myalgias History of CVA Peripheral vascular disease Obesity BMI 52 PLAN An acute coronary event has been ruled out with no EKG evidence of ischemia and negative cardiac enzymes. Echocardiogram revealed a moderate pericardial effusion, patient's Lexiscan stress test was canceled Continue patient on colchicine 0.6 mg twice a day Continue amlodipine 5 mg twice a day, aspirin 81 mg nightly, clonidine patch, hydralazine 100 mg 3 times a day, lisinopril 20 mg twice a day, metoprolol succinate 25 mg nightly Patient had complaints of dizziness this afternoon, will keep patient on cardiac telemetry Hopefully discharge tomorrow Further recommendations based on clinical course On discharge patient will follow up with Dr. Bruno Nurse Practitioner note has been reviewed, I agree with a documented findings and plan of care. Patient was seen and examined. Objective - Vital Signs Vital signs: Vital Signs Temp 97.5 F L 04/24/21 07:00 Pulse 63 04/24/21 07:00 Resp 18 04/24/21 07:00 BP 170/76 04/24/21 07:00 Pulse Ox 97 04/24/21 07:00 Intake & Output 04/23/21 04/24/21 04/24/21 18:59 06:59 18:59 Intake Total 300 600 Balance 300 600 Weight 142.428 kg Intake: Oral 300 600 Other: Voiding Method Toilet Toilet Toilet # Voids 1 1 - Labs CBC & Chem 7: 04/23/21 00:25 04/22/21 22:52 Labs: Abnormal Lab Results - Last 24 Hours (Table) 04/23/21 04/23/21 04/24/21 Range/Units 17:13 21:26 06:06 POC Glucose (mg/dL) 112 H 107 H (75-99) mg/dL Cholesterol 280 H (0-200) mg/dL LDL Cholesterol, Calc 207.0 H (0.0-131.0) mg/dL 04/24/21 04/24/21 Range/Units 07:20 11:56 POC Glucose (mg/dL) 109 H 157 H (75-99) mg/dL Cholesterol (0-200) mg/dL LDL Cholesterol, Calc (0.0-131.0) mg/dL
--- NOTE | 2021-04-24 16:57 | P.PN ---
Subjective Patient came in with complaints of chest pain has been gaining going on for few days appears to be musculoskeletal reproducible. Patient was also complaining of some nausea with food. Patient had an EKG that was done in PCPs office which showed poor R-wave progression possible old anteroseptal NM because of which a patient was sent to the cardiology and patient is supposed to get stress test on April 26 although patient the continue to have severe sharp pain because of which patient came to ER. Patient denied any shortness of breath lightheadedness diaphoresis associated with that patient the head 8/10 severe pain presently 6/10 severe. Patient chest pain is clearly reproducible over the bony prominences appears to be costochondritis. EKG showed some nonspecific T-wave inversions in lead 3 and poor R-wave progression. Chest x-ray did not show any significant abnormality. Patient was evaluated cardiology the recommending an echocardiogram and a stress test and stress test is negative patient will be discharged. 04/24/2021 Patient is comparing of dizziness. Patient had an echocardiogram which showed moderate pleural effusions because of which patient was started on colchicine considering the patient has viral myocarditis. Patient although he medically stable except for the complaints of dizziness. Cardiology is recommending monitoring 1 more day. Stress test was discontinued as a her chest pain was believed to be secondary to pericarditis and effusion. Constitutional: Denied any fatigue denied any fever. Cardio vascular: Still has chest pain and lightheadedness Gastrointestinal denied any nausea vomiting Pulmonary: Denied any shortness of breath cough Neurologic denied any new focal deficits All inpatient medications were reviewed and appropriate changes in these medications as dictated in the interval history and assessment and plan. PHYSICAL EXAMINATION: GENERAL: The patient is alert and oriented x3, not in any acute distress. Well developed, well nourished. HEENT: Pupils are round and equally reacting to light. EOMI. No scleral icterus. No conjunctival pallor. Normocephalic, atraumatic. No pharyngeal erythema. No thyromegaly. CARDIOVASCULAR: S1 and S2 present. No murmurs, rubs, or gallops. Reproducible chest pain PULMONARY: Chest is clear to auscultation, no wheezing or crackles. ABDOMEN: Soft, nontender, nondistended, normoactive bowel sounds. No palpable organomegaly. MUSCULOSKELETAL: No joint swelling or deformity. EXTREMITIES: No cyanosis, clubbing, or pedal edema. NEUROLOGICAL: Gross neurological examination did not reveal any focal deficits. SKIN: No rashes. Assessment and plan -Chest pain : Secondary to pericarditis and pericardial effusion, patient is being continued on colchicine. -Moderate pericardial effusion, no hemodynamic instability -Type 2 diabetes mellitus 7 hypertension: Uncontrolled elevated continue with home medications depending on her blood pressure will titrate the blood pressure medications. -Dyslipidemia -CVA in the past -Peripheral vascular disease -Morbid obesity Objective - Vital Signs Vital signs: Vital Signs Temp 98.4 F 04/24/21 15:00 Pulse 72 04/24/21 15:00 Resp 18 04/24/21 15:00 BP 169/74 04/24/21 15:00 Pulse Ox 95 04/24/21 15:00 Intake & Output 04/23/21 04/24/21 04/24/21 18:59 06:59 18:59 Intake Total 300 600 Balance 300 600 Weight 142.428 kg Intake: Oral 300 600 Other: Voiding Method Toilet Toilet Toilet # Voids 1 1 2 - Labs CBC & Chem 7: 04/23/21 00:25 04/22/21 22:52 Labs: Abnormal Lab Results - Last 24 Hours (Table) 04/23/21 04/23/21 04/24/21 Range/Units 17:13 21:26 06:06 POC Glucose (mg/dL) 112 H 107 H (75-99) mg/dL Cholesterol 280 H (0-200) mg/dL LDL Cholesterol, Calc 207.0 H (0.0-131.0) mg/dL 04/24/21 04/24/21 Range/Units 07:20 11:56 POC Glucose (mg/dL) 109 H 157 H (75-99) mg/dL Cholesterol (0-200) mg/dL LDL Cholesterol, Calc (0.0-131.0) mg/dL
[2021-04-24] MEDS ORDERED: PROCHLORPERAZINE INJ 10 MG/2 ML VIAL IVP STA (17:21)
[2021-04-24 17:24] LABS: Glucose,Whole Blood 115 mg/dL (75-99)
[2021-04-24] MEDS: PRAVASTATIN SODIUM 80 MG TAB PO SCH (20:17)
[2021-04-24] MEDS: QUEtiapine 25 MG TAB PO SCH (20:17)
[2021-04-24] MEDS: METOPROLOL SUCCINATE (ER) 25 MG TAB.ER.24H PO SCH (20:17)
[2021-04-24] MEDS: ASPIRIN 81 MG PO SCH (20:17)
[2021-04-24 20:43] LABS: Glucose,Whole Blood 143 mg/dL (75-99)
[2021-04-25 07:46] LABS: Glucose,Whole Blood 110 mg/dL (75-99)
[2021-04-25 08:12] VITALS: BP 183/76; PULSE 76; RESP 19; TEMP 98.3
[2021-04-25] MEDS: ACETAMINOPHEN TAB 500 MG TAB PO SCH (08:13)
[2021-04-25] MEDS: amLODIPine 5 MG TAB PO SCH (08:15)
[2021-04-25] MEDS: CHOLECALCIFEROL 25 MCG (1000 IU) TABLET PO SCH (08:15)
[2021-04-25] MEDS: lisinopriL 20 MG TAB PO SCH (08:16)
[2021-04-25] MEDS: COLCHICINE 0.6 MG EACH PO SCH (08:16)
[2021-04-25] MEDS: hydrALAZINE HCL 50 MG TAB PO SCH (08:19)
[2021-04-25] MEDS: levETIRAcetam ORAL SOLN 500 MG/5 ML CUP PO SCH (08:19)
--- NOTE | 2021-04-25 11:48 | P.PN ---
Subjective This is a pleasant 66-year-old female past medical history significant for type 2 diabetes, hypertension, dyslipidemia, CVA, former nicotine dependence, peripheral vascular disease status post angioplasty and stenting of the left SFA, carotid disease status post right carotid endarterectomy and known to have occluded left internal carotid artery. She follows in the office with Dr. Bruno, she is a new patient and saw him on 03/29/2021. At that visit patient did have similiar chest discomfort that she states started after a [place] that she [place]. An EKG was performed in the office which was concerning and showed sinus rhythm with poor R wave progression probably old anteriorseptal myocardial infarction. Dr. Bruno ordered a Lexiscan stress test and echocardiogram patient was scheduled to get these done on April 26 and May 02, 2021. Patient states she also went to another facility/urgent care and was told her EKG was abnormal. Patient presents to the emergency department 04/22 night with increased chest discomfort. Patient is seen and examined in the emergency department. Patient states that she started to have chest pain yesterday around 1 PM. She was vaccuming and doing house work. Started to have central sharp 10/10 chest pain. Non radiating. Non exertional. Palpation and deep breathing makes it worse. Nothing relieves the pain, however, Tylenol helps make the pain slightly better. She had slight nausea this morning. Associated symptoms include shortness of breath. She states she had similar pain in May 2020, when she fell backwards, hit her head and between her shoulder blade. She denies history of [place]. She states that she's had a stress test before but that was years ago, she was told that everything was normal at that time. Current home cardiac medications include lisinopril 20 mg twice a day, hydralazine 100 mg 3 times a day, aspirin 81 mg daily, metoprolol succinate 25 mg nightly, amlodipine 5 mg twice a day, clonidine 0.3 mg patch changed every Thursday, she states that she's been not taking her statin for some time now because of the side effects. Patient was hypotensive 204/73 on arrival to emergency department, patient did not have any of her antihypertensives DIAGNOSTICS EKG reveals sinus rhythm, heart rate 67 to inversions in lead III, poor R wave progression. Chest xray no acute cardiopulmonary process. Troponin negative 3 04/24/21 Patient seen and examined at bedside, no acute distress. Echocardiogram revealed an EF of 55-60%, moderate pericardial effusion located near the left ventricle, mild mitral regurgitation, mild prosthetic regurgitation. Patient's blood pressure has improved from pressure 145/60, heart rate 66, afebrile, maintaining oxygen saturations 97% on room air. Telemetry reviewed patient in sinus mechanism heart rate 60-70s. 04/25/2021 Patient seen and examined at bedside, no acute distress. She did have some dizziness later yesterday. She states she is feeling much better, no complaints at this time. Telemetry reviewed patient in sinus mechanism, heart rate 60 to 80s. Blood pressure 183/76, heart rate 76, afebrile, maintaining oxygen satur ations 97% on room air PHYSICAL EXAMINATION CONSTITUTIONAL: No apparent distress. HEENT: Neck Supple. No JVD. CHEST EXAMINATION: Lungs are clear to auscultation. Chest wall tenderness is noted on palpation or with deep breathing. HEART EXAMINATION: Regular rate and rhythm. S1, S2 heard. Systolic murmur noted. No gallops or rub. ABDOMEN: Soft, nontender. Positive bowel sounds. EXTREMITIES: 2+ peripheral pulses, 2+ bilateral lower extremity edema and no calf tenderness. NEUROLOGIC EXAMINATION: Patient is awake, alert and oriented x3. ASSESSMENT Chest pain, atypical, acute coronary syndrome has been ruled out Moderate Pericardial Effusion Type 2 diabetes Hypertension Dyslipidemia, intolerant of statins due to side effects myalgias History of CVA Peripheral vascular disease Obesity BMI 52 PLAN An acute coronary event has been ruled out with no EKG evidence of ischemia and negative cardiac enzymes. Echocardiogram revealed a moderate pericardial effusion, patient's Lexiscan stress test was canceled Continue patient on colchicine 0.6 mg twice a day for 1 month. Increase metoprolol succinate to 50mg Continue amlodipine 5 mg twice a day, aspirin 81 mg nightly, clonidine patch, hydralazine 100 mg 3 times a day, lisinopril 20 mg twice a day From cardiology perspective, patient stable to be discharged home, follow-up with the office with Dr. Bruno. Patient has a follow-up appointment on 05/03/2021 Nurse Practitioner note has been reviewed, I agree with a documented findings and plan of care. Patient was seen and examined. Objective - Vital Signs Vital signs: Vital Signs Temp 98.3 F 04/25/21 07:00 Pulse 76 04/25/21 07:00 Resp 19 04/25/21 07:00 BP 183/76 04/25/21 07:00 Pulse Ox 97 04/25/21 07:00 Intake & Output 04/24/21 04/25/21 04/25/21 18:59 06:59 18:59 Intake Total 600 240 Balance 600 240 Intake: Oral 600 240 Other: Voiding Method Toilet Toilet # Voids 2 2 - Labs CBC & Chem 7: 04/23/21 00:25 04/22/21 22:52 Labs: Abnormal Lab Results - Last 24 Hours (Table) 04/24/21 04/24/21 04/24/21 Range/Units 11:56 17:23 20:41 POC Glucose (mg/dL) 157 H 115 H 143 H (75-99) mg/dL 04/25/21 Range/Units 07:44 POC Glucose (mg/dL) 110 H (75-99) mg/dL
[2021-04-25 11:56] LABS: Glucose,Whole Blood 113 mg/dL (75-99)
--- NOTE | 2021-04-25 16:05 | P.DS ---
Providers Date of admission: 04/24/21 14:50 Attending physician: Onel Michelle MD Consults: 04/23/21 00:39 Consult Physician Routine Consulting Provider: Ahmet Bruno Consult Reason/Comments: chest pain Do you want consulting provider notified?: Yes Primary care physician: Stated None Hospital Course: Patient came in with complaints of chest pain has been gaining going on for few days appears to be musculoskeletal reproducible. Patient was also complaining of some nausea with food. Patient had an EKG that was done in PCPs office which showed poor R-wave progression possible old anteroseptal [place] because of which a patient was sent to the cardiology and patient is supposed to get stress test on April 26 although patient the continue to have severe sharp pain because of which patient came to ER. Patient denied any shortness of breath lightheadedness diaphoresis associated with that patient the head 8/10 severe pain presently 6/10 severe. Patient chest pain is clearly reproducible over the bony prominences appears to be costochondritis. EKG showed some nonspecific T-wave inversions in lead 3 and poor R-wave progression. Chest x-ray did not show any significant abnormality. Patient was evaluated cardiology the recommending an echocardiogram and a stress test and stress test is negative patient will be discharged. 04/24/2021 Patient is comparing of dizziness. Patient had an echocardiogram which showed moderate pleural effusions because of which patient was started on colchicine considering the patient has viral pericarditis. Patient although he medically stable except for the complaints of dizziness. Cardiology is recommending monitoring 1 more day. Stress test was discontinued as a her chest pain was believed to be secondary to pericarditis and effusion. 04/25/2021 Patient the is clinically doing well still has some mild pain secondary to post chondritis patient has pericarditis with pericardial effusion patient is being discharged on colchicine patient is cleared from cardiology perspective. PHYSICAL EXAMINATION: GENERAL: The patient is alert and oriented x3, not in any acute distress. Well developed, well nourished. HEENT: Pupils are round and equally reacting to light. EOMI. No scleral icterus. No conjunctival pallor. Normocephalic, atraumatic. No pharyngeal erythema. No thyromegaly. CARDIOVASCULAR: S1 and S2 present. No murmurs, rubs, or gallops. Reproducible chest pain PULMONARY: Chest is clear to auscultation, no wheezing or crackles. ABDOMEN: Soft, nontender, nondistended, normoactive bowel sounds. No palpable organomegaly. MUSCULOSKELETAL: No joint swelling or deformity. EXTREMITIES: No cyanosis, clubbing, or pedal edema. NEUROLOGICAL: Gross neurological examination did not reveal any focal deficits. SKIN: No rashes. Assessment and plan -Chest pain : Secondary to pericarditis and pericardial effusion, patient is being continued on colchicine. Patient appears to have costochondritis as well -Moderate pericardial effusion, no hemodynamic instability -Type 2 diabetes mellitus 7 hypertension: Uncontrolled elevated continue with home medications depending on her blood pressure will titrate the blood pressure medications. -Dyslipidemia -CVA in the past -Peripheral vascular disease -Morbid obesity Patient Condition at Discharge: Fair Plan - Discharge Summary Discharge Rx Participant: No New Discharge Prescriptions: New Colchicine [Colcrys] 0.6 mg PO BID #60 each Metoprolol Succinate (ER) [Toprol XL] 50 mg PO HS #30 tab.er.24h Continue QUEtiapine [SEROquel] 25 mg PO HS carBAMazepine [carBAMazepine Susp] 100 mg PO BID levETIRAcetam [Levetiracetam] 750 mg PO BID cloNIDine 0.3 MG/24HR PATCH [Catapres-TTS] 1 patch TRANSDERM lisinopriL [Zestril] 20 mg PO BID Aspirin 81 mg PO HS Cholecalciferol (Vitamin D3) [Vitamin D3 (3000 Iu)] 225 mcg PO DAILY Acetaminophen Tab [Tylenol] 500 mg PO BID Pravastatin Sodium 80 mg PO HS hydrALAZINE HCL [Apresoline] 100 mg PO TID Ferrous Sulfate [Iron (65 MG Elemental)] 325 mg PO DAILY amLODIPine [Norvasc] 5 mg PO BID Discontinued Metoprolol Succinate (ER) [Toprol Xl] 25 mg PO HS Discharge Medication List QUEtiapine [SEROquel] 25 mg PO HS 11/11/16 [History] carBAMazepine [carBAMazepine Susp] 100 mg PO BID 12/18/16 [History] levETIRAcetam [Levetiracetam] 750 mg PO BID 02/10/17 [History] cloNIDine 0.3 MG/24HR PATCH [Catapres-TTS] 1 patch TRANSDERM TU 06/03/18 [His tory] lisinopriL [Zestril] 20 mg PO BID 06/03/18 [History] Acetaminophen Tab [Tylenol] 500 mg PO BID 04/23/21 [History] Aspirin 81 mg PO HS 04/23/21 [History] Cholecalciferol (Vitamin D3) [Vitamin D3 (3000 Iu)] 225 mcg PO DAILY 04/23/21 [History] Ferrous Sulfate [Iron (65 MG Elemental)] 325 mg PO DAILY 04/23/21 [History] Pravastatin Sodium 80 mg PO HS 04/23/21 [History] amLODIPine [Norvasc] 5 mg PO BID 04/23/21 [History] hydrALAZINE HCL [Apresoline] 100 mg PO TID 04/23/21 [History] Colchicine [Colcrys] 0.6 mg PO BID #60 each 04/25/21 [Rx] Metoprolol Succinate (ER) [Toprol XL] 50 mg PO HS #30 tab.er.24h 04/25/21 [Rx] Follow up Appointment(s)/Referral(s): Mechelle Johnson MD [STAFF PHYSICIAN] - 1 Week Ahmet Bruno MD [STAFF PHYSICIAN] - 05/02/21 7:30 am (May 02, 2021 @ 7:30 stress test. May 03, 2021 @ 1:[address] Bruno. ) Patient Instructions/Handouts: Chest Pain (ED) Discharge Disposition: HOME SELF-CARE
[2021-04-25] MEDS ORDERED: METOPROLOL SUCCINATE (ER) 50 MG TAB.ER.24H PO SCH (21:00)
== END 2021-04-25 15:08 | disposition home or self-care (01) | DRG 206 ==
LOC: EC 21:32 → 6NMEDSUR 04-23 00:39 → OBSVTOIN 04-24 14:50
PROVIDERS: ADMIT Internal Medicine; ATTEND Internal Medicine
DX: M94.0 Chondrocostal junction syndrome [Tietze] (principal); Z68.43 Body mass index [BMI] 50.0-59.9, adult; I31.3 Pericardial effusion (noninflammatory); J90 Pleural effusion, not elsewhere classified; Z20.822 Contact with and (suspected) exposure to COVID-19; E11.51 Type 2 diabetes mellitus with diabetic peripheral angiopathy without gangrene; E66.01 Morbid (severe) obesity due to excess calories; E78.5 Hyperlipidemia, unspecified; I10 Essential (primary) hypertension; I25.2 Old myocardial infarction; F41.9 Anxiety disorder, unspecified; F32.9 Major depressive disorder, single episode, unspecified; Z96.649 Presence of unspecified artificial hip joint; F03.90 Unspecified dementia, unspecified severity, without behavioral disturbance, psychotic disturbance, mood disturbance, and anxiety; J44.9 Chronic obstructive pulmonary disease, unspecified; Z90.710 Acquired absence of both cervix and uterus; Z87.891 Personal history of nicotine dependence; Z86.73 Personal history of transient ischemic attack (TIA), and cerebral infarction without residual deficits; Z98.62 Peripheral vascular angioplasty status; Z83.3 Family history of diabetes mellitus; Z82.49 Family history of ischemic heart disease and other diseases of the circulatory system; Z80.49 Family history of malignant neoplasm of other genital organs; Z79.899 Other long term (current) drug therapy; Z79.82 Long term (current) use of aspirin
CPT/HCPCS: 36415; 71046; 80053; 80061; 83735; 84484; 85025; 85610; 85652; 85730; 87635; 93005; 93306; 99285

== ENCOUNTER 2021-06-11 16:55 | Emergency (ER) | payer MEDICARE ==
[2021-06-11 17:16] VITALS: BP 215/78; PULSE 70; RESP 20; TEMP 98.3
[2021-06-11] MEDS ORDERED: ASPIRIN 81 MG PO STA (18:41)
[2021-06-11] MEDS ORDERED: hydrALAZINE HCL 20 MG/ML 1 ML VIAL IVP STA ×2 (18:48→21:11)
[2021-06-11 19:21] LABS: Basophils # (A) 0.1 k/uL (0-0.2); Basophils % (A) 1 %; Eosinophils # (A) 0.3 k/uL (0-0.7); Eosinophils % (A) 3 %; HCT 39.9 % (34.0-46.0); Lymphocytes # (A) 2.2 k/uL (1.0-4.8); Lymphocytes % (A) 28 %; MCH 31.6 pg (25.0-35.0); MCHC 32.5 g/dL (31.0-37.0); MCV 97.3 fL (80.0-100.0); Mean Platelet Volume 7.6; Monocytes # (A) 0.4 k/uL (0-1.0); Monocytes % (A) 6 %; Neutrophils # (A) 4.6 k/uL (1.3-7.7); Neutrophils % (A) 60 %; Platelet Count 269 k/uL (150-450); RDW 13.8 % (11.5-15.5); WBC 7.7 k/uL (3.8-10.6)
[2021-06-11 19:31] LABS: INR 0.9 (<1.2); Partial Thromboplastin Time 22.8 sec (22.0-30.0); Prothrombin Time 9.7 sec (9.0-12.0)
[2021-06-11 19:50] LABS: Albumin 4.2 g/dL (3.5-5.0); Calcium 9.7 mg/dL (8.4-10.2); Magnesium 1.9 mg/dL (1.6-2.3); Potassium 4.4 mmol/L (3.5-5.1); Total Bilirubin 0.2 mg/dL (0.2-1.3); Total Protein 7.1 g/dL (6.3-8.2)
--- NOTE | 2021-06-11 20:56 | XR ---
EXAMINATION TYPE: XR chest 2V DATE OF EXAM: 06/11/2021 COMPARISON: 04/22/2021 HISTORY: Chest pain TECHNIQUE: FINDINGS: There is no heart failure nor confluent pneumonic infiltrate. There are chest leads. Costop hrenic angles are clear. The bony thorax is intact. IMPRESSION: No active cardiopulmonary disease. No adverse change. Borderline cardiomegaly noted.
--- NOTE | 2021-06-11 21:42 | ED ---
General Adult HPI - General Chief complaint: Weakness Stated complaint: Numbness in Hands & Face Time Seen by Provider: 06/11/21 18:08 Source: patient, RN notes reviewed, old records reviewed Mode of arrival: wheelchair Limitations: no limitations - History of Present Illness Initial comments: I evaluated the patient when she was placed in a room. Patient is a 66-year-old past medical history remarkable for obesity, asthma, COPD, prior TIA, hypertens ion, chronic lower extremity edema, chronic right upper extremity and right cheek numbness who presents emergency Department complaining of acute onset of lower extremity "oozing." She states she presents emergency Department after being instructed by her PCP to be evaluated for possible venous stasis dermatitis wheezing. She states she believes that she has had been having worsening orthopnea and sleeps sitting up now constantly. She also states that she has not had any worsening proximal nocturnal dyspnea or exertional dyspnea. Denies any lower extremity worsening edema. Everything she has his chronic except for the new onset wheezing. She presents over concern for the losing. She does not recall receiving a cardiac workup for heart failure in the past. She denies any chest pain, shortness breath, abdominal pain, nausea, vomiting. She is no other acute complaints at this time. Patient presents for her leg skin changes, that are chronic. - Related Data Home Medications Medication Instructions Recorded Confirmed QUEtiapine [SEROquel] 25 mg PO HS 11/11/16 06/11/21 carBAMazepine [carBAMazepine Susp] 100 mg PO BID 12/18/16 06/11/21 levETIRAcetam [Levetiracetam] 750 mg PO BID 02/10/17 06/11/21 cloNIDine 0.3 MG/24HR PATCH 1 patch TRANSDERM TU 06/03/18 06/11/21 [Catapres-TTS] lisinopriL [Zestril] 20 mg PO BID 06/03/18 06/11/21 Acetaminophen Tab [Tylenol] 500 mg PO BID 04/23/21 06/11/21 Aspirin 81 mg PO HS 04/23/21 06/11/21 Cholecalciferol (Vitamin D3) 225 mcg PO DAILY 04/23/21 06/11/21 [Vitamin D3 (3000 Iu)] Ferrous Sulfate [Iron (65 MG 325 mg PO DAILY 04/23/21 06/11/21 Elemental)] Pravastatin Sodium 80 mg PO HS 04/23/21 06/11/21 amLODIPine [Norvasc] 5 mg PO BID 04/23/21 06/11/21 hydrALAZINE HCL [Apresoline] 100 mg PO TID 04/23/21 06/11/21 Previous Rx's Medication Instructions Recorded Metoprolol Succinate (ER) [Toprol 50 mg PO HS #30 tab.er.24h 04/25/21 XL] Allergies Allergy/AdvReac Type Severity Reaction Status Date / Time cefdinir [From Omnicef] Allergy Rash/Hives Verified 06/11/21 20:53 colchicine Allergy Rash/Hives/ Verified 06/11/21 20:53 Nausea ezetimibe [From Zetia] Allergy Rash/Hives Verified 06/11/21 20:53 Gadolinium-Containing Allergy Itching Verified 06/11/21 20:53 Contrast Medi hydrocodone Allergy Rash/Hives Verified 06/11/21 20:53 ibuprofen Allergy Itching Verified 06/11/21 20:53 Iodinated Contrast Media Allergy Rash/Hives, Verified 06/11/21 20:53 [Iodinated Contrast Media - itching,swe Oral and] lling loracarbef [From Lorabid] Allergy Rash/Hives Verified 06/11/21 20:53 morphine Allergy Rash/Hives Verified 06/11/21 20:53 Penicillins Allergy Rash/Hives Verified 06/11/21 20:53 sulfamethoxazole Allergy Rash/Hives Verified 06/11/21 20:53 [From Septra] topiramate Allergy Unknown Verified 06/11/21 20:53 trimethoprim [From Septra] Allergy Rash/Hives Verified 06/11/21 20:53 albuterol AdvReac DRY THROAT Verified 06/11/21 20:53 atorvastatin [From Lipitor] AdvReac joint pain Verified 06/11/21 20:53 ipratropium AdvReac dry throat Verified 06/11/21 20:53 lovastatin AdvReac joint pain Verified 06/11/21 20:53 tiotropium AdvReac dry throat Verified 06/11/21 20:53 [From Spiriva with HandiHaler] tramadol AdvReac seizures Verified 06/11/21 20:53 mefix tape Allergy Rash/Hives Uncoded 06/11/21 20:53 Review of Systems ROS Statement: Those systems with pertinent positive or pertinent negative responses have been documented in the HPI. Review of Systems: CONST: Denies fever EYES: Denies blurry vision ENT: Denies nasal congestion C/V: Denies Chest pain RESP: Denies shortness of breath GI: Denies abdominal pain : Denies dysuria SKIN: Endorses lower extremity sores MSK: Denies joint pain. NEURO: Denies headache ROS Other: All systems not noted in ROS Statement are negative. Past Medical History Past Medical History: Asthma, COPD, CVA/TIA, Dementia, GERD/Reflux, Hyp erlipidemia, Hypertension Additional Past Medical History / Comment(s): fell & hit her head 04/2016 resulting in hematoma & subsequent stroke x2 with seizure, was hospitalized at [facility] & in rehab after at [facility] after, using cane currently & also still has trouble w/pills & food getting stuck @times, takes no meds for diabetes, rheumatic fever, heart murmur, deaf r ear, pvd, carotid stenosis, dvt r leg, egd, colonoscopy with 2 polyps, short term memory impairment History of Any Multi-Drug Resistant Organisms: None Reported Past Surgical History: Adenoidectomy, Bariatric Surgery, Cholecystectomy, Heart Catheterization With Stent, Hysterectomy, Orthopedic Surgery, Tonsillectomy Additional Past Surgical History / Comment(s): mena. hip replacement, cervical fusion, lap band surgery , bilateral carpal tunnel, panniculectomyquit , r iliac stent, tubes in brain after fall and hematoma 05/10, rt carotid endardectomy,rt leg angioplasty balloon, colonoscopies, flexible sigmoidoscopy Past Anesthesia/Blood Transfusion Reactions: No Reported Reaction Date of Last Stent Placement:: no know by pt Past Psychological History: Anxiety, Depression Smoking Status: Former smoker Past Alcohol Use History: None Reported Past Drug Use History: None Reported - Past Family History Sister(s) Family Medical History: Cancer, Coronary Artery Disease (CAD), Hyperlipidemia, Hypertension Additional Family Medical History / Comment(s): aneurysm, heart stents; 4 living sisters, uterine cancer Brother(s) Family Medical History: Hypertension, Myocardial Infarction ([place]) Additional Family Medical History / Comment(s): stents in legs, heart disease, carotid disease, triple bypass; 2 brother : heart disease; 1 brother living Mother Family Medical History: Coronary Artery Disease (CAD), Diabetes Mellitus Additional Family Medical History / Comment(s): Father Family Medical History: Coronary Artery Disease (CAD) Additional Family Medical History / Comment(s): General Exam - General Exam Comments Initial Comments: General: Appears in no acute distress. HEAD: Normal with no signs of head trauma. EYES: PERRLA, EOMI, conjunctiva normal, no discharge. ENT: Hearing grossly intact, normal oropharynx. RESPIRATORY: Clear breath sounds bilaterally. No wheezes, rales, or rhonchi. C/V: Regular rate and rhythm. S1 and S2 auscultated, peripheral pulses 2+ and intact throughout. Patient does have diffuse edema over bilateral lower extremities with chronic changes. ABD: Abd is soft, nontender, nondistended EXT: Normal range of motion, no obvious deformity SKIN: Chronic venous stasis dermatitis over bilateral lower extremities with mild clear discharge from the left lower extremity anteriorly and no obvious signs of infection. No erythema. No fluctuance. NEURO: Alert and oriented 4. No focal sensory strength deficits. Intubate her baseline with a cane. Limitations: no limitations Course Vital Signs 06/11/21 17:07 Temperature 98.3 F Pulse Rate 70 Respiratory 20 Rate Blood Pressure 215/78 O2 Sat by Pulse 97 Oximetry Medical Decision Making - Medical Decision Making Based on the patient's presentation and physical exam, I'm concerned for possible undiagnosed heart failure and the patient the cause of her diffuse pitting edema over bilateral lower extremities which appears chronic. She does endorse orthopnea which may or may not be acute at this time. She otherwise has no acute findings on exam. Her venous stasis dermatitis appears uninfected at this time. She was found to be hypertensive with systolics over 200, and she states that she typically has uncontrolled hypertension. She did take her blood pressure medications today. I did advise that we administer IV hydralazine in addition to the cardiac workup and she was in agreement this plan. EKG and chest x-ray will also be obtained. She'll be connected to continuous cardiac monitoring while she is here in the department. EKG revealed no acute ischemic changes. Chest x-ray revealed no acute cardiopulmonary process. Laboratory studies were remarkable for a negative troponin. Remainder of her labs are unremarkable including a negative BNP, as the value is 448. HEENT positive BNP for her age range would be 900 her over. On reevaluation, patient remains hypertensive. I did discuss with her the results for negative workup and advised that we attempt to contact obtain an control her hypertension at this time. As for her venous stasis dermatitis oozing, we will dress the wound with Kerlix and Michael bandage and have her follow up with wound care clinic. There is no signs of acute infection at this time to justify admission for antibiotics. She was in agreement with that plan, however declined antihypertensives at this time. She states she does not want them and would like to go home. The patient was apprised of the potential risks of leaving the hospital AGAINST MEDICAL ADVICE, including serious complications, permanent disability, and . At the time of my interview the patient, the patient was alert, oriented, and capable. Patient signed AMA form, which was witnessed and signed by nursing staff, and placed in patient's chart. I urged the patient to return to the hospital as soon as possible to complete evaluation and treatment. She was therefore discharged home AGAINST MEDICAL ADVICE. She was provided with contact information for follow-up from care clinic in the next few days. I advised her to return to the emergency department if she has any worsening symptoms. - Lab Data Result diagrams: 06/11/21 19:09 06/11/21 19:09 Lab Results 06/11/21 06/11/21 06/11/21 Range/Units 19:09 19:09 19:09 WBC 7.7 (3.8-10.6) k/uL RBC 4.10 (3.80-5.40) m/uL Hgb 13.0 (11.4-16.0) gm/dL Hct 39.9 (34.0-46.0) % MCV 97.3 (80.0-100.0) fL MCH 31.6 (25.0-35.0) pg MCHC 32.5 (31.0-37.0) g/dL RDW 13.8 (11.5-15.5) % Plt Count 269 (150-450) k/uL MPV 7.6 Neutrophils % 60 % Lymphocytes % 28 % Monocytes % 6 % Eosinophils % 3 % Basophils % 1 % Neutrophils # 4.6 (1.3-7.7) k/uL Lymphocytes # 2.2 (1.0-4.8) k/uL Monocytes # 0.4 (0-1.0) k/uL Eosinophils # 0.3 (0-0.7) k/uL Basophils # 0.1 (0-0.2) k/uL PT 9.7 (9.0-12.0) sec INR 0.9 (<1.2) APTT 22.8 (22.0-30.0) sec Sodium 141 (137-145) mmol/L Potassium 4.4 (3.5-5.1) mmol/L Chloride 106 (98-107) mmol/L Carbon Dioxide 26 (22-30) mmol/L Anion Gap 9 mmol/L BUN 23 H (7-17) mg/dL Creatinine 0.88 (0.52-1.04) mg/dL Est GFR (CKD-EPI)AfAm 80 (>60 ml/min/1.73 sqM) Est GFR (CKD-EPI)NonAf 69 (>60 ml/min/1.73 sqM) Glucose 119 H (74-99) mg/dL Calcium 9.7 (8.4-10.2) mg/dL Magnesium 1.9 (1.6-2.3) mg/dL Total Bilirubin 0.2 (0.2-1.3) mg/dL AST 21 (14-36) U/L ALT 13 (4-34) U/L Alkaline Phosphatase 98 (38-126) U/L Troponin I (0.000-0.034) ng/mL NT-Pro-B Natriuret Pep pg/mL Total Protein 7.1 (6.3-8.2) g/dL Albumin 4.2 (3.5-5.0) g/dL 06/11/21 06/11/21 Range/Units 19:09 19:09 WBC (3.8-10.6) k/uL RBC (3.80-5.40) m/uL Hgb (11.4-16.0) gm/dL Hct (34.0-46.0) % MCV (80.0-100.0) fL MCH (25.0-35.0) pg MCHC (31.0-37.0) g/dL RDW (11.5-15.5) % Plt Count (150-450) k/uL MPV Neutrophils % % Lymphocytes % % Monocytes % % Eosinophils % % Basophils % % Neutrophils # (1.3-7.7) k/uL Lymphocytes # (1.0-4.8) k/uL Monocytes # (0-1.0) k/uL Eosinophils # (0-0.7) k/uL Basophils # (0-0.2) k/uL PT (9.0-12.0) sec INR (<1.2) APTT (22.0-30.0) sec Sodium (137-145) mmol/L Potassium (3.5-5.1) mmol/L Chloride (98-107) mmol/L Carbon Dioxide (22-30) mmol/L Anion Gap mmol/L BUN (7-17) mg/dL Creatinine (0.52-1.04) mg/dL Est GFR (CKD-EPI)AfAm (>60 ml/min/1.73 sqM) Est GFR (CKD-EPI)NonAf (>60 ml/min/1.73 sqM) Glucose (74-99) mg/dL Calcium (8.4-10.2) mg/dL Magnesium (1.6-2.3) mg/dL Total Bilirubin (0.2-1.3) mg/dL AST (14-36) U/L ALT (4-34) U/L Alkaline Phosphatase (38-126) U/L Troponin I <0.012 (0.000-0.034) ng/mL NT-Pro-B Natriuret Pep 448 pg/mL Total Protein (6.3-8.2) g/dL Albumin (3.5-5.0) g/dL - EKG Data -: EKG Interpreted by Me EKG Comments: 12-lead Electrocardiogram Interpretation Note EKG was reviewed and interpreted by myself. 12-lead ECG performed at 1810 is interpreted by me as revealing normal sinus rhythm at a rate of 76 beats per mi nute. [place] is normal. [place] interval is 170 ms, QRS duration 72 ms, QTc is 434 ms.. There were no ST or T wave abnormalities to suggest myocardial ischemia or injury. R wave progression across the precordium was satisfactory. By my interpretation this EKG is non-diagnostic for acute ischemia. Disposition Clinical Impression: Hypertension, Venous stasis dermatitis, Obesity Disposition: Left Against Medical Advice Condition: Stable Instructions (If sedation given, give patient instructions): Stasis Dermatitis (ED) Is patient prescribed a controlled substance at d/c from ED?: No Referrals: Nonstaff,Physician [Primary Care Provider] - 1-2 days [facility] [NON-STAFF] - 1-2 days
== END 2021-06-11 22:12 | disposition left against medical advice (07) ==
LOC: EC 16:55
DX: I10 Essential (primary) hypertension (principal); I87.2 Venous insufficiency (chronic) (peripheral); E66.9 Obesity, unspecified; E78.5 Hyperlipidemia, unspecified; E11.9 Type 2 diabetes mellitus without complications; J44.9 Chronic obstructive pulmonary disease, unspecified; F32.9 Major depressive disorder, single episode, unspecified; F03.90 Unspecified dementia, unspecified severity, without behavioral disturbance, psychotic disturbance, mood disturbance, and anxiety; F41.9 Anxiety disorder, unspecified; K21.9 Gastro-esophageal reflux disease without esophagitis; Z86.718 Personal history of other venous thrombosis and embolism; Z86.73 Personal history of transient ischemic attack (TIA), and cerebral infarction without residual deficits; Z87.891 Personal history of nicotine dependence; Z79.82 Long term (current) use of aspirin; Z79.899 Other long term (current) drug therapy; Z88.0 Allergy status to penicillin; Z88.1 Allergy status to other antibiotic agents; Z88.2 Allergy status to sulfonamides; Z88.5 Allergy status to narcotic agent; Z88.8 Allergy status to other drugs, medicaments and biological substances; Z90.49 Acquired absence of other specified parts of digestive tract; Z68.43 Body mass index [BMI] 50.0-59.9, adult
CPT/HCPCS: 36415; 71046; 80053; 83735; 83880; 84484; 85025; 85610; 85730; 93005; 96374; 99284

== ENCOUNTER 2021-10-15 00:56 | Emergency (ER) | payer MEDICARE ==
[2021-10-15 01:03] VITALS: TEMP 98.4
--- NOTE | 2021-10-15 02:09 | ED ---
URI HPI - General Chief Complaint: Upper Respiratory Infection Stated Complaint: SOB Time Seen by Provider: 10/15/21 01:18 Source: patient Mode of arrival: wheelchair Limitations: no limitations - History of Present Illness Initial Comments: This patient is a 66-year-old woman who presents with complaints of having congestion, drainage, cough, productive of sputum. She states the symptoms have been going on proximally 3-4 days. As she was starting to feel worse rather than better she felt she should be evaluated here. MD Complaint: cough, nasal congestion Onset/Timin -: days(s) Severity: moderate Quality: dull Consistency: constant Improves With: nothing Worsens With: nothing Associated Symptoms: rhinorrhea, nasal congestion, cough Treatments Prior to Arrival: none - Related Data Home Medications Medication Instructions Recorded Confirmed QUEtiapine [SEROquel] 25 mg PO HS 11/11/16 06/11/21 carBAMazepine [carBAMazepine Susp] 100 mg PO BID 12/18/16 06/11/21 levETIRAcetam [Levetiracetam] 750 mg PO BID 02/10/17 06/11/21 cloNIDine 0.3 MG/24HR PATCH 1 patch TRANSDERM TU 06/03/18 06/11/21 [Catapres-TTS] lisinopriL [Zestril] 20 mg PO BID 06/03/18 06/11/21 Acetaminophen Tab [Tylenol] 500 mg PO BID 04/23/21 06/11/21 Aspirin 81 mg PO HS 04/23/21 06/11/21 Cholecalciferol (Vitamin D3) 225 mcg PO DAILY 04/23/21 06/11/21 [Vitamin D3 (3000 Iu)] Ferrous Sulfate [Iron (65 MG 325 mg PO DAILY 04/23/21 06/11/21 Elemental)] Pravastatin Sodium 80 mg PO HS 04/23/21 06/11/21 amLODIPine [Norvasc] 5 mg PO BID 04/23/21 06/11/21 hydrALAZINE HCL [Apresoline] 100 mg PO TID 04/23/21 06/11/21 Previous Rx's Medication Instructions Recorded Metoprolol Succinate (ER) [Toprol 50 mg PO HS #30 tab.er.24h 04/25/21 XL] Allergies Allergy/AdvReac Type Severity Reaction Status Date / Time cefdinir [From Omnicef] Allergy Rash/Hives Verified 10/15/21 01:00 colchicine Allergy Rash/Hives/ Verified 10/15/21 01:00 Nausea ezetimibe [From Zetia] Allergy Rash/Hives Verified 10/15/21 01:00 Gadolinium-Containing Allergy Itching Verified 10/15/21 01:00 Contrast Medi hydrocodone Allergy Rash/Hives Verified 10/15/21 01:00 ibuprofen Allergy Itching Verified 10/15/21 01:00 Iodinated Contrast Media Allergy Rash/Hives, Verified 10/15/21 01:00 [Iodinated Contrast Media - itching,swe Oral and] lling loracarbef [From Lorabid] Allergy Rash/Hives Verified 10/15/21 01:00 morphine Allergy Rash/Hives Verified 10/15/21 01:00 Penicillins Allergy Rash/Hives Verified 10/15/21 01:00 sulfamethoxazole Allergy Rash/Hives Verified 10/15/21 01:00 [From Septra] topiramate Allergy Unknown Verified 10/15/21 01:00 trimethoprim [From Septra] Allergy Rash/Hives Verified 10/15/21 01:00 albuterol AdvReac DRY THROAT Verified 10/15/21 01:00 atorvastatin [From Lipitor] AdvReac joint pain Verified 10/15/21 01:00 ipratropium AdvReac dry throat Verified 10/15/21 01:00 lovastatin AdvReac joint pain Verified 10/15/21 01:00 tiotropium AdvReac dry throat Verified 10/15/21 01:00 [From Spiriva with HandiHaler] tramadol AdvReac seizures Verified 10/15/21 01:00 mefix tape Allergy Rash/Hives Uncoded 10/15/21 01:00 Review of Systems ROS Statement: Those systems with pertinent positive or pertinent negative responses have been documented in the HPI. ROS Other: All systems not noted in ROS Statement are negative. Constitutional: Denies: fever, chills ENT: Reports: congestion. Denies: ear pain, throat pain Respiratory: Reports: cough. Denies: dyspnea, wheezes, hemoptysis Cardiovascular: Reports: edema (Chronic bilateral). Denies: chest pain, palpitations, syncope Gastrointestinal: Denies: abdominal pain, vomiting, diarrhea Genitourinary: Denies: dysuria, hematuria Musculoskeletal: Denies: back pain Skin: Denies: rash Past Medical History Past Medical History: Asthma, COPD, CVA/TIA, Dementia, GERD/Reflux, Hyperlipidemia, Hypertension Additional Past Medical History / Comment(s): fell & hit her head 04/2016 resulting in hematoma & subsequent stroke x2 with seizure, was hospitalized at [facility] & in rehab after at [facility] after, using cane currently & also still has trouble w/pills & food getting stuck @times, takes no meds for diabetes, rheumatic fever, heart murmur, deaf r ear, pvd, carotid stenosis, dvt r leg, egd, colonoscopy with 2 polyps, short term memory impairment History of Any Multi-Drug Resistant Organisms: None Reported Past Surgical History: Adenoidectomy, Bariatric Surgery, Cholecystectomy, Heart Catheterization With Stent, Hysterectomy, Orthopedic Surgery, Tonsillectomy Additional Past Surgical History / Comment(s): mena. hip replacement, cervical fusion, lap band surgery , bilateral carpal tunnel, panniculectomyquit , r iliac stent, tubes in brain after fall and hematoma 05/10, rt carotid endardectomy,rt leg angioplasty balloon, colonoscopies, flexible sigmoidoscopy Past Anesthesia/Blood Transfusion Reactions: No Reported Reaction Date of Last Stent Placement:: no know by pt Past Psychological History: Anxiety, Depression Smoking Status: Former smoker Past Alcohol Use History: None Reported Past Drug Use History: None Reported - Past Family History Sister(s) Family Medical History: Cancer, Coronary Artery Disease (CAD), Hyperlipidemia, Hypertension Additional Family Medical History / Comment(s): aneurysm, heart stents; 4 living sisters, uterine cancer Brother(s) Family Medical History: Hypertension, Myocardial Infarction ([place]) Additional Family Medical History / Comment(s): stents in legs, heart disease, carotid disease, triple bypass; 2 brother : heart disease; 1 brother living Mother Family Medical History: Coronary Artery Disease (CAD), Diabetes Mellitus Additional Family Medical History / Comment(s): Father Family Medical History: Coronary Artery Disease (CAD) Additional Family Medical History / Comment(s): General Exam Limitations: no limitations General appearance: alert, in no apparent distress Head exam: Present: atraumatic, normocephalic Eye exam: Present: normal appearance. Absent: scleral icterus, conjunctival injection ENT exam: Present: normal oropharynx Neck exam: Present: normal inspection Respiratory exam: Present: wheezes. Absent: respiratory distress, rales, rhonchi Cardiovascular Exam: Present: regular rate, normal rhythm, normal heart sounds. Absent: systolic murmur, diastolic murmur, rubs, gallop GI/Abdominal exam: Present: soft. Absent: distended, tenderness, guarding, rebound, rigid Extremities exam: Present: normal capillary refill, pedal edema, other (Chronic stasis changes). Absent: calf tenderness Neurological exam: Present: alert Skin exam: Present: warm, dry, intact, normal color. Absent: rash Course Vital Signs 10/15/21 10/15/21 01:00 05:17 Temperature 98.4 F Pulse Rate 83 84 Respiratory 20 18 Rate Blood Pressure 195/76 156/76 O2 Sat by Pulse 98 96 Oximetry Medical Decision Making - Medical Decision Making Patient is 66-year-old woman presenting with history and physical exam consistent with acute bronchitis. The patient did have COVID-19 workup, with negative rapid PCR area she does have elevated d-dimer, but states she cannot take the contrast and does not want to be admitted for VQ scan. She states she will be going home. The patient was further declining any of the medications we use for bronchitis treatment. She did accept for the nebulized treatments here but states that she will not take that at home as it causes her to have dry mouth. Patient refused steroids as she states her doctor told her that it would give her high blood pressure. Discussed risks and benefits and at this point patient decided she was going to leave AGAINST MEDICAL ADVICE. - Lab Data Result diagrams: 10/15/21 03:40 10/15/21 03:40 Lab Results 10/15/21 10/15/21 10/15/21 Range/Units 02:02 03:40 03:40 WBC 11.5 H (3.8-10.6) k/uL RBC 3.49 L (3.80-5.40) m/uL Hgb 10.8 L (11.4-16.0) gm/dL Hct 33.6 L (34.0-46.0) % MCV 96.1 (80.0-100.0) fL MCH 31.0 (25.0-35.0) pg MCHC 32.2 (31.0-37.0) g/dL RDW 13.3 (11.5-15.5) % Plt Count 343 (150-450) k/uL MPV 7.8 Neutrophils % 64 % Lymphocytes % 23 % Monocytes % 6 % Eosinophils % 5 % Basophils % 1 % Neutrophils # 7.4 (1.3-7.7) k/uL Lymphocytes # 2.7 (1.0-4.8) k/uL Monocytes # 0.6 (0-1.0) k/uL Eosinophils # 0.6 (0-0.7) k/uL Basophils # 0.1 (0-0.2) k/uL D-Dimer 2.14 H (<0.60) mg/L FEU Sodium (137-145) mmol/L Potassium (3.5-5.1) mmol/L Chloride (98-107) mmol/L Carbon Dioxide (22-30) mmol/L Anion Gap mmol/L BUN (7-17) mg/dL Creatinine (0.52-1.04) mg/dL Est GFR (CKD-EPI)AfAm (>60 ml/min/1.73 sqM) Est GFR (CKD-EPI)NonAf (>60 ml/min/1.73 sqM) Glucose (74-99) mg/dL Calcium (8.4-10.2) mg/dL Total Bilirubin (0.2-1.3) mg/dL AST (14-36) U/L ALT (4-34) U/L Alkaline Phosphatase (38-126) U/L Troponin I (0.000-0.034) ng/mL NT-Pro-B Natriuret Pep pg/mL Total Protein (6.3-8.2) g/dL Albumin (3.5-5.0) g/dL Influenza Type A (PCR) Not Detected (Not Detectd) Influenza Type B (PCR) Not Detected (Not Detectd) RSV (PCR) Not Detected (Not Detectd) SARS-CoV-2 (PCR) Not Detected (Not Detectd) 10/15/21 10/15/21 10/15/21 Range/Units 03:40 03:40 03:40 WBC (3.8-10.6) k/uL RBC (3.80-5.40) m/uL Hgb (11.4-16.0) gm/dL Hct (34.0-46.0) % MCV (80.0-100.0) fL MCH (25.0-35.0) pg MCHC (31.0-37.0) g/dL RDW (11.5-15.5) % Plt Count (150-450) k/uL MPV Neutrophils % % Lymphocytes % % Monocytes % % Eosinophils % % Basophils % % Neutrophils # (1.3-7.7) k/uL Lymphocytes # (1.0-4.8) k/uL Monocytes # (0-1.0) k/uL Eosinophils # (0-0.7) k/uL Basophils # (0-0.2) k/uL D-Dimer (<0.60) mg/L FEU Sodium 141 (137-145) mmol/L Potassium 4.2 (3.5-5.1) mmol/L Chloride 106 (98-107) mmol/L Carbon Dioxide 25 (22-30) mmol/L Anion Gap 10 mmol/L BUN 29 H (7-17) mg/dL Creatinine 1.01 (0.52-1.04) mg/dL Est GFR (CKD-EPI)AfAm 67 (>60 ml/min/1.73 sqM) Est GFR (CKD-EPI)NonAf 58 (>60 ml/min/1.73 sqM) Glucose 129 H (74-99) mg/dL Calcium 8.9 (8.4-10.2) mg/dL Total Bilirubin 0.2 (0.2-1.3) mg/dL AST 41 H (14-36) U/L ALT 36 H (4-34) U/L Alkaline Phosphatase 93 (38-126) U/L Troponin I <0.012 (0.000-0.034) ng/mL NT-Pro-B Natriuret Pep 893 pg/mL Total Protein 6.7 (6.3-8.2) g/dL Albumin 3.7 (3.5-5.0) g/dL Influenza Type A (PCR) (Not Detectd) Influenza Type B (PCR) (Not Detectd) RSV (PCR) (Not Detectd) SARS-CoV-2 (PCR) (Not Detectd) Disposition Clinical Impression: Bronchitis Disposition: Left Against Medical Advice Condition: Undetermined Instructions (If sedation given, give patient instructions): Acute Bronchitis (ED) Is patient prescribed a controlled substance at d/c from ED?: No Referrals: Nonstaff,Physician [Primary Care Provider] - 1-2 days
--- NOTE | 2021-10-15 02:44 | XR ---
EXAMINATION TYPE: XR chest 2V DATE OF EXAM: 10/15/2021 COMPARISON: 06/11/2021 HISTORY: Cough TECHNIQUE: 2 views FINDINGS: Heart is normal. The lungs are clear of consolidation. There is some coarsening of the inte rstitial markings. There is no pleural effusion. Bony thorax is intact. IMPRESSION: There is slight coarsening of the lung markings without a significant change compared to old exam. No heart failure.
[2021-10-15 03:45] LABS: Basophils # (A) 0.1 k/uL (0-0.2); Basophils % (A) 1 %; Eosinophils # (A) 0.6 k/uL (0-0.7); Eosinophils % (A) 5 %; HCT 33.6 % (34.0-46.0); HGB 10.8 gm/dL (11.4-16.0); Lymphocytes # (A) 2.7 k/uL (1.0-4.8); Lymphocytes % (A) 23 %; MCHC 32.2 g/dL (31.0-37.0); MCV 96.1 fL (80.0-100.0); Mean Platelet Volume 7.8; Monocytes # (A) 0.6 k/uL (0-1.0); Monocytes % (A) 6 %; Neutrophils # (A) 7.4 k/uL (1.3-7.7); Neutrophils % (A) 64 %; Platelet Count 343 k/uL (150-450); RBC 3.49 m/uL (3.80-5.40); RDW 13.3 % (11.5-15.5); WBC 11.5 k/uL (3.8-10.6)
[2021-10-15 03:54] LABS: Albumin 3.7 g/dL (3.5-5.0); Calcium 8.9 mg/dL (8.4-10.2); Potassium 4.2 mmol/L (3.5-5.1); Total Bilirubin 0.2 mg/dL (0.2-1.3); Total Protein 6.7 g/dL (6.3-8.2)
[2021-10-15] MEDS ORDERED: ALBUTEROL NEBULIZED 2.5 MG/3 ML INHALATION STA (04:49)
[2021-10-15] MEDS ORDERED: AZITHROMYCIN 500 MG TAB PO STA (04:50)
[2021-10-15 07:27] VITALS: BP 156/76; PULSE 80; RESP 18
== END 2021-10-15 05:57 | disposition left against medical advice (07) ==
LOC: EC 00:56
DX: J40 Bronchitis, not specified as acute or chronic (principal); Z20.822 Contact with and (suspected) exposure to COVID-19; I10 Essential (primary) hypertension; E78.5 Hyperlipidemia, unspecified; J44.9 Chronic obstructive pulmonary disease, unspecified; K21.9 Gastro-esophageal reflux disease without esophagitis; F03.90 Unspecified dementia, unspecified severity, without behavioral disturbance, psychotic disturbance, mood disturbance, and anxiety; F32.A Depression, unspecified; F41.9 Anxiety disorder, unspecified; Z87.891 Personal history of nicotine dependence; Z79.82 Long term (current) use of aspirin; Z79.899 Other long term (current) drug therapy; Z88.0 Allergy status to penicillin; Z88.2 Allergy status to sulfonamides; Z88.6 Allergy status to analgesic agent; Z88.5 Allergy status to narcotic agent; Z88.8 Allergy status to other drugs, medicaments and biological substances
CPT/HCPCS: 36415; 71046; 80053; 83880; 84484; 85025; 85379; 87636; 93005; 94640; 99284

== ENCOUNTER → 2022-01-23 | Day surgery (SDC) | payer MEDICARE ==
[2022-01-21 09:05] VITALS: BMI 54.1
[~2022-01-23] MED LIST changes: +ALPRAZolam 0.25 MG TAB PO PRN; +ALPRAZolam 0.5 MG TAB PO PRN; +ASPIRIN 325 MG TAB PO ONE; +ASPIRIN 81 MG PO SCH; +ATORVASTATIN 40 MG TAB PO SCH; +CARBAMAZEPINE 100 MG/5 ML PO SCH; +CLOBETASOL PROPIONATE TOPICAL SCH; +COLCHICINE 0.6 MG PO SCH; +ENALAPRIL MALEATE 20 MG PO SCH; +FUROSEMIDE 20 MG TAB PO SCH; +HEPARIN SODIUM 1,000 UN/ML (10ML VL) ONE; +HEPARIN SODIUM,PORCINE 10,000 UNIT in SODIUM CHLORIDE 0.9% 1,000 ML IRRIGATION PRN; +HEPARIN SODIUM,PORCINE 2,500 UNIT in SODIUM CHLORIDE 0.9% 250 ML IRRIGATION PRN; +IOPAMIDOL-370 125ML BTL INJ ONE; -LACTATED RINGERS 1,000 ML IV ONE; -LACTATED RINGERS 1,000 ML IV SCH; +METOPROLOL SUCCINATE (ER) 50 MG TAB.ER.24H PO SCH; +MIDAZOLAM 2 MG/2 ML VIAL IV ONE; +NITROGLYCERIN SL TABS 0.4 MG TAB SUBLINGUAL PRN; +NON FORMULARY DRUG (Acetaminophen [Tylenol 8 Hour] 650 MG Tablet) PO SCH; +NON FORMULARY DRUG (Acetaminophen [Tylenol Extra Strength] 500 MG Packet) PO SCH; +NON FORMULARY DRUG (Cholecalciferol (Vitamin D3) [Vitamin D3 (125 Mcg = 5,000 Iu)] 125 MCG PO SCH; +NON FORMULARY DRUG (Garlic [Garlic] 1,000 MG Capsule) PO SCH; +NON FORMULARY DRUG (Hydralazine Hcl [Apresoline] 100 MG Tablet) PO SCH; +NON FORMULARY DRUG (Multivit-Min/Folic Acid/Biotin [Hair, Skin And Nails Softgel] 133.3 MC PO SCH; -PROPOFOL 10 MG/ML 20 ML VIAL IV ONE; +QUEtiapine 25 MG TAB PO SCH; +RX INFO: IV CONTRAST WAS GIVEN 1 EACH MISC MISCELLANE PRN; +SODIUM CHLORIDE 0.9% 1,000 ML in EMPTY BAG 1 BAG IV SCH; +SPIRONOLACTONE 25 MG TAB PO SCH; +VERAPAMIL 2.5 MG/ML 2 ML AMP ONE; +VERAPAMIL SYRINGE (5 MG/10 ML) INTRAARTER ONE; +amLODIPine 10 MG TAB PO SCH; +fentaNYL (PF) 50 MCG/ML 2 ML AMP ONE; +levETIRAcetam ORAL SOLN 500 MG/5 ML CUP PO SCH; +methylPREDNISolone SOD SUCCI 125 MG/2 ML VIAL ONE
[2022-01-23 07:20] LABS: Glucose,Whole Blood 120 mg/dL (75-99)
[2022-01-23 07:22] VITALS: TEMP 98.3
[2022-01-23] MEDS: LIDOCAINE 1% INJ 10MG/ML (20 ML MDV) SQ ONE ×2 (07:58→08:08)
[2022-01-23] MEDS: fentaNYL (PF) 50 MCG/ML 2 ML AMP IV ONE ×2 (08:00→08:15)
[2022-01-23 13:39] VITALS: BP 121/79; PULSE 64; RESP 16
--- NOTE | 2022-01-24 12:52 | P.PCN ---
Date of Procedure: 01/24/22 Operative Findings: CARDIAC CATHETERIZATION PERFORMING PHYSICIAN: Ahmet Bruno MD, RPVI PROCEDURE PERFORMED: 1. Selective right and left coronary angiogram 2. Left heart catheterization INDICATION: Intermittent episodes of chest discomfort concerning for angina in this 66-year-old female patient who has multiple risk factors for CAD COMPLICATION: None APPROACH: Right common femoral artery LEVEL OF SEDATION: Moderate with severe elevation length of 12 minutes PROCEDURE DESCRIPTION: After obtaining an informed consent, the patient was brought to cardiac wharf labourer. Initially I tried to do the heart catheterization from right radial approach but the patient had severe pain in the right arm and I could not advance the catheter from the right brachial artery and for that reason I aborted the right radial approach and I decided to go from right groin. The right common femoral artery was cannulated using Seldinger technique, the guidewire passed easily, following that we advanced a 6 [place] sheath dilator assembly, the wire and dilator were removed and sheath was flushed. Selective right and left coronary angiogram using a 6-[place] JR4 and JL catheters. Following that we did left heart catheterization using 6-[place] pigtail catheter. The procedure was completed there was no complication. SELECTIVE CORONARY ANGIOGRAM: The right coronary artery: Is a large caliber vessel and a dominant vessel. Its angiographically normal. Distally bifurcates into PDA and PLV branches and both appeared to be angiographically normal Left main: Is angiographically normal. Bifurcates into LCx and LAD The left circumflex: Is a large caliber vessel nondominant vessel. The LCx has mild disease only. Gives rises into a large OM branch which trifurcates into 3 subbranches appear to have mild disease only. The left anterior descending artery: Is a large caliber vessel. The proximal LAD appears to be angiographically normal. Gives rise into a diagonal branch which is a large caliber vessel with proximal lesion appeared to be in the range of 60-70%. The mid and distal LAD appears to have mild disease only. HEMODYNAMICS: The LVEDP was about 12 mmHg without significant gradient across aortic valve CONCLUSION: 1. Intermediate to severe lesion involving the first diagonal branch of the LAD which is a large caliber vessel 2. Normal left-sided filling pressure POSTPROCEDURE MANAGEMENT: Consider medical treatment at this point and consider PCI of the diagonal if the patient continues to be symptomatic in spite of medical treatment
== END ==
LOC: CATHCVL 06:48
PROVIDERS: ATTEND Internal Medicine Interventional Cardiology
DX: I25.110 Atherosclerotic heart disease of native coronary artery with unstable angina pectoris (principal); I10 Essential (primary) hypertension; E11.51 Type 2 diabetes mellitus with diabetic peripheral angiopathy without gangrene; E78.00 Pure hypercholesterolemia, unspecified; Z82.49 Family history of ischemic heart disease and other diseases of the circulatory system; Z20.822 Contact with and (suspected) exposure to COVID-19; Z72.0 Tobacco use; Z88.6 Allergy status to analgesic agent; Z88.5 Allergy status to narcotic agent; Z88.0 Allergy status to penicillin; Z88.8 Allergy status to other drugs, medicaments and biological substances; Z88.9 Allergy status to unspecified drugs, medicaments and biological substances; Z91.09 Other allergy status, other than to drugs and biological substances
CPT/HCPCS: 93458; 87635; C1760; C1894 ×2; C1769 ×3; J2250; J2930; J2001; J3010; Q9967

== ENCOUNTER 2022-05-08 15:47 | Observation (INO) | payer MEDICARE ==
[2022-05-08 16:04] VITALS: TEMP 98.2
--- NOTE | 2022-05-08 16:08 | ED ---
Chest Pain HPI - General Chief Complaint: Chest Pain Stated Complaint: SOB/Headache/Chest Pain Time Seen by Provider: 05/08/22 16:06 Source: patient, RN notes reviewed Mode of arrival: wheelchair Limitations: no limitations - History of Present Illness Initial Comments: Patient is a 67-year-old female who presents to the emergency room with complaints of chest pain and shortness of breath. She has chronic shortness of breath with minimal activity reports that she developed some substernal chest pain associated with her shortness of breath today after receiving steroid injections in her feet. She is following with Dr. Bruno outpatient for known cardiovascular disease and reports that she recently had adjustments in medications and he was considering taking her to the cardiac catheterization lab for possible stent placement. She denies any chest pain at this time. She does have some conversational dyspnea and admits to shortness of breath with minimal activity however this is not significantly worse than her baseline. She is also complaining of a headache that she reports is chronic and she utilizes Tylenol for. She denies any fevers, chills, abdominal pain, nausea or vomiting. In addition to following with cardiology if she follows with multiple other specialists including nephrology who she reports monitors her blood pressure medications and renal function. He has a significant past medical history of multiple strokes with left-sided weakness, fall with brain bleed in 2016, Peripheral vascular disease, morbid obesity, diabetes, hypertension, hyperlipidemia, chronic kidney disease, COPD and GERD. - Related Data Home Medications Medication Instructions Recorded Confirmed QUEtiapine [SEROquel] 25 mg PO HS 11/11/16 01/23/22 carBAMazepine [carBAMazepine Susp] 100 mg PO BID 12/18/16 01/23/22 levETIRAcetam [Levetiracetam] 750 mg PO BID 02/10/17 01/23/22 Aspirin 81 mg PO HS 04/23/21 01/23/22 hydrALAZINE HCL [Apresoline] 100 mg PO TID 04/23/21 01/23/22 Acetaminophen [Tylenol 8 Hour] 650 mg PO BID 01/21/22 01/23/22 Acetaminophen [Tylenol Extra 500 mg PO BID 01/21/22 01/23/22 Strength] Atorvastatin [Lipitor] 40 mg PO HS 01/21/22 01/23/22 Cholecalciferol (Vitamin D3) 125 mcg PO DAILY 01/21/22 01/23/22 [Vitamin D3 (125 MCG = 5,000 IU)] Clobetasol Propionate [Temovate 1 applic TOPICAL BID 01/21/22 01/21/22 0.05% Cream] Colchicine 0.6 mg PO TU 01/21/22 01/23/22 Enalapril Maleate 20 mg PO BID 01/21/22 01/23/22 Furosemide [Lasix] 20 mg PO DAILY 01/21/22 01/23/22 Garlic 1,000 mg PO DAILY 01/21/22 01/23/22 Metoprolol Succinate (ER) [Toprol 50 mg PO BID 01/21/22 01/23/22 XL] Multivit-Min/Folic Acid/Biotin 133.3 mcg PO DAILY 01/21/22 01/23/22 [Hair, Skin and Nails Softgel] Spironolactone 25 mg PO HS 01/21/22 01/23/22 amLODIPine [Norvasc] 10 mg PO HS 01/21/22 01/23/22 Allergies Allergy/AdvReac Type Severity Reaction Status Date / Time cefdinir [From Omnicef] Allergy Rash/Hives Verified 05/08/22 16:04 colchicine Allergy Rash/Hives/ Verified 05/08/22 16:04 Nausea ezetimibe [From Zetia] Allergy Rash/Hives Verified 05/08/22 16:04 Gadolinium-Containing Allergy Itching Verified 05/08/22 16:04 Contrast Medi hydrocodone Allergy Rash/Hives Verified 05/08/22 16:04 ibuprofen Allergy Itching Verified 05/08/22 16:04 Iodinated Contrast Media Allergy Rash/Hives, Verified 05/08/22 16:04 [Iodinated Contrast Media - itching,swe Oral and] lling loracarbef [From Lorabid] Allergy Rash/Hives Verified 05/08/22 16:04 morphine Allergy Rash/Hives Verified 05/08/22 16:04 Penicillins Allergy Rash/Hives Verified 05/08/22 16:04 sulfamethoxazole Allergy Rash/Hives Verified 05/08/22 16:04 [From Septra] topiramate Allergy Unknown Verified 05/08/22 16:04 trimethoprim [From Septra] Allergy Rash/Hives Verified 05/08/22 16:04 albuterol AdvReac DRY THROAT Verified 05/08/22 16:04 atorvastatin [From Lipitor] AdvReac joint pain Verified 05/08/22 16:04 ipratropium AdvReac dry throat Verified 05/08/22 16:04 lovastatin AdvReac joint pain Verified 05/08/22 16:04 tiotropium AdvReac dry throat Verified 05/08/22 16:04 [From Spiriva with HandiHaler] tramadol AdvReac seizures Verified 05/08/22 16:04 mefix tape Allergy Rash/Hives Uncoded 05/08/22 16:04 Review of Systems ROS Statement: Those systems with pertinent positive or pertinent negative responses have been documented in the HPI. ROS Other: All systems not noted in ROS Statement are negative. EKG Findings - EKG Comments: EKG Findings:: Sinus rhythm with sinus arrhythmia, possible anterior myocardial infarction probably old. Ventricular rate 75 bpm, DE interval 154 ms, QRS duration 70 ms, QT/QTC 373/402 ms, PRT axis 35, 1, 1, Past Medical History Past Medical History: Asthma, COPD, CVA/TIA, Dementia, Diabetes Mellitus, Deep Vein Thrombosis (DVT), GERD/Reflux, Hyperlipidemia, Hypertension, Memory Impairment Additional Past Medical History / Comment(s): fell & hit her head 04/2016 resulting in hematoma & subsequent stroke x2 with seizure, using cane currently & also still has trouble w/pills & food getting stuck @times, takes no meds for diabetes, rheumatic fever, heart murmur, deaf r ear, pvd, carotid stenosis, dvt r leg, short term memory impairment, LARGE LT GOITER History of Any Multi-Drug Resistant Organisms: None Reported Past Surgical History: Adenoidectomy, Bariatric Surgery, Cholecystectomy, Heart Catheterization With Stent, Hysterectomy, Joint Replacement, Orthopedic Surgery, Tonsillectomy Additional Past Surgical History / Comment(s): mena. hip replacement, cervical fusion, lap band surgery , bilateral carpal tunnel, panniculectomy , r iliac stent, tubes in brain after fall and hematoma 05/10, rt carotid endardectomy, rt leg angioplasty balloon, colonoscopies, EGD, flexible sigmoidoscopy Past Anesthesia/Blood Transfusion Reactions: No Reported Reaction Date of Last Stent Placement:: noT know by pt Past Psychological History: Anxiety, Depression Smoking Status: Former smoker Past Alcohol Use History: None Reported Past Drug Use History: None Reported - Past Family History Sister(s) Family Medical History: Cancer, Coronary Artery Disease (CAD), Hyperlipidemia, Hypertension Additional Family Medical History / Comment(s): aneurysm, heart stents; 4 living sisters, uterine cancer Brother(s) Family Medical History: Hypertension, Myocardial Infarction ([place]) Additional Family Medical History / Comment(s): stents in legs, heart disease, carotid disease, triple bypass; 2 brother : heart disease; 1 brother living Mother Family Medical History: Coronary Artery Disease (CAD), Diabetes Mellitus Additional Family Medical History / Comment(s): Father Family Medical History: Coronary Artery Disease (CAD) Additional Family Medical History / Comment(s): General Exam Limitations: no limitations General appearance: alert, in no apparent distress Head exam: Present: atraumatic, normocephalic, normal inspection Eye exam: Present: normal appearance, PERRL, EOMI. Absent: scleral icterus, conjunctival injection, periorbital swelling ENT exam: Present: normal exam, mucous membranes moist Neck exam: Present: normal inspection, other (large neck) Respiratory exam: Present: decreased breath sounds, other (Intermittent elevated respiratory rate worse with conversation.). Absent: respiratory distress, wheezes, rales, rhonchi, accessory muscle use Cardiovascular Exam: Present: regular rate, normal rhythm, normal heart sounds, systolic murmur. Absent: diastolic murmur, rubs, gallop GI/Abdominal exam: Present: soft, normal bowel sounds. Absent: distended, tenderness, guarding, rebound, rigid Extremities exam: Present: pedal edema, joint swelling Back exam: Present: normal inspection Neurological exam: Present: alert, oriented X3, CN II-XII intact Expanded Motor strength exam: RUE: 4, LUE: 5, RLE: 4, LLE: 5 Psychiatric exam: Present: normal affect, normal mood Skin exam: Present: warm, dry Course Vital Signs 05/08/22 16:00 Temperature 98.2 F Pulse Rate 74 Respiratory 16 Rate Blood Pressure 200/84 O2 Sat by Pulse 94 L Oximetry Chest Pain MDM - MDM Due to known cardiovascular disease and worsening of shortness of breath with associated chest pain in the setting of steroid injection high concern for d evelopment of unstable angina. EKG with minimal changes when compared to her EKG in September 2021. No evidence of ST changes. Overall her blood work is stable including negative troponins. Mild dehydration noted however she has bilateral lower extremity edema and will not tolerate fluid bolus. Chest x-ray with cardiomegaly no acute cardiopulmonary process. Will plan for admission for observation and cardiac consult for further evaluation. Will give aspirin along with Nitropaste and monitor blood pressure closely. Will give supplemental oxygen as well. Case discussed with Dr. Mahoney. Admission information provided to Dr. Ramos admitting for [facility] at this time. Disposition Clinical Impression: Chest pain Disposition: ADMITTED IP TO THIS HOSP Condition: Stable Is patient prescribed a controlled substance at d/c from ED?: No Referrals: Nonstaff,Physician [REFERRING] - 1-2 days Time of Disposition: 19:34
[2022-05-08 16:30] LABS: Basophils % (A) 0 %; Eosinophils % (A) 0 %; HGB 12.4 gm/dL (11.4-16.0); Lymphocytes # (A) 0.9 k/uL (1.0-4.8); Lymphocytes % (A) 13 %; MCH 30.2 pg (25.0-35.0); MCHC 31.9 g/dL (31.0-37.0); MCV 94.7 fL (80.0-100.0); Mean Platelet Volume 7.7; Monocytes # (A) 0.1 k/uL (0-1.0); Monocytes % (A) 1 %; Neutrophils # (A) 5.7 k/uL (1.3-7.7); Neutrophils % (A) 85 %; Platelet Count 287 k/uL (150-450); RBC 4.11 m/uL (3.80-5.40); RDW 13.6 % (11.5-15.5); WBC 6.8 k/uL (3.8-10.6)
[2022-05-08 16:40] LABS: Albumin 4.3 g/dL (3.5-5.0); Calcium 9.5 mg/dL (8.4-10.2); Magnesium 1.8 mg/dL (1.6-2.3); Potassium 4.7 mmol/L (3.5-5.1); Total Bilirubin 0.2 mg/dL (0.2-1.3); Total Protein 7.1 g/dL (6.3-8.2)
--- NOTE | 2022-05-08 16:55 | XR ---
EXAMINATION TYPE: XR chest 2V DATE OF EXAM: 05/08/2022 COMPARISON: Chest x-ray October 15, 2021 HISTORY: Chest pain. TECHNIQUE: Frontal and lateral views of the chest are obtained. FINDINGS: There is no suspicious focal air space opacity, pleural effusion, or pneumothorax seen. Ca rdiomegaly is redemonstrated. The osseous structures are intact. IMPRESSION: Cardiomegaly without acute pulmonary process. No significant change from prior.
[2022-05-08] MEDS ORDERED: NITROGLYCERIN OINT 1 INCH/GM PACKET TOPICAL STA (19:20)
[2022-05-08] MEDS ORDERED: ASPIRIN 81 MG PO STA (19:20)
[2022-05-08] MEDS ORDERED: hydrALAZINE HCL 20 MG/ML 1 ML VIAL IVP STA ×2 (19:21→22:04)
[2022-05-08] MEDS ORDERED: NALOXONE 0.4 MG/ML 1 ML VIAL IV PRN (19:29)
[2022-05-08] MEDS ORDERED: amLODIPine 10 MG TAB PO STA (22:04)
[2022-05-08 22:36] VITALS: BP 191/89; PULSE 84; RESP 18
--- NOTE | 2022-05-09 01:51 | P.HPIM ---
History of Present Illness H&P Date: 05/08/22 Chief Complaint: chest pain 67 year old female with CAD patient comes in due to sudden onset chest pain , central stabbing pain and to the left side of the chest , associated with SOB, improved with nitro patch and aspirin. denies any profuse sweating nausea or vomiting. no dizziness or palpitations patient had LHC 3 months ago and showed moderate to severe disease inthe diagonal with plans for PCI in the future if recurrent pain . no recent travel , no recent prolonged hospital stay she also report pain in the left calf muscle with chronic swelling bilateral le gs. patient does not want to stay in the hospital and would like to leave AMA Review of Systems Pertinent positives as noted in HPI. All other systems were reviewed and are negative Past Medical History Past Medical History: Asthma, COPD, CVA/TIA, Dementia, Diabetes Mellitus, Deep Vein Thrombosis (DVT), GERD/Reflux, Hyperlipidemia, Hypertension, Memory Impairment Additional Past Medical History / Comment(s): fell & hit her head 04/2016 resulting in hematoma & subsequent stroke x2 with seizure, using cane currently & also still has trouble w/pills & food getting stuck @times, takes no meds for diabetes, rheumatic fever, heart murmur, deaf r ear, pvd, carotid stenosis, dvt r leg, short term memory impairment, LARGE LT GOITER History of Any Multi-Drug Resistant Organisms: None Reported Past Surgical History: Adenoidectomy, Bariatric Surgery, Cholecystectomy, Heart Catheterization With Stent, Hysterectomy, Joint Replacement, Orthopedic Surgery, Tonsillectomy Additional Past Surgical History / Comment(s): mena. hip replacement, cervical fusion, lap band surgery , bilateral carpal tunnel, panniculectomy , r iliac stent, tubes in brain after fall and hematoma 05/10, rt carotid endardectomy, rt leg angioplasty balloon, colonoscopies, EGD, flexible sigmoidoscopy Past Anesthesia/Blood Transfusion Reactions: No Reported Reaction Date of Last Stent Placement:: noT know by pt Past Psychological History: Anxiety, Depression Smoking Status: Former smoker Past Alcohol Use History: None Reported Past Drug Use History: None Reported - Past Family History Sister(s) Family Medical History: Cancer, Coronary Artery Disease (CAD), Hyperlipidemia, Hypertension Additional Family Medical History / Comment(s): aneurysm, heart stents; 4 living sisters, uterine cancer Brother(s) Family Medical History: Hypertension, Myocardial Infarction ([place]) Additional Family Medical History / Comment(s): stents in legs, heart disease, carotid disease, triple bypass; 2 brother : heart disease; 1 brother living Mother Family Medical History: Coronary Artery Disease (CAD), Diabetes Mellitus Additional Family Medical History / Comment(s): Father Family Medical History: Coronary Artery Disease (CAD) Additional Family Medical History / Comment(s): Medications and Allergies Home Medications Medication Instructions Recorded Confirmed Type QUEtiapine [SEROquel] 25 mg PO HS 11/11/16 05/08/22 History carBAMazepine [carBAMazepine Susp] 100 mg PO DIRECTED 12/18/16 05/08/22 History levETIRAcetam [Levetiracetam] 750 mg PO BID 02/10/17 05/08/22 History Aspirin 81 mg PO HS 04/23/21 05/08/22 History hydrALAZINE HCL [Apresoline] 100 mg PO BID 04/23/21 05/08/22 History Acetaminophen [Tylenol 8 Hour] 650 mg PO BID 01/21/22 05/08/22 History Atorvastatin [Lipitor] 40 mg PO HS 01/21/22 05/08/22 History Cholecalciferol (Vitamin D3) 125 mcg PO DAILY 01/21/22 05/08/22 History [Vitamin D3 (125 MCG = 5,000 IU)] Colchicine 0.6 mg PO TU@2100 01/21/22 05/08/22 History Enalapril Maleate 20 mg PO BID 01/21/22 05/08/22 History Garlic 1,000 mg PO DAILY 01/21/22 05/08/22 History Metoprolol Succinate (ER) [Toprol 50 mg PO BID 01/21/22 05/08/22 History XL] Multivit-Min/Folic Acid/Biotin 133.3 mcg PO DAILY 01/21/22 05/08/22 History [Hair, Skin and Nails Softgel] Spironolactone 25 mg PO HS 01/21/22 05/08/22 History amLODIPine [Norvasc] 10 mg PO HS 01/21/22 05/08/22 History Furosemide 10mg/Ml 10 mg PO DAILY PRN 05/08/22 05/08/22 History Isosorbide Mononitrate ER [Imdur] 30 mg PO DAILY 05/08/22 05/08/22 History cloNIDine 0.3 MG/24HR PATCH 1 patch TRANSDERM TU 05/08/22 05/08/22 History [Catapres-Tts 0.3MG Patch] Allergies Allergy/AdvReac Type Severity Reaction Status Date / Time cefdinir [From Omnicef] Allergy Rash/Hives Verified 05/08/22 21:01 colchicine Allergy Rash/Hives/ Verified 05/08/22 21:01 Nausea ezetimibe [From Zetia] Allergy Rash/Hives Verified 05/08/22 21:01 Gadolinium-Containing Allergy Itching Verified 05/08/22 21:01 Contrast Medi hydrocodone Allergy Rash/Hives Verified 05/08/22 21:01 ibuprofen Allergy Itching Verified 05/08/22 21:01 Iodinated Contrast Media Allergy Rash/Hives, Verified 05/08/22 21:01 [Iodinated Contrast Media - itching,swe Oral and] lling loracarbef [From Lorabid] Allergy Rash/Hives Verified 05/08/22 21:01 morphine Allergy Rash/Hives Verified 05/08/22 21:01 Penicillins Allergy Unknown Verified 05/08/22 21:01 Childhood sulfamethoxazole Allergy Rash/Hives Verified 05/08/22 21:01 [From Septra] topiramate Allergy Unknown Verified 05/08/22 21:01 trimethoprim [From Septra] Allergy Rash/Hives Verified 05/08/22 21:01 albuterol AdvReac DRY THROAT Verified 05/08/22 21:01 atorvastatin [From Lipitor] AdvReac joint pain Verified 05/08/22 21:01 ipratropium AdvReac dry throat Verified 05/08/22 21:01 lovastatin AdvReac joint pain Verified 05/08/22 21:01 tiotropium AdvReac dry throat Verified 05/08/22 21:01 [From Spiriva with HandiHaler] tramadol AdvReac seizures Verified 05/08/22 21:01 mefix tape Allergy Rash/Hives Uncoded 05/08/22 16:04 Physical Exam Vitals: Vital Signs Temp Pulse Resp BP Pulse Ox 05/08/22 21:55 81 16 203/88 99 05/08/22 21:07 87 16 206/86 99 05/08/22 19:20 84 18 230/100 97 05/08/22 19:00 79 20 97 05/08/22 16:00 98.2 F 74 16 200/84 94 L Intake and Output 05/08/22 05/08/22 05/08/22 06:59 14:59 22:59 Other: Weight 142.882 kg Constitutional: No acute distress, conversant, pleasant Eyes: Anicteric sclerae, moist conjunctiva, Pupils equal round reactive to light ENMT: NC/AT Oropharynx clear, no erythema, or exudates Neck: Supple, FROM, no masses, or JVD No carotid bruits No thyromegaly Lungs: Clear to auscultation Clear to percussion Normal respiratory effort, no accessory muscle use Cardiovascular: Heart regular in rate and rhythm, systolic murmurs, no gallops, or rubs +1 peripheral edema Abdominal: Soft Nontender, no guarding, rebound or rigidity Abdomen moving with respiration Normoactive bowel sounds obese limiting exM No abdominal wall hernia noted Skin: chronic skin changes bilateral lower third of the legs Extremities: No digital cyanosis No clubbing Pedal pulses intact and symmetrical Radial pulses intact and symmetrical discomfort to deep palpation of the left leg Psychiatric: Alert and oriented to person, place and time Appropriate affect fair judgement Neuro Muscles Strength 4/5 in all 4 extremities Sensation to light touch grossly present throughout Cranial nerves II-XII grossly intact No focal sensory deficits Lymphatics: no palpable cervical or supraclavicular , or inguinal lymph nodes Results CBC & Chem 7: 05/08/22 16:15 05/08/22 16:15 Labs: Abnormal Lab Results - Last 24 Hours (Table) 05/08/22 05/08/22 Range/Units 16:15 16:15 Lymphocytes # 0.9 L (1.0-4.8) k/uL BUN 23 H (7-17) mg/dL Glucose 168 H (74-99) mg/dL Assessment and Plan Assessment: atypical chest pain rule out ACS EKG no acute changes CXR no acute pathology trops negative X2 monitor technician monitor vital signs ASA, statin cardiology consult A1c, lipid panel , TSH pain control check d dimer , if positive, then venous doppler of the left leg patient wants to leave A
--- NOTE | 2022-05-09 01:52 | P.DS ---
Providers Consults: 05/08/22 19:39 Consult Physician Routine Consulting Provider: Ahmet Bruno Consult Reason/Comments: chest pain Do you want consulting provider notified?: Yes Primary care physician: Physician Nonstaff Hospital Course: Patient was admitted for atypical chest pain she has history of coronary artery disease with left heart cath done in January 2022 showing moderate to severe disease with plans for PCI of the diagonal in the future if chest pains recurrent. She also reported some new onset left leg tenderness no identifiable risk factors for DVT except obesity and decreased mobility plans was to perform d- dimer positive will check venous Doppler ultrasound Patient also reported some urinary symptoms with plans to perform UA to rule out urinary tract infection however patient decided to leave AGAINST MEDICAL ADVICE Patient Condition at Discharge: Undetermined Plan - Discharge Summary New Discharge Prescriptions: No Action QUEtiapine [SEROquel] 25 mg PO HS carBAMazepine [carBAMazepine Susp] 100 mg PO DIRECTED levETIRAcetam [Levetiracetam] 750 mg PO BID Aspirin 81 mg PO HS Metoprolol Succinate (ER) [Toprol XL] 50 mg PO BID Acetaminophen [Tylenol 8 Hour] 650 mg PO BID Spironolactone 25 mg PO HS Isosorbide Mononitrate ER [Imdur] 30 mg PO DAILY hydrALAZINE HCL [Apresoline] 100 mg PO BID Cholecalciferol (Vitamin D3) [Vitamin D3 (125 MCG = 5,000 IU)] 125 mcg PO DAILY amLODIPine [Norvasc] 10 mg PO HS Multivit-Min/Folic Acid/Biotin [Hair, Skin and Nails Softgel] 133.3 mcg PO DAILY Garlic 1,000 mg PO DAILY Enalapril Maleate 20 mg PO BID Colchicine 0.6 mg PO TU@2100 Atorvastatin [Lipitor] 40 mg PO HS Furosemide 10mg/Ml 10 mg PO DAILY PRN PRN Reason: edema, when not going out cloNIDine 0.3 MG/24HR PATCH [Catapres-Tts 0.3MG Patch] 1 patch TRANSDERM TU Discharge Medication List QUEtiapine [SEROquel] 25 mg PO HS 11/11/16 [History] carBAMazepine [carBAMazepine Susp] 100 mg PO DIRECTED 12/18/16 [History] levETIRAcetam [Levetiracetam] 750 mg PO BID 02/10/17 [History] Aspirin 81 mg PO HS 04/23/21 [History] hydrALAZINE HCL [Apresoline] 100 mg PO BID 04/23/21 [History] Acetaminophen [Tylenol 8 Hour] 650 mg PO BID 01/21/22 [History] Atorvastatin [Lipitor] 40 mg PO HS 01/21/22 [History] Cholecalciferol (Vitamin D3) [Vitamin D3 (125 MCG = 5,000 IU)] 125 mcg PO DAILY 01/21/22 [History] Colchicine 0.6 mg PO TU@2100 01/21/22 [History] Enalapril Maleate 20 mg PO BID 01/21/22 [History] Garlic 1,000 mg PO DAILY 01/21/22 [History] Metoprolol Succinate (ER) [Toprol XL] 50 mg PO BID 01/21/22 [History] Multivit-Min/Folic Acid/Biotin [Hair, Skin and Nails Softgel] 133.3 mcg PO DAILY 01/21/22 [History] Spironolactone 25 mg PO HS 01/21/22 [History] amLODIPine [Norvasc] 10 mg PO HS 01/21/22 [History] Furosemide 10mg/Ml 10 mg PO DAILY PRN 05/08/22 [History] Isosorbide Mononitrate ER [Imdur] 30 mg PO DAILY 05/08/22 [History] cloNIDine 0.3 MG/24HR PATCH [Catapres-Tts 0.3MG Patch] 1 patch TRANSDERM 05/08/22 [History] Follow up Appointment(s)/Referral(s): Nonstaff,Physician [Primary Care Provider] - 1-2 days Discharge Disposition: ADMITTED IP TO THIS HOSP
== END 2022-05-09 00:33 | disposition left against medical advice (07) ==
LOC: EC 15:47 → 6NMEDSUR 19:02
PROVIDERS: ADMIT Internal Medicine; ATTEND Internal Medicine
DX: R07.89 Other chest pain (principal); E86.0 Dehydration; I13.10 Hypertensive heart and chronic kidney disease without heart failure, with stage 1 through stage 4 chronic kidney disease, or unspecified chronic kidney disease; N18.9 Chronic kidney disease, unspecified; E11.22 Type 2 diabetes mellitus with diabetic chronic kidney disease; I25.10 Atherosclerotic heart disease of native coronary artery without angina pectoris; Z53.29 Procedure and treatment not carried out because of patient's decision for other reasons; J44.9 Chronic obstructive pulmonary disease, unspecified; G81.94 Hemiplegia, unspecified affecting left nondominant side; E11.51 Type 2 diabetes mellitus with diabetic peripheral angiopathy without gangrene; E78.5 Hyperlipidemia, unspecified; F03.90 Unspecified dementia, unspecified severity, without behavioral disturbance, psychotic disturbance, mood disturbance, and anxiety; K21.9 Gastro-esophageal reflux disease without esophagitis; E66.01 Morbid (severe) obesity due to excess calories; Z68.43 Body mass index [BMI] 50.0-59.9, adult; R60.0 Localized edema; M79.662 Pain in left lower leg; E04.9 Nontoxic goiter, unspecified; H91.91 Unspecified hearing loss, right ear; F32.A Depression, unspecified; F41.9 Anxiety disorder, unspecified; Z79.82 Long term (current) use of aspirin; Z79.899 Other long term (current) drug therapy; Z87.891 Personal history of nicotine dependence; Z88.6 Allergy status to analgesic agent; Z88.1 Allergy status to other antibiotic agents; Z91.041 Radiographic dye allergy status; Z88.5 Allergy status to narcotic agent; Z88.0 Allergy status to penicillin; Z88.2 Allergy status to sulfonamides; Z88.8 Allergy status to other drugs, medicaments and biological substances; Z91.048 Other nonmedicinal substance allergy status; Z86.718 Personal history of other venous thrombosis and embolism; Z86.79 Personal history of other diseases of the circulatory system; Z86.19 Personal history of other infectious and parasitic diseases; Z91.81 History of falling; Z98.84 Bariatric surgery status; Z95.5 Presence of coronary angioplasty implant and graft; Z90.49 Acquired absence of other specified parts of digestive tract; Z90.710 Acquired absence of both cervix and uterus; Z96.643 Presence of artificial hip joint, bilateral; Z98.1 Arthrodesis status; Z98.890 Other specified postprocedural states; Z82.49 Family history of ischemic heart disease and other diseases of the circulatory system; Z80.49 Family history of malignant neoplasm of other genital organs; Z83.49 Family history of other endocrine, nutritional and metabolic diseases; Z83.3 Family history of diabetes mellitus
CPT/HCPCS: 96376; 96374; 99285; 36415; 93005; 80053; 83735; 84484; 85025; 71046; G0378; J0360

== ENCOUNTER 2022-09-11 06:34 | Day surgery (SDC) | payer MEDICARE ==
[~2022-09-11 06:34] MED LIST changes: -ASPIRIN 325 MG TAB PO ONE; +ASPIRIN 325 MG TAB PO STA; -ASPIRIN 81 MG PO SCH; -ATORVASTATIN 40 MG TAB PO SCH; +ATORVASTATIN 80 MG TAB PO STA; -CARBAMAZEPINE 100 MG/5 ML PO SCH; -CLOBETASOL PROPIONATE TOPICAL SCH; -COLCHICINE 0.6 MG PO SCH; -ENALAPRIL MALEATE 20 MG PO SCH; -FUROSEMIDE 20 MG TAB PO SCH; -HEPARIN SODIUM 1,000 UN/ML (10ML VL) ONE; -IOPAMIDOL-370 125ML BTL INJ ONE; -LIDOCAINE 1% INJ 10MG/ML (20 ML MDV) ONE; -METOPROLOL SUCCINATE (ER) 50 MG TAB.ER.24H PO SCH; -MIDAZOLAM 2 MG/2 ML VIAL IV ONE; -NON FORMULARY DRUG (Acetaminophen [Tylenol 8 Hour] 650 MG Tablet) PO SCH; -NON FORMULARY DRUG (Acetaminophen [Tylenol Extra Strength] 500 MG Packet) PO SCH; -NON FORMULARY DRUG (Cholecalciferol (Vitamin D3) [Vitamin D3 (125 Mcg = 5,000 Iu)] 125 MCG PO SCH; -NON FORMULARY DRUG (Garlic [Garlic] 1,000 MG Capsule) PO SCH; -NON FORMULARY DRUG (Hydralazine Hcl [Apresoline] 100 MG Tablet) PO SCH; -NON FORMULARY DRUG (Multivit-Min/Folic Acid/Biotin [Hair, Skin And Nails Softgel] 133.3 MC PO SCH; -QUEtiapine 25 MG TAB PO SCH; -RX INFO: IV CONTRAST WAS GIVEN 1 EACH MISC MISCELLANE PRN; -SODIUM CHLORIDE 0.9% 1,000 ML in EMPTY BAG 1 BAG IV SCH; -SPIRONOLACTONE 25 MG TAB PO SCH; -VERAPAMIL 2.5 MG/ML 2 ML AMP ONE; -VERAPAMIL SYRINGE (5 MG/10 ML) INTRAARTER ONE; -amLODIPine 10 MG TAB PO SCH; -fentaNYL (PF) 50 MCG/ML 2 ML AMP ONE; -levETIRAcetam ORAL SOLN 500 MG/5 ML CUP PO SCH; -methylPREDNISolone SOD SUCCI 125 MG/2 ML VIAL ONE
[2022-09-11] MEDS ORDERED: SODIUM CHLORIDE 0.9% 1,000 ML IV ONE (06:41)
[2022-09-11 06:59] LABS: Glucose,Whole Blood 158 mg/dL (70-110)
[2022-09-11] MEDS ORDERED: VERAPAMIL 2.5 MG/ML 2 ML AMP ONE (07:23)
[2022-09-11] MEDS ORDERED: HEPARIN SODIUM 1,000 UN/ML (10ML VL) ONE ×2 (07:39→09:22)
[2022-09-11] MEDS ORDERED: MIDAZOLAM 2 MG/2 ML VIAL IVP ONE (07:47)
[2022-09-11] MEDS ORDERED: LIDOCAINE 1% INJ 10MG/ML (30 ML VIAL-PF) SQ ONE (07:49)
[2022-09-11] MEDS ORDERED: fentaNYL (PF) 50 MCG/ML 2 ML AMP ONE (07:52)
[2022-09-11] MEDS ORDERED: fentaNYL (PF) 50 MCG/ML 2 ML AMP IVP ONE ×2 (07:53→08:00)
[2022-09-11] MEDS ORDERED: hydrALAZINE HCL 20 MG/ML 1 ML VIAL ONE ×2 (07:54→08:25)
[2022-09-11] MEDS ORDERED: METOPROLOL TARTRATE 5 MG/5 ML VIAL IVP ONE ×2 (07:54→07:56)
[2022-09-11] MEDS ORDERED: hydrALAZINE HCL 20 MG/ML 1 ML VIAL IVP ONE ×3 (07:56→09:17)
[2022-09-11] MEDS ORDERED: HYDROmorphone 0.5 MG/0.5 ML SYRINGE IVP ONE (08:02)
[2022-09-11] MEDS ORDERED: HEPARIN SODIUM 1,000 UN/ML (10ML VL) IVP ONE ×2 (08:22→09:13)
[2022-09-11] MEDS ORDERED: ENALAPRILAT 1.25 MG/ML 1 ML VIAL ONE (08:25)
[2022-09-11] MEDS ORDERED: ENALAPRILAT 1.25 MG/ML 1 ML VIAL IV ONE (08:27)
[2022-09-11] MEDS ORDERED: hydrALAZINE HCL 20 MG/ML 1 ML VIAL IV ONE (08:28)
[2022-09-11] MEDS ORDERED: FUROSEMIDE 10 MG/ML 4 ML VIAL IVP ONE ×2 (08:45→08:50)
[2022-09-11] MEDS ORDERED: FUROSEMIDE 10 MG/ML 4 ML VIAL ONE ×3 (08:48→09:14)
[2022-09-11] MEDS ORDERED: MORPHINE SULFATE 4 MG/ML SYRINGE ONE ×2 (08:57→09:14)
[2022-09-11] MEDS ORDERED: MORPHINE SULFATE 4MG/4ML SYRG IVP ONE ×3 (09:00→09:16)
[2022-09-11] MEDS ORDERED: FUROSEMIDE 10 MG/ML 4 ML VIAL IV ONE ×2 (09:05→09:16)
[2022-09-11] MEDS ORDERED: CLOPIDOGREL 75 MG TAB ONE (09:08)
[2022-09-11] MEDS ORDERED: IOPAMIDOL-370 125ML BTL INJ ONE (09:22)
[2022-09-11] MEDS ORDERED: IOPAMIDOL-370 50ML BTL INJ ONE (09:22)
[2022-09-11] MEDS ORDERED: CLOPIDOGREL 75 MG TAB PO ONE (09:28)
[2022-09-11] MEDS ORDERED: MAG HYDROX/AL HYDROX/SIMETH 30 ML CUP PO PRN (09:31)
[2022-09-11] MEDS ORDERED: RX INFO: IV CONTRAST WAS GIVEN 1 EACH MISC MISCELLANE PRN (09:31)
[2022-09-11] MEDS ORDERED: NITROGLYCERIN SL TABS 0.4 MG TAB SUBLINGUAL PRN (09:31)
[2022-09-11] MEDS ORDERED: ZOLPIDEM 5 MG TAB PO PRN (09:31)
[2022-09-11] MEDS ORDERED: ATROPINE SULFATE 0.1 MG/ML 10ML SYRINGE IV PRN (09:31)
[2022-09-11] MEDS ORDERED: NITROGLYCERIN-D5W PMX 50 MG in DEXTROSE/WATER 1 250ML.BAG IV ONE (09:35)
--- NOTE | 2022-09-11 09:43 | P.PCN ---
Date of Procedure: 09/11/22 Operative Findings: CARDIAC CATHETERIZATION AND PERCUTANEOUS CORONARY INTERVENTION PERFORMING PHYSICIAN: Ahmet Bruno MD, [facility] PROCEDURE PERFORMED: 1. Selective right and left coronary angiogram 2. Left heart catheterization 3. Successful stenting of first diagonal branch of the LAD using 2.5 x 18 mm Xience MAGALI which with an excellent angiographic results 4. FFR of the first diagonal branch 5. FFR of the RCA 6. selective right common femoral artery angiogram. 7. Ultrasound-guided access of the right common femoral artery INDICATION: This is a 67-year-old female patient with CAD and known severe disease involving the first diagonal branch of the LAD which was treated medically continues to have symptoms of shortness of breath and sometimes chest discomfort with exertio n. She was brought today to undergo PCI of the diagonal. COMPLICATION: None APPROACH: Right common femoral artery LEVEL OF SEDATION: Moderate with the sedation time off 90 minutes PROCEDURE DESCRIPTION: After obtaining an informed consent the patient was brought to the cardiac biological lab technician. The right common femoral artery was cannulated using micropuncture technique under ultrasound guidance, the micropuncture wire passed easily then I placed a 6-Kyrgyz sheath 11 cm at the right common femoral artery. I predilated the artery using 5-Kyrgyz dilator and a 6-Kyrgyz dilator before I placed 6- Kyrgyz sheath. Subsequently I did selective right coronary angiogram using JR4 diagnostic catheter. The angiogram of the RCA revealed intermediate lesion involving the ostial. Later on during the case with an FFR of the and that came in to be an nonischemic. Selective left coronary angiogram was performed using JL 4 catheter. Initially I attempted engaging the left main using CLS guide but that was unsuccessful. The selective left coronary angiogram revealed what it seems to be an intermediate lesion involving the first diagonal branch of the LAD which we did an FFR on it and that came in to be ischemic. As a matter of fact the iFR was ischemic 0.89. I did stenting of that diagonal. Also I did left heart catheterization. During the procedure the patient blood pressure continues to be elevated. She was short of breath and slightly wheezing. I did left heart catheterization and that showed severely elevated left-sided filling pressure at almost 30 mmHg. We gave the patient Lasix and replace a straight catheter and she dominant significant amount of urine. By the end of the procedure because a pressure continues to be elevated I did start the patient on nitro IV. By the end the procedure was completed without any complication SELECTIVE CORONARY ANGIOGRAM: The right coronary artery: Large-caliber vessel and a dominant vessel. The ostial RCA has intermediate lesion. There was dampening in the pressure waveform and because of that I did FFR on it and that came in to be nonischemic. The lesion was in the range of 50%. The mid and distal RCA appeared to be angiographically normal Left main: Has mild disease only. Bifurcates into LCx and LAD The left circumflex: Large caliber vessel nondominant vessel appears to have mild disease only. Gives rises into first and second OM branches appeared to be angiographically normal The left anterior descending artery: As caliber vessel was mild disease only. It gives rises into a large diagonal branch which has intermediate lesion appeared to be better than before but we did an FFR and that came in to be ischemic. HEMODYNAMICS: The LVEDP was a 30 mmHg was no significant gradient across aortic valve but there was mild gradient about 10 mmHg. PCI OF THE diagonal and FFR of the RCA Anticoagulation was initiated using heparin with continuous ACT monitoring throughout the case. I did engage the left main using JL4 guiding catheter. After zeroing the Doppler wire and before engaging the left main with the guid ing catheter and after normalization between the catheter and the wire we did iFR and that came in to be ischemic 0.89. At that point I did predilatation of the lesion using 2.0 mm balloon before I deployed 2.5 x 18 mm stent where the stent was positioned under fluoroscopy guidance and deployed under 10 dylan for 20 seconds. The following angiogram showed good angiographic results and the procedure was completed without any complication. Also regarding the right coronary artery after zeroing the Doppler wire and equalizing between the Doppler wire and the guiding catheter which was JR4 guiding catheter with also an iFR which came in to be nonischemic. At that point the procedure was completed without any complications CONCLUSION: 1. Intermediate lesion involving the first diagonal branch which is a large caliber vessel. FFR was ischemic. I did perform successful stenting of the first diagonal branch 2. Intermediate lesion involving the ostial RCA. FFR was performed and came in to be nonischemic. Medical treatment was advised 3. Severely elevated left-sided filling pressure POSTPROCEDURE MANAGEMENT: #1 dual antiplatelet therapy using aspirin and Plavix for at least 6 months and preferably year #2 aggressive cholesterol control #3 follow-up with the patient
[2022-09-11] MEDS ORDERED: SODIUM CHLORIDE 0.9% 1,000 ML in EMPTY BAG 1 BAG IV SCH (09:45)
[2022-09-11] MEDS ORDERED: lisinopriL 20 MG TAB PO STA (12:27)
[2022-09-11] MEDS ORDERED: cloNIDine 0.3 MG/24HR PATCH TRANSDERM SCH (12:30)
[2022-09-11] MEDS ORDERED: ACETAMINOPHEN TAB 325 MG TAB ONE (12:36)
[2022-09-11] MEDS ORDERED: hydrALAZINE HCL 20 MG/ML 1 ML VIAL IVP PRN (12:37)
[2022-09-11] MEDS: SODIUM CHLORIDE 0.9% 1,000 ML in EMPTY BAG 1 BAG IV SCH ×2 (13:32→13:36)
[2022-09-11] MEDS ORDERED: hydrALAZINE HCL 25 MG TAB PO SCH (16:00)
[2022-09-11 16:07] VITALS: BMI 53.9
[2022-09-11 16:21] LABS: Glucose,Whole Blood 158 mg/dL (70-110)
[2022-09-11] MEDS: hydrALAZINE HCL 25 MG TAB PO SCH ×2 (17:32→20:32)
[2022-09-11] MEDS: FUROSEMIDE 10 MG/ML 4 ML VIAL IV SCH (17:32)
[2022-09-11] MEDS: ACETAMINOPHEN TAB 325 MG TAB PO SCH (20:27)
[2022-09-11] MEDS: METOPROLOL SUCCINATE (ER) 50 MG TAB.ER.24H PO SCH (20:28)
[2022-09-11 20:29] LABS: Glucose,Whole Blood 124 mg/dL (70-110)
[2022-09-11] MEDS: levETIRAcetam ORAL SOLN 500 MG/5 ML CUP PO SCH (20:29)
[2022-09-11] MEDS ORDERED: ASPIRIN 81 MG PO SCH (21:00)
[2022-09-11] MEDS ORDERED: NON FORMULARY DRUG (Hydralazine Hcl [Apresoline] 100 MG Tablet) PO SCH (21:00)
[2022-09-11] MEDS ORDERED: lisinopriL 20 MG TAB PO SCH (21:00)
[2022-09-11] MEDS ORDERED: SPIRONOLACTONE 25 MG TAB PO SCH (21:00)
[2022-09-11] MEDS ORDERED: ATORVASTATIN 40 MG TAB PO SCH (21:00)
[2022-09-11] MEDS ORDERED: QUEtiapine 25 MG TAB PO SCH (21:00)
[2022-09-11] MEDS ORDERED: amLODIPine 10 MG TAB PO SCH (21:00)
[2022-09-12] MEDS: SODIUM CHLORIDE 0.9% 1,000 ML in EMPTY BAG 1 BAG IV SCH ×2 (00:04→09:33)
[2022-09-12] MEDS: FUROSEMIDE 10 MG/ML 4 ML VIAL IV SCH ×2 (00:16→09:38)
[2022-09-12 06:04] LABS: Glucose,Whole Blood 122 mg/dL (70-110)
[2022-09-12] MEDS ORDERED: CLOPIDOGREL 75 MG TAB PO SCH (09:00)
[2022-09-12] MEDS ORDERED: CHOLECALCIFEROL 125 MCG (5000 IU) TABLET PO SCH (09:00)
[2022-09-12] MEDS ORDERED: MULTIVITAMINS, THERA 1 EACH TAB PO SCH (09:00)
[2022-09-12] MEDS ORDERED: NON FORMULARY DRUG (Garlic [Garlic] 1,000 MG Capsule) PO SCH (09:00)
[2022-09-12] MEDS ORDERED: lisinopriL 20 MG TAB PO SCH ×2 (09:00)
[2022-09-12] MEDS: ACETAMINOPHEN TAB 325 MG TAB PO SCH (09:39)
[2022-09-12] MEDS: levETIRAcetam ORAL SOLN 500 MG/5 ML CUP PO SCH (09:39)
[2022-09-12] MEDS: hydrALAZINE HCL 25 MG TAB PO SCH (09:40)
[2022-09-12] MEDS: METOPROLOL SUCCINATE (ER) 50 MG TAB.ER.24H PO SCH (09:40)
[2022-09-12 10:58] VITALS: RESP 20
[2022-09-12 11:30] LABS: Basophils % (A) 0 %; Eosinophils # (A) 0.1 k/uL (0-0.7); Eosinophils % (A) 1 %; HCT 35.9 % (34.0-46.0); HGB 11.5 gm/dL (11.4-16.0); Hypochromasia Slight; Lymphocytes # (A) 2.3 k/uL (1.0-4.8); Lymphocytes % (A) 25 %; MCH 30.6 pg (25.0-35.0); MCV 95.8 fL (80.0-100.0); Mean Platelet Volume 7.7; Monocytes # (A) 0.5 k/uL (0-1.0); Monocytes % (A) 6 %; Neutrophils # (A) 6.1 k/uL (1.3-7.7); Neutrophils % (A) 67 %; Platelet Count 270 k/uL (150-450); RBC 3.75 m/uL (3.80-5.40); RDW 13.4 % (11.5-15.5); WBC 9.2 k/uL (3.8-10.6)
[2022-09-12 11:31] LABS: Glucose,Whole Blood 122 mg/dL (70-110)
[2022-09-12 11:48] LABS: Calcium 8.7 mg/dL (8.4-10.2); Potassium 3.5 mmol/L (3.5-5.1)
[2022-09-12 12:26] VITALS: BP 177/75; PULSE 61; TEMP 98.2
== END 2022-09-12 15:38 | disposition home or self-care (01) ==
LOC: CATHCVL 06:34 → 3SCARD 09:24 → CATHCVL 09-12 15:38
PROVIDERS: ATTEND Internal Medicine Interventional Cardiology
DX: I25.10 Atherosclerotic heart disease of native coronary artery without angina pectoris (principal); I10 Essential (primary) hypertension; E78.5 Hyperlipidemia, unspecified; I73.9 Peripheral vascular disease, unspecified; F17.210 Nicotine dependence, cigarettes, uncomplicated; E11.22 Type 2 diabetes mellitus with diabetic chronic kidney disease; I89.0 Lymphedema, not elsewhere classified; I65.23 Occlusion and stenosis of bilateral carotid arteries; Z82.49 Family history of ischemic heart disease and other diseases of the circulatory system; Z79.82 Long term (current) use of aspirin; Z79.899 Other long term (current) drug therapy
CPT/HCPCS: 93458; 93799; 80048; 85025; C9600; C1769 ×4; C1887 ×2; C1725; C1894 ×2; C1874; J2250; J0360; J1940 ×2; J2001; J3010; J1644; J1170; Q9967 ×2; J2270

== ENCOUNTER → 2022-10-16 | Outpatient (CLI) | payer MEDICARE ==
--- NOTE | 2022-10-17 04:09 | US ---
EXAMINATION TYPE: US venous doppler duplex LE DATE OF EXAM: 10/16/2022 2:45 PM COMPARISON: US 2017 TECHNIQUE: The lower extremity deep venous system is examined utilizing real time linear array sonog mercedez with graded compression, dop LOWER EXTREMITY VENOUS INSUFFICIENCY CLINICAL HISTORY: L97.812 Non-pressure ulcer of other part of rt low. Ulcer. Patient has left iliac s tent. SIDE PERFORMED: Bilateral 1) Color flow is present and patency is documented in the following vessels. No DVT or SVT is noted . Common Femoral Vein Deep Femoral Vein Femoral Vein Popliteal Vein Proximal Calf Veins Greater Saph Vein Upper Small Saph Vein 2) There is venous reflux noted at the following venous levels: Right Greater saphenous vein, right proximal popliteal vein, Anechoic area seen left popliteal fossa: 4.5 x 3.3 x 1.2 cm. Exam is limited due to patient body habitus. IMPRESSION: No ultrasound evidence for acute DVT in either lower extremity. Other finding as noted ab ove.
--- NOTE | 2022-10-17 06:25 | US ---
EXAMINATION TYPE: US arterial LE multi level DATE OF EXAM: 10/16/2022 4:14 PM CLINICAL HISTORY: L97.812 Non-pressure ulcer of other part of rt low. Left iliac stent 2006. Cardiac stents. Left pressures deferred above the ankle due to stent. Left brachial pressure deferred due to history of carotid stenosis, per patient. Limitations due to patient's body habitus and patient unabl e to lie flat History of: Smoker: previous Hypertension: yes Diabetic: yes Hyperlipidemia: yes TIA/CVA: yes Previous Vascular Surgery: see notes CAD: MD: yes Vascular Ulcers: right Claudication: Gangrene: Doppler Waveforms: Right: Monophasic Left: Monophasic Ankle-Brachial Indices: Right: n/a Left: n/a Toe Brachial Indices: Right: n/a Left: n/a IMPRESSION: Nondiagnostic study.
== END | disposition home or self-care (01) ==
LOC: RADUSWWP 13:03
PROVIDERS: ATTEND Nurse Practitioner Family
DX: L97.812 Non-pressure chronic ulcer of other part of right lower leg with fat layer exposed (principal); I87.2 Venous insufficiency (chronic) (peripheral)
CPT/HCPCS: 93923; 93970

== ENCOUNTER → 2023-01-24 | Outpatient (CLI) | payer MEDICARE ==
--- NOTE | 2023-01-25 10:50 | MR ---
EXAMINATION TYPE: MR foot LT wo con DATE OF EXAM: 01/24/2023 COMPARISON: None HISTORY: Left foot pain, swelling, limited movement and bruising. Standard multiplanar, multisequence MRI departmental protocol Multiplanar, multisequence images of the left foot were acquired without contrast. Diffusion weighted imaging was performed. FINDINGS: Prominence of the subcutaneous fat likely product of obesity. There is skin thickening with moderate to severe subcutaneous edema along the lateral malleolus and moderate subcutaneous edema in the medial malleolus. There is skin thickening and moderate to severe subcutaneous edema overlying t he dorsal lateral aspect of the midfoot. There is more mild subcutaneous edema along the plantar surf sindi near the calcaneus. No additional plantar surface subcutaneous edema. No well-formed fluid collec tion in the soft tissue is identified. Hindfoot structures show some mild to moderate narrowing and mild spurring at the calcaneal cuboid cristiana int. Normal sinus tarsi fat is seen. Achilles tendon appears within normal limits. No calcaneal spurr ing. There is narrowing of the ankle mortise. Talar dome fairly well preserved. Midfoot structures show moderate narrowing at the Lisfranc joints. Lisfranc joints are maintained. So me mild areas of edema in the distal navicular bone is identified. Mild spurring is seen. Some flexion in the toes is seen. There is hallux valgus positioning first metatarsophalangeal joint. There is moderate narrowing and mild/moderate spurring with subchondral cystic change at this level. The Oliveira's toe is seen. Some surrounding subcutaneous edema in the second toe is noted. No MRI evidence for fracture. No MRI evidence for significant osseous edema. No bony destruction. Mus eddie bulk is fairly well maintained. Tendons are grossly intact. IMPRESSION: Fairly moderate degenerative changes as detailed above. Areas of skin thickening and mode rate to severe subcutaneous edema noted as detailed above greatest along the dorsal lateral aspect of the midfoot. No well-formed fluid collection is present.
== END | disposition home or self-care (01) ==
LOC: RADMRIMAIN 10:06
PROVIDERS: ATTEND Family Medicine
DX: M19.072 Primary osteoarthritis, left ankle and foot (principal); R60.0 Localized edema

== ENCOUNTER 2023-04-24 12:09 | Emergency (ER) | payer MEDICARE ==
--- NOTE | 2023-04-24 13:01 | ED ---
General Adult HPI - General Chief complaint: Extremity Injury, Lower Stated complaint: Leg pain Time Seen by Provider: 04/24/23 12:33 Source: patient, RN notes reviewed, old records reviewed Mode of arrival: ambulatory Limitations: no limitations - History of Present Illness Initial comments: 68-year-old female presents to the emergency room with complaints of bilateral lower leg swelling and chronic wounds for several months. She states that she was seen by her primary care doctor last week and is scheduled to have a home wound care nurse come to the house but has not showed up. Patient also called Dr. Ellington and was seen in the office recently but cannot remember when. She denies any fevers. She is in the emergency room because the wound care nurse did not come to the house and feels as though she is getting worse. -: month(s) Location: left, right, lower extremity Severity scale (1-10): 7 Quality: constant Consistency: constant Associated Symptoms: denies other symptoms Treatments Prior to Arrival: other (PCP last week) - Related Data Home Medications Medication Instructions Recorded Confirmed QUEtiapine [SEROquel] 25 mg PO HS 11/11/16 09/11/22 carBAMazepine [carBAMazepine Susp] 5 ml PO BID 12/18/16 09/11/22 levETIRAcetam [Levetiracetam] 7.5 ml PO BID 02/10/17 09/11/22 Aspirin 81 mg PO HS 04/23/21 09/11/22 hydrALAZINE HCL [Apresoline] 100 mg PO BID 04/23/21 09/11/22 Acetaminophen [Tylenol 8 Hour] 650 mg PO BID 01/21/22 09/11/22 Atorvastatin [Lipitor] 40 mg PO HS 01/21/22 09/11/22 Cholecalciferol (Vitamin D3) 125 mcg PO DAILY 01/21/22 09/11/22 [Vitamin D3 (125 MCG = 5,000 IU)] Garlic 1,000 mg PO DAILY 01/21/22 09/11/22 Metoprolol Succinate (ER) [Toprol 50 mg PO BID 01/21/22 09/11/22 XL] Multivit-Min/Folic Acid/Biotin 133.3 mcg PO DAILY 01/21/22 09/11/22 [Hair, Skin and Nails Softgel] Spironolactone 25 mg PO HS 01/21/22 09/11/22 amLODIPine [Norvasc] 10 mg PO HS 01/21/22 09/11/22 Furosemide 10mg/Ml 1 ml PO DAILY PRN 05/08/22 09/11/22 Isosorbide Mononitrate ER [Imdur] 30 mg PO DAILY 05/08/22 09/11/22 cloNIDine 0.3 MG/24HR PATCH 1 patch TRANSDERM TU 05/08/22 09/11/22 [Catapres-TTS] Previous Rx's Medication Instructions Recorded Clopidogrel [Plavix] 75 mg PO DAILY #90 tab 09/12/22 Enalapril Maleate 40 mg PO BID #0 09/12/22 Furosemide [Lasix] 40 mg PO DAILY #90 tablet 09/12/22 Allergies Allergy/AdvReac Type Severity Reaction Status Date / Time cefdinir [From Omnicef] Allergy Rash/Hives Verified 04/24/23 12:25 colchicine Allergy Rash/Hives/ Verified 04/24/23 12:25 Nausea ezetimibe [From Zetia] Allergy Rash/Hives Verified 04/24/23 12:25 furosemide [From Lasix] Allergy heart Verified 04/24/23 12:25 palpitations w/pills, can take liquid Gadolinium-Containing Allergy Itching Verified 04/24/23 12:25 Contrast Medi hydrocodone Allergy Rash/Hives Verified 04/24/23 12:25 ibuprofen Allergy Itching Verified 04/24/23 12:25 Iodinated Contrast Media Allergy Rash/Hives, Verified 04/24/23 12:25 [Iodinated Contrast Media - itching,swe Oral and] lling loracarbef [From Lorabid] Allergy Rash/Hives Verified 04/24/23 12:25 morphine Allergy Rash/Hives Verified 04/24/23 12:25 Penicillins Allergy Unknown Verified 04/24/23 12:25 Childhood sulfamethoxazole Allergy Rash/Hives Verified 04/24/23 12:25 [From Septra] topiramate Allergy Unknown Verified 04/24/23 12:25 trimethoprim [From Septra] Allergy Rash/Hives Verified 04/24/23 12:25 albuterol AdvReac DRY THROAT Verified 04/24/23 12:25 atorvastatin [From Lipitor] AdvReac joint pain Verified 04/24/23 12:25 ipratropium AdvReac dry throat Verified 04/24/23 12:25 lovastatin AdvReac joint pain Verified 04/24/23 12:25 tiotropium AdvReac dry throat Verified 04/24/23 12:25 [From Spiriva with HandiHaler] tramadol AdvReac seizures Verified 04/24/23 12:25 mefix tape Allergy Rash/Hives Uncoded 09/11/22 06:49 Review of Systems ROS Statement: Those systems with pertinent positive or pertinent negative responses have been documented in the HPI. ROS Other: All systems not noted in ROS Statement are negative. Past Medical History Past Medical History: Asthma, COPD, CVA/TIA, Dementia, Diabetes Mellitus, Deep Vein Thrombosis (DVT), GERD/Reflux, Hearing Disorder / Deafness, Hyperlipidemia, Hypertension, Memory Impairment, Renal Disease, Seizure Disorder, Skin Disorder, Vascular Disorder Additional Past Medical History / Comment(s): fell & hit her head 04/2016 resulting in hematoma & subsequent stroke x2 with seizure, using cane currently & also still has trouble w/pills & food getting stuck @times, takes no meds for diabetes, rheumatic fever, heart murmur, deaf r ear, pvd, carotid stenosis, dvt r leg, short term memory impairment, LARGE LT GOITER, lymphedema right leg- wears stockings, has some weeping currently History of Any Multi-Drug Resistant Organisms: None Reported Past Surgical History: Adenoidectomy, Bariatric Surgery, Cholecystectomy, Heart Catheterization With Stent, Hysterectomy, Joint Replacement, Orthopedic Surgery, Tonsillectomy Additional Past Surgical History / Comment(s): mena. hip replacement, cervical fusion, lap band surgery , bilateral carpal tunnel, panniculectomy , l iliac stent, tubes in brain after fall and hematoma 05/10, rt carotid endardectomy, lt leg angioplasty balloon, colonoscopies, EGD, flexible sigmoidoscopy Past Anesthesia/Blood Transfusion Reactions: No Reported Reaction Date of Last Stent Placement:: not known by pt Past Psychological History: Anxiety, Depression Smoking Status: Former smoker Past Alcohol Use History: Rare Past Drug Use History: None Reported - Past Family History Sister(s) Family Medical History: Cancer, Coronary Artery Disease (CAD), Hyperlipidemia, Hypertension Additional Family Medical History / Comment(s): aneurysm, heart stents; 4 living sisters, uterine cancer Brother(s) Family Medical History: Hypertension, Myocardial Infarction ([place]) Additional Family Medical History / Comment(s): stents in legs, heart disease, carotid disease, triple bypass; 2 brother : heart disease; 1 brother living Mother Family Medical History: Coronary Artery Disease (CAD), Diabetes Mellitus Additional Family Medical History / Comment(s): Father Family Medical History: Coronary Artery Disease (CAD) Additional Family Medical History / Comment(s): General Exam Limitations: no limitations General appearance: alert, in no apparent distress Head exam: Present: atraumatic Eye exam: Absent: scleral icterus, conjunctival injection, periorbital swelling Respiratory exam: Absent: respiratory distress, accessory muscle use Cardiovascular Exam: Present: regular rate Neurological exam: Present: alert, oriented X3 Psychiatric exam: Present: normal affect, normal mood Skin exam: Present: warm, dry, normal color. Absent: cyanosis, diaphoretic, pallor Course Vital Signs 04/24/23 04/24/23 12:25 13:43 Temperature 98.9 F 97.4 F L Pulse Rate 72 74 Respiratory 18 18 Rate Blood Pressure 178/69 176/80 O2 Sat by Pulse 96 97 Oximetry Medical Decision Making - Medical Decision Making Was pt. sent in by a medical professional or institution (, PA, TRANSMISSION DESIGN ENGINEER, urgent care, hospital, or senior care...) When possible be specific @ -No Did you speak to anyone other than the patient for history (EMS, parent, family, police, friend...)? What history was obtained from this source @ -No Did you review nursing and triage notes (agree or disagree)? Why? @ -I reviewed and agree with nursing and triage notes Were old charts reviewed (outside hosp., previous admission, EMS record, old EKG, old radiological studies, urgent care reports/EKG's, senior care records)? Report findings @ -No old charts were reviewed Differential Diagnosis (chest pain, altered mental status, abdominal pain women, abdominal pain men, vaginal bleeding, weakness, fever, dyspnea, syncope, headache, dizziness, GI bleed, back pain, seizure, CVA, palpatations, mental health, musculoskeletal)? @ -Cellulitis, lymphedema, chronic venous stasis ulcers EKG interpreted by me (3pts min.). @ -n/a X-rays interpreted by me (1pt min.). @ -None done CT interpreted by me (1pt min.). @ -None done U/S interpreted by me (1pt. min.). @ -None done What testing was considered but not performed or refused? (CT, X-rays, U/S, labs)? Why? @ -None What meds were considered but not given or refused? Why? @ -None Did you discuss the management of the patient with other professionals (professionals i.e. DrKristy, PA, TRANSMISSION DESIGN ENGINEER, lab, RT, psych nurse, 7th grade social studies teacher, drier belt conveyor, teacher, radiation officer, case briefer)? Give summary @ -Amanda case management set up wound care for home Was smoking cessation discussed for >3mins.? @ -No Was critical care preformed (if so, how long)? @ -No Were there social determinants of health that impacted care today? How? (Homelessness, low income, unemployed, alcoholism, drug addiction, transportation, low edu. Level, literacy, decrease access to med. care, [place] [facility], rehab)? @ -No Was there de-escalation of care discussed even if they declined (Discuss DNR or withdrawal of care, Hospice)? DNR status @ -No What co-morbidities impacted this encounter? (DM, HTN, Smoking, COPD, CAD, Cancer, CVA, ARF, Chemo, Hep., AIDS, mental health diagnosis, sleep apnea, morbid obesity)? @ -Patient has history of asthma, COPD, CVA, dementia, diabetes, DVT, GERD, hyperlipidemia, hypertension, renal disease, seizure disorder, vascular disorder , anxiety, depression Was patient admitted / discharged? Hospital course, mention meds given and route, prescriptions, significant lab abnormalities, going to OR and other pertinent info. @ -Discharged 68-year-old female presents to the emergency room with complaints of bilateral lower leg swelling and chronic wounds for several months. She states that she w as seen by her primary care doctor last week and is scheduled to have a home wound care nurse come to the house but has not showed up. Patient also called Dr. Ellington and was seen in the office recently but cannot remember when. She denies any fevers. She is in the emergency room because the wound care nurse did not come to the house and feels as though she is getting worse. Patient states that she is here today to help her get wound care to come to the house. Bandages removed and there is evidence skin tear/abrasion to the posterior aspect of the left distal tibia-fibula. Swelling and bruising to the right lateral lower leg with no evidence of skin breakdown. Legs are swollen consistent with lymphedema, pink and warm and excessively dry with flaking skin. Patient states Dr. Salguero seen her last Thursday and prescribed her antibiotics which she has been taking twice a day. Denies any fevers. Case was discussed with case management Amanda who provided arrangement for wound care nurse to come to home. Patient agreeable to discharge. Case discussed with Dr. Farris. Undiagnosed new problem with uncertain prognosis? @ -No Drug Therapy requiring intensive monitoring for toxicity (Heparin, Nitro, Insulin, Cardizem)? @ -No Were any procedures done? @ -No Diagnosis/symptom? @ -Chronic venous stasis ulcers Acute, or Chronic, or Acute on Chronic? @ -chronic Uncomplicated (without systemic symptoms) or Complicated (systemic symptoms)? @ -Uncomplicated Side effects of treatment? @ -No Exacerbation, Progression, or Severe Exacerbation? @ -No Poses a threat to life or bodily function? How? (Chest pain, [place], [place], pneumonia, PE, COPD, DKA, ARF, appy, cholecystitis, CVA, Diverticulitis, Homicidal, Suicidal, threat to staff... and all critical care pts) @ -No Disposition Clinical Impression: Lymphedema of both lower extremities, Abrasion of left leg Disposition: HOME SELF-CARE Condition: Good Instructions (If sedation given, give patient instructions): Leg Edema (ED), Abrasion (ED), Lymphedema (ED), Venous Insufficiency (DC) Additional Instructions: Wound care will come to your home to help with your dressings. Continue the antibiotics as prescribed by your primary care doctor Is patient prescribed a controlled substance at d/c from ED?: No [facility]errals: [facility], [NON-STAFF] - 1-2 days [facility] [NON-STAFF] - 04/29/23 (Please call to confirm time and date of appointment. ) Florian Blackburn DO [Primary Care Provider] - 1-2 days Time of Disposition: 14:19
[2023-04-24 13:49] VITALS: TEMP 97.4
[2023-04-24] MEDS ORDERED: BACITRACIN OINT 1 EACH PACKET TOPICAL ONE (15:27)
[2023-04-24 15:52] VITALS: BP 187/67; PULSE 76; RESP 20
== END 2023-04-24 15:53 | disposition home or self-care (01) ==
LOC: EC 12:09
DX: S80.812A Abrasion, left lower leg, initial encounter (principal); I89.0 Lymphedema, not elsewhere classified; E11.51 Type 2 diabetes mellitus with diabetic peripheral angiopathy without gangrene; I10 Essential (primary) hypertension; E78.5 Hyperlipidemia, unspecified; J44.9 Chronic obstructive pulmonary disease, unspecified; G40.909 Epilepsy, unspecified, not intractable, without status epilepticus; F32.A Depression, unspecified; F41.9 Anxiety disorder, unspecified; Z87.891 Personal history of nicotine dependence; Z79.82 Long term (current) use of aspirin; Z79.899 Other long term (current) drug therapy; Z86.718 Personal history of other venous thrombosis and embolism; Z88.0 Allergy status to penicillin; Z88.1 Allergy status to other antibiotic agents; Z88.2 Allergy status to sulfonamides; Z88.5 Allergy status to narcotic agent; Z91.041 Radiographic dye allergy status; Z88.8 Allergy status to other drugs, medicaments and biological substances; X58.XXXA Exposure to other specified factors, initial encounter
CPT/HCPCS: 99283

== ENCOUNTER 2023-12-25 21:52 | Emergency (ER) | payer MEDICARE ==
[2023-12-25 22:20] VITALS: TEMP 98
--- NOTE | 2023-12-25 22:30 | ED ---
URI HPI - General Source: patient, RN notes reviewed Mode of arrival: wheelchair Limitations: no limitations <Alexandria Amos - Last Filed: 12/25/23 22:30> <Pankaj Stoner - Last Filed: 12/26/23 04:33> <Jerome Chandler - Last Filed: 12/26/23 05:07> - General Chief Complaint: Upper Respiratory Infection Stated Complaint: SALTY TASTE IN MOUTH,THROAT PAIN,HEADACHE Time Seen by Provider: 12/25/23 22:30 - History of Present Illness Initial Comments: Patient is 68-year-old female presented ER with chief complaint of cough and congestion. Patient states for the past week. (Alexandria Amos) 68-year-old female with past medical history significant for COPD presenting to the ED with chief complaint of cough. Patient states she has had an ongoing cough and congestion for the past week. Patient also does note some chest pain in the middle of her chest however notes that this has been an ongoing issue however with cough this seems to have been worsening more than usual. Does note some associated shortness of breath with this as well. No fever. No abdominal pain. No changes in bowel or bladder habits no other complaints at this time. (Pankaj Stoner) - Related Data Home Medications Medication Instructions Recorded Confirmed QUEtiapine [SEROquel] 25 mg PO HS 11/11/16 09/11/22 carBAMazepine [carBAMazepine Susp] 5 ml PO BID 12/18/16 09/11/22 levETIRAcetam [Levetiracetam] 7.5 ml PO BID 02/10/17 09/11/22 Aspirin 81 mg PO HS 04/23/21 09/11/22 hydrALAZINE HCL [Apresoline] 100 mg PO BID 04/23/21 09/11/22 Acetaminophen [Tylenol 8 Hour] 650 mg PO BID 01/21/22 09/11/22 Atorvastatin [Lipitor] 40 mg PO HS 01/21/22 09/11/22 Cholecalciferol (Vitamin D3) 125 mcg PO DAILY 01/21/22 09/11/22 [Vitamin D3 (125 MCG = 5,000 IU)] Garlic 1,000 mg PO DAILY 01/21/22 09/11/22 Metoprolol Succinate (ER) [Toprol 50 mg PO BID 01/21/22 09/11/22 XL] Multivit-Min/Folic Acid/Biotin 133.3 mcg PO DAILY 01/21/22 09/11/22 [Hair, Skin and Nails Softgel] Spironolactone 25 mg PO HS 01/21/22 09/11/22 amLODIPine [Norvasc] 10 mg PO HS 01/21/22 09/11/22 Furosemide 10mg/Ml 1 ml PO DAILY PRN 05/08/22 09/11/22 Isosorbide Mononitrate ER [Imdur] 30 mg PO DAILY 05/08/22 09/11/22 cloNIDine 0.3 MG/24HR PATCH 1 patch TRANSDERM TU 05/08/22 09/11/22 [Catapres-TTS] Previous Rx's Medication Instructions Recorded Clopidogrel [Plavix] 75 mg PO DAILY #90 tab 09/12/22 Enalapril Maleate 40 mg PO BID #0 09/12/22 Furosemide [Lasix] 40 mg PO DAILY #90 tablet 09/12/22 Azithromycin [Zithromax] 250 mg PO DAILY 4 Days #4 tab 12/26/23 predniSONE [Deltasone] 40 mg PO DAILY 5 Days #10 tab 12/26/23 Allergies Allergy/AdvReac Type Severity Reaction Status Date / Time cefdinir [From Omnicef] Allergy Rash/Hives Verified 12/25/23 22:19 colchicine Allergy Rash/Hives/ Verified 12/25/23 22:19 Nausea ezetimibe [From Zetia] Allergy Rash/Hives Verified 12/25/23 22:19 furosemide [From Lasix] Allergy heart Verified 12/25/23 22:19 palpitations w/pills, can take liquid Gadolinium-Containing Allergy Itching Verified 12/25/23 22:19 Contrast Medi hydrocodone Allergy Rash/Hives Verified 12/25/23 22:19 ibuprofen Allergy Itching Verified 12/25/23 22:19 Iodinated Contrast Media Allergy Rash/Hives, Verified 12/25/23 22:19 [Iodinated Contrast Media - itching,swe Oral and] lling loracarbef [From Lorabid] Allergy Rash/Hives Verified 12/25/23 22:19 morphine Allergy Rash/Hives Verified 12/25/23 22:19 Penicillins Allergy Unknown Verified 12/25/23 22:19 Childhood sulfamethoxazole Allergy Rash/Hives Verified 12/25/23 22:19 [From Septra] topiramate Allergy Unknown Verified 12/25/23 22:19 trimethoprim [From Septra] Allergy Rash/Hives Verified 12/25/23 22:19 albuterol AdvReac DRY THROAT Verified 12/25/23 22:19 atorvastatin [From Lipitor] AdvReac joint pain Verified 12/25/23 22:19 ipratropium AdvReac dry throat Verified 12/25/23 22:19 lovastatin AdvReac joint pain Verified 12/25/23 22:19 tiotropium AdvReac dry throat Verified 12/25/23 22:19 [From Spiriva with HandiHaler] tramadol AdvReac seizures Verified 12/25/23 22:19 mefix tape Allergy Rash/Hives Uncoded 12/25/23 22:19 Review of Systems ROS Other: All systems not noted in ROS Statement are negative. <Alexandria Amos - Last Filed: 12/25/23 22:30> ROS Other: All systems not noted in ROS Statement are negative. <Pankaj Stoner - Last Filed: 12/26/23 04:33> ROS Other: All systems not noted in ROS Statement are negative. <Jerome Chandler - Last Filed: 12/26/23 05:07> ROS Statement: Those systems with pertinent positive or pertinent negative responses have been documented in the HPI. Past Medical History Past Medical History: Asthma, COPD, CVA/TIA, Dementia, Diabetes Mellitus, Deep Vein Thrombosis (DVT), GERD/Reflux, Hearing Disorder / Deafness, Hyperlipidemia, Hypertension, Memory Impairment, Renal Disease, Seizure Disorder, Skin Disorder, Vascular Disorder Additional Past Medical History / Comment(s): fell & hit her head 04/2016 re sulting in hematoma & subsequent stroke x2 with seizure, using cane currently & also still has trouble w/pills & food getting stuck @times, takes no meds for diabetes, rheumatic fever, heart murmur, deaf r ear, pvd, carotid stenosis, dvt r leg, short term memory impairment, LARGE LT GOITER, lymphedema right leg- wears stockings, has some weeping currently History of Any Multi-Drug Resistant Organisms: None Reported Past Surgical History: Adenoidectomy, Bariatric Surgery, Cholecystectomy, Heart Catheterization With Stent, Hysterectomy, Joint Replacement, Orthopedic Surgery, Tonsillectomy Additional Past Surgical History / Comment(s): mena. hip replacement, cervical fusion, lap band surgery , bilateral carpal tunnel, panniculectomy , l iliac stent, tubes in brain after fall and hematoma 05/10, rt carotid endardectomy, lt leg angioplasty balloon, colonoscopies, EGD, flexible sigmoidoscopy Past Anesthesia/Blood Transfusion Reactions: No Reported Reaction Date of Last Stent Placement:: not known by pt Past Psychological History: Anxiety, Depression Smoking Status: Former smoker Past Alcohol Use History: Rare Past Drug Use History: None Reported - Past Family History Sister(s) Family Medical History: Cancer, Coronary Artery Disease (CAD), Hyperlipidemia, Hypertension Additional Family Medical History / Comment(s): aneurysm, heart stents; 4 living sisters, uterine cancer Brother(s) Family Medical History: Hypertension, Myocardial Infarction ([place]) Additional Family Medical History / Comment(s): stents in legs, heart disease, carotid disease, triple bypass; 2 brother : heart disease; 1 brother living Mother Family Medical History: Coronary Artery Disease (CAD), Diabetes Mellitus Additional Family Medical History / Comment(s): Father Family Medical History: Coronary Artery Disease (CAD) Additional Family Medical History / Comment(s): <Alexandria Amos - Last Filed: 12/25/23 22:30> General Exam Limitations: no limitations <Alexandria Amos - Last Filed: 12/25/23 22:30> General appearance: alert, in no apparent distress Eye exam: Present: normal appearance Neck exam: Present: normal inspection Respiratory exam: Present: normal lung sounds bilaterally (Limited secondary to poor effort however lungs do sound clear bilaterally) Cardiovascular Exam: Present: regular rate, systolic murmur GI/Abdominal exam: Present: soft Neurological exam: Present: alert, oriented X3 Skin exam: Present: warm, dry <Pankaj Stoner - Last Filed: 12/26/23 04:33> - General Exam Comments Initial Comments: Visual Physical Exam Vital signs reviewed General: Well-appearing, nontoxic, no acute distress. Head: Normocephalic, atraumatic Eyes: PERRLA, EOMI ENT: Airway patent Chest: Nonlabored breathing Skin: No visual rash, normal skin tone Neuro: Alert and oriented 3 Musculoskeletal: No gross abnormalities (Alexandria Amos) Course Vital Signs 12/25/23 12/26/23 12/26/23 22:18 00:58 02:10 Temperature 98 F Pulse Rate 75 69 64 Respiratory 18 18 13 Rate Blood Pressure 189/65 193/76 191/80 O2 Sat by Pulse 98 95 96 Oximetry 12/26/23 12/26/23 12/26/23 03:10 03:15 04:06 Temperature Pulse Rate 64 66 84 Respiratory 17 Rate Blood Pressure 199/86 O2 Sat by Pulse 96 Oximetry 12/26/23 04:54 Temperature Pulse Rate 71 Respiratory 12 Rate Blood Pressure 193/60 O2 Sat by Pulse 96 Oximetry Medical Decision Making <Alexandria Amos - Last Filed: 12/25/23 22:30> - Lab Data Result diagrams: 12/26/23 01:54 12/26/23 03:57 <Pankaj Stoner - Last Filed: 12/26/23 04:33> - Lab Data Result diagrams: 12/26/23 01:54 12/26/23 03:57 <Jerome Chandler - Last Filed: 12/26/23 05:07> - Medical Decision Making I performed the quick note portion of the exam. Electronically signed by Alexandria Amos PA-C (Alexandria Amos) Was pt. sent in by a medical professional or institution (DIONICIO Cabral, CONTOUR PATH TAPE MILL OPERATOR, urgent care, hospital, or senior care...) When possible be specific @ -No Did you speak to anyone other than the patient for history (EMS, parent, family, police, friend...)? What history was obtained from this source @ -No Did you review nursing and triage notes (agree or disagree)? Why? @ -I reviewed and agree with nursing and triage notes Were old charts reviewed (outside hosp., previous admission, EMS record, old EKG, old radiological studies, urgent care reports/EKG's, senior care records)? Report findings @ -No old charts were reviewed Differential Diagnosis (chest pain, altered mental status, abdominal pain women, abdominal pain men, vaginal bleeding, weakness, fever, dyspnea, syncope, headache, dizziness, GI bleed, back pain, seizure, CVA, palpatations, mental health, musculoskeletal)? @ -Differential Dyspnea: Coronary syndrome, arrhythmia, tamponade, asthma, COPD, pulmonary embolism, pneumonia, pneumothorax, pulmonary effusion, anaphylaxis, diabetic ketoacidosis, flailed chest, pulmonary contusion, diaphragmatic rupture, anemia, neuromuscular, this is not meant to be an all-inclusive list. EKG interpreted by me (3pts min.). @ -EKG interpreted me showing a normal sinus rhythm at [address] or T wave changes. PA 149, QRS 82, QT/QTc 378/396. X-rays interpreted by me (1pt min.). @ -Chest x-ray interpreted by me showing no evidence of acute finding CT interpreted by me (1pt min.). @ -None done U/S interpreted by me (1pt. min.). @ -None done What testing was considered but not performed or refused? (CT, X-rays, U/S, labs)? Why? @ -None What meds were considered but not given or refused? Why? @ -None Did you discuss the management of the patient with other professionals (professionals i.e. , PA, CONTOUR PATH TAPE MILL OPERATOR, lab, RT, psych nurse, renal social worker, die sinker, teacher, telecommunications officer, spring encaser)? Give summary @ -No Was smoking cessation discussed for >3mins.? @ -No Was critical care preformed (if so, how long)? @ -No Were there social determinants of health that impacted care today? How? (Homelessness, low income, unemployed, alcoholism, drug addiction, transportation, low edu. Level, literacy, decrease access to med. care, group home, rehab)? @ -No Was there de-escalation of care discussed even if they declined (Discuss DNR or withdrawal of care, Hospice)? DNR status @ -No What co-morbidities impacted this encounter? (DM, HTN, Smoking, COPD, CAD, Cancer, CVA, ARF, Chemo, Hep., AIDS, mental health diagnosis, sleep apnea, morbi d obesity)? @ -COPD Was patient admitted / discharged? Hospital course, mention meds given and route, prescriptions, significant lab abnormalities, going to OR and other pert inent info. @ -Pending 68-year-old female presenting to the ED with complaints of cough, congestion, worsening chest pain over the past week. Patient was provided a breathing treatment here with improvement of dyspnea. Also provided some steroids as well. Case signed out to my attending physician, Dr. Chandler, for further disposition as laboratory studies are still pending at this time. (Pankaj Stoner) Patient signed out to me pending results of workup. Briefly, originally seen as a quick note and then seen by my PA. Has been having congestion, cough for 1 week as well as chronic chest discomfort when coughing. Pain is not acute howev er it is chronic. Seems to be more frequent with the more frequent coughing. Denies any fevers, chills. Denies any sick contacts. Has a history of COPD and asthma. Presents for further evaluation at this time. On my exam, patient initially presented mildly wheezy but is doing improved at this time. Chest x-ray so far showed no obvious acute cardiopulmonary process. EKG unremarkable. Basic labs were obtained. These were remarkable for chronic anemia. Troponin undetectable. Viral swabs negative. I discussed results with the patient. She is resting comfortably at this time. She will be discharged home at this time. Diagnosis is COPD. She will be started on azithromycin as well as prednisone. She has breathing treatments at home. Patient was in agreement this plan. I will provide the patient with a prescription for prednisone, azithromycin. I instructed the patient to follow up with their PCP in the next 1-3 days.. I explained that the patient should return to the emergency department if they experience any worsening symptoms. Strict return precautions were discussed with the patient. The patient expressed understanding of these instructions. I answered all questions that the patient had. The patient was discharged home in good condition with their prescriptions and follow up information. Diagnosis/symptom? @ -COPD Acute, or Chronic, or Acute on Chronic? @ -Acute on chronic Uncomplicated (without systemic symptoms) or Complicated (systemic symptoms)? @ -Complicated Side effects of treatment? @ -None Exacerbation, Progression, or Severe Exacerbation] @ -Exacerbation Poses a threat to life or bodily function? @ -Unlikely (Jerome Chandler) - Lab Data Lab Results 12/25/23 12/26/23 12/26/23 Range/Units 22:20 01:54 01:54 WBC 10.4 (3.8-10.6) k/uL RBC 3.54 L (3.80-5.40) m/uL Hgb 10.8 L (11.4-16.0) gm/dL Hct 33.5 L (34.0-46.0) % MCV 94.6 (80.0-100.0) fL MCH 30.4 (25.0-35.0) pg MCHC 32.1 (31.0-37.0) g/dL RDW 13.8 (11.5-15.5) % Plt Count 303 (150-450) k/uL MPV 8.3 Neutrophils % 62 % Lymphocytes % 26 % Monocytes % 5 % Eosinophils % 4 % Basophils % 1 % Neutrophils # 6.4 (1.3-7.7) k/uL Lymphocytes # 2.7 (1.0-4.8) k/uL Monocytes # 0.6 (0-1.0) k/uL Eosinophils # 0.5 (0-0.7) k/uL Basophils # 0.1 (0-0.2) k/uL PT 10.1 (10.0-12.5) sec INR 0.9 (<1.2) APTT 23.8 (22.0-30.0) sec Sodium (137-145) mmol/L Potassium (3.5-5.1) mmol/L Chloride (98-107) mmol/L Carbon Dioxide (22-30) mmol/L Anion Gap mmol/L BUN (7-17) mg/dL Creatinine (0.52-1.04) mg/dL Est GFR (CKD-EPI)AfAm (>60 ml/min/1.73 sqM) Est GFR (CKD-EPI)NonAf (>60 ml/min/1.73 sqM) Glucose (74-99) mg/dL Calcium (8.4-10.2) mg/dL Magnesium (1.6-2.3) mg/dL Total Bilirubin (0.2-1.3) mg/dL AST (14-36) U/L ALT (4-34) U/L Alkaline Phosphatase (38-126) U/L Troponin I (0.000-0.034) ng/mL Total Protein (6.3-8.2) g/dL Albumin (3.5-5.0) g/dL Influenza Type A (PCR) Not Detected (Not Detectd) Influenza Type B (PCR) Not Detected (Not Detectd) RSV (PCR) Not Detected (Not Detectd) SARS-CoV-2 (PCR) Not Detected (Not Detectd) 03/02/24 03/02/24 Range/Units 03:57 03:57 WBC (3.8-10.6) k/uL RBC (3.80-5.40) m/uL Hgb (11.4-16.0) gm/dL Hct (34.0-46.0) % MCV (80.0-100.0) fL MCH (25.0-35.0) pg MCHC (31.0-37.0) g/dL RDW (11.5-15.5) % Plt Count (150-450) k/uL MPV Neutrophils % % Lymphocytes % % Monocytes % % Eosinophils % % Basophils % % Neutrophils # (1.3-7.7) k/uL Lymphocytes # (1.0-4.8) k/uL Monocytes # (0-1.0) k/uL Eosinophils # (0-0.7) k/uL Basophils # (0-0.2) k/uL PT (10.0-12.5) sec INR (<1.2) APTT (22.0-30.0) sec Sodium 143 (137-145) mmol/L Potassium 4.7 (3.5-5.1) mmol/L Chloride 115 H (98-107) mmol/L Carbon Dioxide 21 L (22-30) mmol/L Anion Gap 7 mmol/L BUN 27 H (7-17) mg/dL Creatinine 1.08 H (0.52-1.04) mg/dL Est GFR (CKD-EPI)AfAm 61 (>60 ml/min/1.73 sqM) Est GFR (CKD-EPI)NonAf 53 (>60 ml/min/1.73 sqM) Glucose 114 H (74-99) mg/dL Calcium 9.7 (8.4-10.2) mg/dL Magnesium 1.8 (1.6-2.3) mg/dL Total Bilirubin 0.5 (0.2-1.3) mg/dL AST 18 (14-36) U/L ALT 10 (4-34) U/L Alkaline Phosphatase 78 (38-126) U/L Troponin I <0.012 (0.000-0.034) ng/mL Total Protein 7.1 (6.3-8.2) g/dL Albumin 4.2 (3.5-5.0) g/dL Influenza Type A (PCR) (Not Detectd) Influenza Type B (PCR) (Not Detectd) RSV (PCR) (Not Detectd) SARS-CoV-2 (PCR) (Not Detectd) Disposition <Alexandria Amos - Last Filed: 12/25/23 22:30> <Pankaj Stoner - Last Filed: 12/26/23 04:33> Is patient prescribed a controlled substance at d/c from ED?: No Time of Disposition: 05:00 <Jerome Chandler - Last Filed: 12/26/23 05:07> Clinical Impression: COPD (chronic obstructive pulmonary disease) Disposition: HOME SELF-CARE Condition: Good Instructions (If sedation given, give patient instructions): COPD (Chronic Obstructive Pulmonary Disease) (ED) Prescriptions: predniSONE [Deltasone] 40 mg PO DAILY 5 Days #10 tab Azithromycin [Zithromax] 250 mg PO DAILY 4 Days #4 tab Referrals: None,Stated [Primary Care Provider] - 1-2 days
--- NOTE | 2023-12-25 23:20 | XR ---
EXAM: XR Chest, 2 Views CLINICAL HISTORY: ITS.REASON XR Reason: cough TECHNIQUE: Frontal and lateral views of the chest. COMPARISON: 05/08/22 FINDINGS: Lungs: No airspace consolidation. Pleural space: Unremarkable. No pleural effusion or pneumothorax. Heart: Stable cardiomegaly. No vascular congestion. Bones/joints: No acute fracture. No dislocation. IMPRESSION: No acute findings in the chest.
[2023-12-26 02:52] LABS: Basophils # (A) 0.1 k/uL (0-0.2); Basophils % (A) 1 %; Eosinophils # (A) 0.5 k/uL (0-0.7); Eosinophils % (A) 4 %; HCT 33.5 % (34.0-46.0); HGB 10.8 gm/dL (11.4-16.0); Lymphocytes # (A) 2.7 k/uL (1.0-4.8); Lymphocytes % (A) 26 %; MCH 30.4 pg (25.0-35.0); MCHC 32.1 g/dL (31.0-37.0); MCV 94.6 fL (80.0-100.0); Mean Platelet Volume 8.3; Monocytes # (A) 0.6 k/uL (0-1.0); Monocytes % (A) 5 %; Neutrophils # (A) 6.4 k/uL (1.3-7.7); Neutrophils % (A) 62 %; Platelet Count 303 k/uL (150-450); RBC 3.54 m/uL (3.80-5.40); RDW 13.8 % (11.5-15.5); WBC 10.4 k/uL (3.8-10.6)
[2023-12-26 03:03] LABS: INR 0.9 (<1.2); Partial Thromboplastin Time 23.8 sec (22.0-30.0); Prothrombin Time 10.1 sec (10.0-12.5)
[2023-12-26] MEDS: IPRATROPIUM-ALBUTEROL 3 ML NEB INHALATION STA (03:08)
[2023-12-26] MEDS: methylPREDNISolone SOD SUCCI 125 MG/2 ML VIAL IV STA (04:02)
[2023-12-26] MEDS: hydrALAZINE HCL 20 MG/ML 1 ML VIAL IVP STA (04:04)
[2023-12-26 04:28] LABS: ALT 10 U/L (4-34); AST 18 U/L (14-36); African American GFR (CKD) 61 (>60 ml/min/1.73 sqM); Albumin 4.2 g/dL (3.5-5.0); Alkaline Phosphatase 78 U/L (38-126); Anion Gap 7 mmol/L; Blood Urea Nitrogen 27 mg/dL (7-17); Calcium 9.7 mg/dL (8.4-10.2); Carbon Dioxide 21 mmol/L (22-30); Chloride 115 mmol/L (98-107); Glucose 114 mg/dL (74-99); Magnesium 1.8 mg/dL (1.6-2.3); Non-African American GFR(CKD) 53 (>60 ml/min/1.73 sqM); Potassium 4.7 mmol/L (3.5-5.1); Sodium 143 mmol/L (137-145); Total Bilirubin 0.5 mg/dL (0.2-1.3); Total Protein 7.1 g/dL (6.3-8.2)
[2023-12-26 05:00] VITALS: BP 193/60; PULSE 71; RESP 12
[2023-12-26] MEDS: AZITHROMYCIN 500 MG TAB PO STA (05:08)
== END 2023-12-26 05:14 | disposition home or self-care (01) ==
LOC: EC 21:52
DX: J44.9 Chronic obstructive pulmonary disease, unspecified (principal); E11.9 Type 2 diabetes mellitus without complications; I10 Essential (primary) hypertension; E78.5 Hyperlipidemia, unspecified; Z79.899 Other long term (current) drug therapy; F41.9 Anxiety disorder, unspecified; F32.A Depression, unspecified; Z87.891 Personal history of nicotine dependence; Z79.82 Long term (current) use of aspirin; Z88.5 Allergy status to narcotic agent; Z88.6 Allergy status to analgesic agent; Z88.0 Allergy status to penicillin; Z91.09 Other allergy status, other than to drugs and biological substances; Z88.8 Allergy status to other drugs, medicaments and biological substances; Z88.2 Allergy status to sulfonamides; Z20.822 Contact with and (suspected) exposure to COVID-19; Z88.1 Allergy status to other antibiotic agents; Z91.041 Radiographic dye allergy status
CPT/HCPCS: 36415; 94640; 93005; 80053; 83735; 84484; 85025; 85610; 85730; 87636; 71046; 99284; 96374; 96375; J0360; J2930

== ENCOUNTER 2024-02-22 07:12 | Day surgery (SDC) | payer MEDICARE ==
[2024-02-18 16:12] VITALS: BMI 54.6
[~2024-02-22 07:12] MED LIST changes: -ALPRAZolam 0.5 MG TAB PO PRN; +ASPIRIN 325 MG TAB PO ONE; -ASPIRIN 325 MG TAB PO STA; -ATORVASTATIN 80 MG TAB PO STA; +HEPARIN SODIUM,PORCINE (1 ML) 2,500 UNIT in SODIUM CHLORIDE 0.9% 250 ML IRRIGATION PRN; -HEPARIN SODIUM,PORCINE 2,500 UNIT in SODIUM CHLORIDE 0.9% 250 ML IRRIGATION PRN
[2024-02-22 07:46] VITALS: RESP 18; TEMP 98.3
[2024-02-22] MEDS: SODIUM CHLORIDE 0.9% 1,000 ML in EMPTY BAG 1 BAG IV SCH (07:48)
[2024-02-22] MEDS: ALPRAZolam 0.5 MG TAB PO PRN (07:51)
[2024-02-22 07:52] LABS: Glucose,Whole Blood 154 mg/dL (70-110)
[2024-02-22 07:58] LABS: Basophils % (A) 0 %; Eosinophils % (A) 1 %; HCT 36.8 % (34.0-46.0); HGB 11.3 gm/dL (11.4-16.0); Lymphocytes # (A) 1.1 k/uL (1.0-4.8); Lymphocytes % (A) 14 %; MCH 29.4 pg (25.0-35.0); MCHC 30.8 g/dL (31.0-37.0); MCV 95.5 fL (80.0-100.0); Mean Platelet Volume 8.1; Monocytes # (A) 0.2 k/uL (0-1.0); Monocytes % (A) 2 %; Neutrophils # (A) 6.6 k/uL (1.3-7.7); Neutrophils % (A) 83 %; Platelet Count 305 k/uL (150-450); RBC 3.85 m/uL (3.80-5.40); RDW 14.2 % (11.5-15.5)
[2024-02-22 08:18] LABS: African American GFR (CKD) 64 (>60 ml/min/1.73 sqM); Anion Gap 13 mmol/L; Blood Urea Nitrogen 28 mg/dL (7-17); Calcium 9.8 mg/dL (8.4-10.2); Carbon Dioxide 15 mmol/L (22-30); Chloride 111 mmol/L (98-107); Glucose 149 mg/dL (74-99); Non-African American GFR(CKD) 55 (>60 ml/min/1.73 sqM); Potassium 5.4 mmol/L (3.5-5.1); Sodium 139 mmol/L (137-145)
[2024-02-22] MEDS ORDERED: fentaNYL (PF) 50 MCG/ML 2 ML AMP ONE (09:45)
[2024-02-22] MEDS: BENZOCAINE SPRAY 1 CAN MUCOUS MEM ONE (09:48)
[2024-02-22] MEDS: MIDAZOLAM 2 MG/2 ML VIAL IVP ONE ×2 (09:51→09:54)
[2024-02-22] MEDS: fentaNYL (PF) 50 MCG/1 ML VIAL IVP ONE (09:51)
[2024-02-22] MEDS: LIDOCAINE 1% INJ 10MG/ML (30 ML VIAL-PF) SQ ONE (10:11)
[2024-02-22] MEDS: IOPAMIDOL-370 100ML BTL INJ ONE (10:35)
[2024-02-22] MEDS ORDERED: RX INFO: IV CONTRAST WAS GIVEN 1 EACH MISC MISCELLANE PRN (10:36)
--- NOTE | 2024-02-22 10:39 | P.PCN ---
Date of Procedure: 02/22/24 Operative Findings: TRANSESOPHAGEAL ECHOCARDIOGRAM CHEMICAL MAKER: SAVANNAH BROOKE MD, RPVI INDICATION: Mitral regurgitation SEDATION: Conscious sedation COMPLICATION: None LEVEL OF SEDATION Moderate with sedation length of 16 minutes PROCEDURE DESCRIPTION: After obtaining an informed consent, the patient was brought to transesophageal echocardiogram room. Pulse oximetry and heart monitors were attached to the patient. The patient throat was sprayed using lidocaine. The patient was turned into left lateral position. After that a bite guard was placed. After an appropriate conscious sedation was initiated, the transesophageal echocardiogram was advanced through a bite guard into the mid esophagus. A 2-D echocardiogram images, color Doppler images, continuous wave images, pulse-wave images, of various cardiac structure were performed. After that the transesophageal echocardiogram probe was advanced into the stomach and fixed to obtain transgastric view was. The probe was brought into the mid esophagus. Inter-atrial septum was interrogated using 2D images, color Doppler images, and then contrast study. After that transesophageal echocardiogram was withdrawn out and upon withdrawing the descending thoracic aorta all the way up to the arch was evaluated. CONCLUSION: 1. 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 Normal left ventricular dimension and systolic function 3. Normal right ventricular dimensions and systolic function 4. Severe biatrial enlargement 5. Aortic sclerosis with no stenosis or insufficiency 6. Moderate tricuspid regurgitation
--- NOTE | 2024-02-22 10:42 | P.PCN ---
Date of Procedure: 02/22/24 Operative Findings: CARDIAC CATHETERIZATION PERFORMING PHYSICIAN: Ahmet Bruno MD, RPVI PROCEDURE PERFORMED: 1. Selective right and left coronary angiogram 2. Left heart catheterization 3. Ultrasound-guided access of the right common femoral artery 4. Right common femoral artery angiogram INDICATION: Valvular heart disease COMPLICATION: None APPROACH: Right common femoral artery LEVEL OF SEDATION: Moderate with sedation in length of 20 minutes PROCEDURE DESCRIPTION: After obtaining an informed consent, the patient was brought to cardiac laborer shaft sinking. Local anesthesia was performed using lidocaine subcutaneously. The right common femoral artery was cannulated using Seldinger technique, under ultrasound guidance, the guidewire passed easily, following that we advanced a 6 Barbadian sheath dilator assembly, the wire and dilator were removed and sheath was flushed. Selective right and left coronary angiogram using a 6-Barbadian JR4 and JL catheters. Following that we did left heart catheterization using 6-Barbadian pigtail catheter. The procedure was completed there was no complication. SELECTIVE CORONARY ANGIOGRAM: The right coronary artery: Large-caliber vessel and a dominant vessel with severe disease involving the midportion of the RCA Left main: Is angiographically normal The left circumflex: Large caliber vessel and nondominant vessel with mild disease only and gives rise into a large obtuse marginal branch which trifurcates into 3 subbranches The left anterior descending artery: Large-caliber vessel. The LAD proximally appears to have mild disease only. Gives rise into a diagonal branch which is stented and the stent is patent. The mid and distal LAD appeared to have mild to moderate disease with no high-grade stenosis HEMODYNAMICS: LVEDP was 5 mmHg with no significant gradient across aortic valve CONCLUSION: 1. Severe disease involving the mid RCA 2. Patent stent in the first diagonal branch of the LAD 3. Normal left-sided filling pressure POSTPROCEDURE MANAGEMENT: Evaluate the patient for mitral valve repair/replacement with coronary artery bypass at the same time
[2024-02-22] MEDS ORDERED: SODIUM CHLORIDE 0.9% 1,000 ML IV SCH (10:45)
[2024-02-22] MEDS ORDERED: hydrALAZINE HCL 20 MG/ML 1 ML VIAL ONE (10:53)
[2024-02-22] MEDS ORDERED: hydrALAZINE HCL 20 MG/ML 1 ML VIAL IVP STA ×2 (11:01→11:24)
[2024-02-22] MEDS ORDERED: ENALAPRILAT 1.25 MG/ML 1 ML VIAL IVP STA (11:24)
[2024-02-22] MEDS ORDERED: ENALAPRILAT 1.25 MG/ML 1 ML VIAL ONE (11:25)
[2024-02-22] MEDS ORDERED: ACETAMINOPHEN TAB 325 MG TAB PO PRN (13:22)
[2024-02-22] MEDS ORDERED: ACETAMINOPHEN TAB 325 MG TAB ONE (13:23)
--- NOTE | 2024-02-22 14:43 | US ---
EXAMINATION TYPE: US carotid duplex BILAT DATE OF EXAM: 02/22/2024 COMPARISON: NONE CLINICAL INDICATION: Female, 69 years old with history of Pre-Op Cardiac Surgery; open heart left ICA occluded for years per patient. TECHNIQUE: Carotid duplex ultrasound examination. Indirect Doppler criteria was utilized. FINDINGS: EXAM MEASUREMENTS: RIGHT: Peak Systolic Velocity (PSV) cm/sec ----- Right CCA: 142 ----- Right ICA: 184 ----- Right ECA: 169 ICA/CCA ratio: 1.3 RIGHT: End Diastole cm/sec ----- Right CCA: 18.1 ----- Right ICA: 36.5 ----- Right ECA: 14.5 LEFT: Peak Systolic Velocity (PSV) cm/sec ----- Left CCA: 114 ----- Left ICA: occluded ----- Left ECA: 353 ICA/CCA ratio: LEFT: End Diastole cm/sec ----- Left CCA: 0 ----- Left ICA: occluded ----- Left ECA: 0 VERTEBRALS (direction of flow): Right Vertebral: Antegrade Left Vertebral: Not visualized. CORDUROY CUTTER OPERATOR NOTES: Left ICA occluded. IMPRESSION: 1. The left ICA is occluded. This has been reported by prior MRI. 2. No significant stenosis of the right ICA. Criteria for Assigning % of Stenosis / Diameter reduction (Estimation based on the indirect measurements of the internal carotid artery velocities (ICA PSV). 1. Normal (no stenosis)=ICA PSV < 125 cm/s: ratio < 2.0: ICA EDV<40 cm/s. 2. Less than 50% stenosis=ICA PSV < 125 cm/s: ratio < 2.0: ICA EDV<40 cm/s. 3. 50 to 69% stenosis=ICA PSV of 125 to 230 cm/s: ration 2.0 ? 4.0: ICA EDV 40-100 cm/s. 4. Greater than 70% stenosis to near occlusion= ICA PSV > 230 cm/s: ratio > 4.0: ICA EDV > 100 cm/s. 5. Near occlusion= ICA PSV velocities may be low or undetectable: variable ratio and ICA EDV. 6. Total occlusion=unable to detect flow.
[2024-02-22 15:39] LABS: Partial Thromboplastin Time 24.9 sec (22.0-30.0); Prothrombin Time 10.8 sec (10.0-12.5)
[2024-02-22 15:40] LABS: ALT 12 U/L (4-34); AST 15 U/L (14-36); African American GFR (CKD) 67 (>60 ml/min/1.73 sqM); Albumin 3.6 g/dL (3.5-5.0); Alkaline Phosphatase 65 U/L (38-126); Anion Gap 8 mmol/L; Blood Urea Nitrogen 25 mg/dL (7-17); Calcium 9.7 mg/dL (8.4-10.2); Carbon Dioxide 19 mmol/L (22-30); Chloride 111 mmol/L (98-107); Glucose 196 mg/dL (74-99); Magnesium 1.7 mg/dL (1.6-2.3); Non-African American GFR(CKD) 59 (>60 ml/min/1.73 sqM); Potassium 5.1 mmol/L (3.5-5.1); Sodium 138 mmol/L (137-145); Total Bilirubin 0.3 mg/dL (0.2-1.3); Total Protein 6.3 g/dL (6.3-8.2)
--- NOTE | 2024-02-22 15:41 | P.GSCN ---
History of Present Illness Consult date: 02/22/24 Reason for Consult: Coronary artery disease and severe mitral valve regurgitation per transesophageal echocardiogram Requesting physician: Ahmet Bruno History of present illness: This is a 69-year-old female patient who follows an outpatient with Renetta Altamirano DNP for her primary care and with Dr. Bruno for her cardiology care. 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 Recently, the patient has had complaints of chest pain and progressive shortness of breath with minimal activity with symptoms consistent mostly with NYHA class II and sometimes NYHA class III. She denies any recent fever, chills, nausea, vomiting, hematemesis, hemoptysis, palpitations, diarrhea, constipation, headac he, cough, presyncope or syncope. The patient reports that her symptoms have been limiting her daily activities. Due to the patient's complaints of progressive shortness of breath she underwent a transthoracic 2D echocardiogram on January 28, 2024 which demonstrated a normal left ventricular size with normal systolic function, an ejection fraction of 55%, severe mitral valve regurgitation, mild mitral valve stenosis, a valve area of 1.91 cm, mean gradient of 7 mmHg, peak gradient of 23 mmHg, moderate mitral annular calcification, mild aortic valve stenosis with an aortic valve area measuring 1 .54 cm, a peak gradient of 28 mmHg, mean gradient 16 mmHg, mild tricuspid valve regurgitation, mildly increased pulmonary artery systolic pressures equal 36 mmHg, and a normal aorta with a normal aortic root. Due to the findings on the transthoracic 2D echocardiogram and the patient's symptoms she was recommended to undergo a cardiac catheterization and transesophageal echocardiogram which were completed today February 22, 2024. The cardiac catheterization revealed and angiographically normal left main coronary artery, a patent stent to her diagonal branch of her left anterior descending coronary artery, mild disease to her circumflex coronary artery, and severe disease involving the midportion of the right coronary artery. The transesophageal echocardiogram demonstrated a rheumatic mitral valve with evidence of severe mitral valve regurgitation by color-flow Doppler and by quantitative measurements, evidence of reversal of flow in the left lower pulmonary vein, a normal left ventricular dimension and systolic function, normal right ventricular dimensions and systolic function, severe bilateral atrial enlargement, aortic valve sclerosis with no stenosis or insufficiency and moderate tricuspid valve regurgitation. Subsequently, due to the findings on the above-mentioned studies a consult was placed to Dr. Luiz Fragoso from cardiothoracic surgery for further evaluation and treatment recommendations. Review of Systems A 14 point review of systems was completed and was negative except as mentioned in the HPI. Past Medical History Past Medical History: Asthma, Coronary Artery Disease (CAD), Chest Pain / Evelyn na, COPD, CVA/TIA, Dementia, Diabetes Mellitus, Deep Vein Thrombosis (DVT), Fibromyalgia, GERD/Reflux, Hearing Disorder / Deafness, Hyperlipidemia, Hypertension, Memory Impairment, Osteoarthritis (OA), Renal Disease, Seizure Disorder, Skin Disorder, Vascular Disorder Additional Past Medical History / Comment(s): See Dr Bruno's H&P. Recent SOB and chest pain. Gastritis, colitis, urinary incontinence. TIA's X3(2006,2008,2013). Hx fall, hit her head resulting in hematoma and subsequent CVA X2 with seizure(2015), short term memory impairment. No meds for Diabetes. Hx rheumatic fever, heart murmur, deaf right ear. PVD, left carotid stenosis. Hx DVT right leg(2013). LARGE LT GOITER, lymphedema bilateral legs, wearing bandages, states nothing open or draining at this time. History of Any Multi-Drug Resistant Organisms: None Reported Past Surgical History: Adenoidectomy, Appendectomy, Bariatric Surgery, Cholecystectomy, Heart Catheterization With Stent, Hysterectomy, Joint Replacement, Orthopedic Surgery, Tonsillectomy Additional Past Surgical History / Comment(s): Bilateral hip replacement, cervical fusion with plate and screw, lap band surgery, bilateral carpal tunnel, panniculectomy, left iliac stent, tubes in brain after fall and hematoma - later removed, PEG tube placed and later removed, right carotid endardectomy, left leg balloon angioplasty, colonoscopies, EGD, flexible sigmoidoscopy, right big toenail removed. Past Anesthesia/Blood Transfusion Reactions: No Reported Reaction Additional Past Anesthesia/Blood Transfusion Reaction / Comm: Vertigo. Date of Last Stent Placement:: not known by pt Past Psychological History: Anxiety, Depression Smoking Status: Former smoker Past Alcohol Use History: None Reported Past Drug Use History: None Reported - Past Family History Sister(s) Family Medical History: Cancer, Coronary Artery Disease (CAD), Hyperlipidemia, Hypertension Additional Family Medical History / Comment(s): Aneurysm, heart stents, uterine cancer, has 3 living sisters. Brother(s) Family Medical History: Cancer, Hypertension, Myocardial Infarction (PR) Additional Family Medical History / Comment(s): Colon cancer, stents in legs, heart disease, carotid disease, triple bypass; 2 brothers : heart disease; 1 brother living. Mother Family Medical History: Coronary Artery Disease (CAD), Diabetes Mellitus Additional Family Medical History / Comment(s): . Father Family Medical History: Coronary Artery Disease (CAD) Additional Family Medical History / Comment(s): . Medications and Allergies Home Medications Medication Instructions Recorded Confirmed Type QUEtiapine [SEROquel] 25 mg PO HS 11/11/16 02/22/24 History Aspirin 81 mg PO HS 04/23/21 02/22/24 History hydrALAZINE HCL [Apresoline] 100 mg PO TID 04/23/21 02/22/24 History Acetaminophen [Tylenol 8 Hour] 650 mg PO BID 01/21/22 02/22/24 History Atorvastatin [Lipitor] 40 mg PO HS 01/21/22 02/22/24 History Cholecalciferol (Vitamin D3) 125 mcg PO DAILY 01/21/22 02/22/24 History [Vitamin D3 (125 MCG = 5,000 IU)] Garlic 1,000 mg PO DAILY 01/21/22 02/22/24 History Metoprolol Succinate (ER) [Toprol 50 mg PO BID 01/21/22 02/22/24 History XL] Spironolactone 50 mg PO QAM 01/21/22 02/22/24 History amLODIPine [Norvasc] 10 mg PO HS 01/21/22 02/22/24 History Isosorbide Mononitrate ER [Imdur] 30 mg PO QAM 05/08/22 02/22/24 History cloNIDine 0.3 MG/24HR PATCH 1 patch TRANSDERM TU 05/08/22 02/22/24 History [Catapres-TTS] Clopidogrel [Plavix] 75 mg PO QAM 02/18/24 02/22/24 History Enalapril Maleate 20 mg PO BID 02/18/24 02/22/24 History Furosemide [Lasix] 40 mg PO DAILY PRN 02/18/24 02/22/24 History Allergies Allergy/AdvReac Type Severity Reaction Status Date / Time acetaminophen [From Vicodin] Allergy Rash/Hives Verified 02/22/24 07:32 cefdinir [From Omnicef] Allergy Rash/Hives Verified 02/22/24 07:32 colchicine Allergy Rash/Hives/ Verified 02/22/24 07:32 Nausea ezetimibe [From Zetia] Allergy Rash/Hives Verified 02/22/24 07:32 furosemide [From Lasix] Allergy heart Verified 02/22/24 07:32 palpitations w/pills, can take liquid Gadolinium-Containing Allergy Itching Verified 02/22/24 07:32 Contrast Medi hydrocodone Allergy Rash/Hives Verified 02/22/24 07:32 ibuprofen Allergy Itching Verified 02/22/24 07:32 Iodinated Contrast Media Allergy Rash/Hives, Verified 02/22/24 07:32 [Iodinated Contrast Media - itching,swe Oral and] lling loracarbef [From Lorabid] Allergy Rash/Hives Verified 02/22/24 07:32 morphine Allergy Rash/Hives Verified 02/22/24 07:32 Penicillins Allergy Unknown Verified 02/22/24 07:32 Childhood prednisone Allergy Racing Verified 02/22/24 07:32 heart sulfamethoxazole Allergy Rash/Hives Verified 02/22/24 07:32 [From Septra] topiramate Allergy Unknown Verified 02/22/24 07:32 trimethoprim [From Septra] Allergy Rash/Hives Verified 02/22/24 07:32 albuterol AdvReac DRY THROAT Verified 02/22/24 07:32 atorvastatin [From Lipitor] AdvReac joint pain Verified 02/22/24 07:32 ipratropium AdvReac dry throat Verified 02/22/24 07:32 lovastatin AdvReac joint pain Verified 02/22/24 07:32 tiotropium AdvReac dry throat Verified 02/22/24 07:32 [From Spiriva with HandiHaler] tramadol AdvReac seizures Verified 02/22/24 07:32 mefix tape Allergy Rash/Hives Uncoded 02/22/24 07:32 Surgical - Exam Vital Signs Temp Pulse Resp BP Pulse Ox 98.3 F 112 H 18 140/83 93 L 02/22/24 07:39 02/22/24 07:39 02/22/24 07:39 02/22/24 07:39 02/22/24 07:39 - General well developed, well nourished, no distress, no pain, chronically ill, obese (Morbidly obese) - Eyes PERRL, normal ocular movement, no pale, no icteric - ENT normal pinna, normal nares, normal mucosa, no congestion, decreased hearing (Deaf to her right ear), no poor penitent[facility] - Neck no masses, trachea midline, no venous distension, other (Goiter) carotid bruit: right - Respiratory Lung sounds essentially clear throughout, diminished to her bilateral bases. Respirations are symmetrical and nonlabored. - Cardiovascular Regular rhythm and rate. S1 and S2 present, negative for S3, or gallop. A pansystolic murmur. - Abdomen Abdomen is soft, nontender and nondistended. Active bowel sounds present all 4 abdominal quadrants. No guarding or rigidity. No organomegaly appreciated. Morbidly obese. - Genitourinary Deferred - Rectum Deferred - Integumentary Skin is warm and dry. No clubbing or cyanosis is present. Chronic skin changes to her bilateral lower extremities. no growths - Neurologic No focal deficits. normal coordination - Musculoskeletal Moves all 4 extremities with equal strength bilateral. - Psychiatric oriented to time, oriented to person, oriented to place, speech is normal, no memory intact (Short-term memory loss) Results - Labs 02/22/24 07:30 02/22/24 07:30 Abnormal Lab Results - Last 24 Hours (Table) 02/22/24 02/22/24 02/22/24 Range/Units 07:30 07:30 07:47 Hgb 11.3 L (11.4-16.0) gm/dL MCHC 30.8 L (31.0-37.0) g/dL Potassium 5.4 H (3.5-5.1) mmol/L Chloride 111 H (98-107) mmol/L Carbon Dioxide 15 L (22-30) mmol/L BUN 28 H (7-17) mg/dL Glucose 149 H (74-99) mg/dL POC Glucose (mg/dL) 154 H (70-110) mg/dL Diabetes panel 02/22/24 Range/Units 07:30 Sodium 139 (137-145) mmol/L Potassium 5.4 H (3.5-5.1) mmol/L Chloride 111 H (98-107) mmol/L Carbon Dioxide 15 L (22-30) mmol/L BUN 28 H (7-17) mg/dL Creatinine 1.04 (0.52-1.04) mg/dL Glucose 149 H (74-99) mg/dL Calcium 9.8 (8.4-10.2) mg/dL Calcium panel 02/22/24 Range/Units 07:30 Calcium 9.8 (8.4-10.2) mg/dL Pituitary panel 02/22/24 Range/Units 07:30 Sodium 139 (137-145) mmol/L Potassium 5.4 H (3.5-5.1) mmol/L Chloride 111 H (98-107) mmol/L Carbon Dioxide 15 L (22-30) mmol/L BUN 28 H (7-17) mg/dL Creatinine 1.04 (0.52-1.04) mg/dL Glucose 149 H (74-99) mg/dL Calcium 9.8 (8.4-10.2) mg/dL Adrenal panel 02/22/24 Range/Units 07:30 Sodium 139 (137-145) mmol/L Potassium 5.4 H (3.5-5.1) mmol/L Chloride 111 H (98-107) mmol/L Carbon Dioxide 15 L (22-30) mmol/L BUN 28 H (7-17) mg/dL Creatinine 1.04 (0.52-1.04) mg/dL Glucose 149 H (74-99) mg/dL Calcium 9.8 (8.4-10.2) mg/dL Assessment and Plan Assessment: Rheumatic mitral valve with evidence of severe mitral valve regurgitation on transesophageal echocardiogram Moderate tricuspid valve regurgitation on transesophageal echocardiogram Coronary artery disease with history of PCI to her diagonal branch of her LAD and severe disease involving the mid right coronary artery Hypertension Hyperlipidemia Diabetes mellitus type 2, diet-controlled Peripheral arterial disease status post right iliac stent placement and balloon angioplasty to her right lower extremity Morbid obesity with a BMI of 53.6 kg/m, history of lap band and panniculectomy History of CVA/TIA with no residual deficits Chronically occluded left internal carotid artery, history of right carotid endarterectomy Chronic obstructive pulmonary disease Asthma History of fall from standing with head injury in 2016 resulting in hematoma, and short-term memory loss History of deep vein thrombosis to her right lower extremity Medical debility, clinical frailty score calculated at 6 which shows moderately frail Depression Anxiety Family history of early onset coronary artery disease on both her mother and father side GERD Remote history of nicotine dependence, quit smoking in 2005 Plan: The patient was seen and examined at her bedside in the extended stay unit with her daughter present at her bedside. Her chart and diagnostics were reviewed. Her case was discussed in detail with Dr. Quintero from cardiothoracic surgery. Some preoperative testing has been initiated, we will obtain a carotid duplex study, a pulmonary function test FEV1 and some fresh laboratory studies. She will be scheduled to see Dr. Fragoso as an outpatient on Monday, February 26, 2024 for further evaluation and treatment recommendations. A clinical frailty score was calculated which showed 6 moderately frail. Once the patient's preoperative studies have been obtained and STS risk or will be calculated and discussed with the patient. Continue to maximize medical management. Medical management and other comorbidities per primary care and cardiology service. More recommendations to follow based on patient's clinical course and as her preoperative studies have been obtained. Thank you Dr. Bruno for this consult and we will follow-up with the patient on an outpatient basis. I have personally seen and examined the patient, performed the documentation and the assessment and plan as written. Number of minutes spent on the visit: 30. HELENA Munoz
[2024-02-22 15:50] LABS: Appearance,Urine Clear (Clear); Bacteria,Urine Rare /hpf; Bilirubin,Urine Negative (Negative); Blood,Urine Negative (Negative); Color,Urine Colorless; Glucose,Urine (UA) Negative (Negative); Ketones,Urine Negative (Negative); Leukocyte Esterase,Urine Trace (Negative); Mucus,Urine Rare /hpf; Nitrite,Urine Positive (Negative); PH, Urine 5.5 (5.0-8.0); Protein,Urine Negative (Negative); RBC,Urine <1 /hpf (0-5); Specific Gravity,Urine 1.017 (1.001-1.035); Squamous Epithelial Cell,Urine 1 /hpf (0-4); Urobilinogen,Urine <2.0 mg/dL (<2.0); WBC,Urine 4 /hpf (0-5)
[2024-02-22 16:40] VITALS: BP 155/67; PULSE 85
[2024-02-22 16:47] LABS: T4, Free (Free Thyroxine) 0.96 ng/dL (0.78-2.19)
[2024-02-22 22:31] LABS: Chol/HDL Ratio 2.93 Ratio; LDL Cholesterol,Calculated 84.6 mg/dL (0.0-131.0)
[2024-02-22 23:00] LABS: Hepatitis A Antibody IgM Nonreactive (Nonreactive); Hepatitis B Core IgM Nonreactive (Nonreactive); Hepatitis B Surface Antigen Nonreactive (Nonreactive); Hepatitis C IgG Antibody Nonreactive (Nonreactive)
== END 2024-02-22 17:47 | disposition home or self-care (01) ==
LOC: CATHCVL 07:12
PROVIDERS: ATTEND Internal Medicine Interventional Cardiology
DX: I08.3 Combined rheumatic disorders of mitral, aortic and tricuspid valves (principal); I25.10 Atherosclerotic heart disease of native coronary artery without angina pectoris; E11.51 Type 2 diabetes mellitus with diabetic peripheral angiopathy without gangrene; E66.01 Morbid (severe) obesity due to excess calories; E78.5 Hyperlipidemia, unspecified; F03.94 Unspecified dementia, unspecified severity, with anxiety; F32.A Depression, unspecified; G40.909 Epilepsy, unspecified, not intractable, without status epilepticus; I10 Essential (primary) hypertension; J44.89 Other specified chronic obstructive pulmonary disease; K21.9 Gastro-esophageal reflux disease without esophagitis; M19.90 Unspecified osteoarthritis, unspecified site; M79.7 Fibromyalgia; Z68.43 Body mass index [BMI] 50.0-59.9, adult; Z79.02 Long term (current) use of antithrombotics/antiplatelets; Z86.718 Personal history of other venous thrombosis and embolism; Z86.73 Personal history of transient ischemic attack (TIA), and cerebral infarction without residual deficits; Z87.891 Personal history of nicotine dependence; Z88.0 Allergy status to penicillin; Z88.1 Allergy status to other antibiotic agents; Z88.2 Allergy status to sulfonamides; Z88.5 Allergy status to narcotic agent; Z88.8 Allergy status to other drugs, medicaments and biological substances; Z91.041 Radiographic dye allergy status; Z95.5 Presence of coronary angioplasty implant and graft; Z79.899 Other long term (current) drug therapy
CPT/HCPCS: 93312; 93320; 93325; 93458; 76937; 84439; 80061; 80053; 80048; 80074; 84443; 83735; 85025; 85610; 85730; 81001; 87070; 83036; 93880; 99152; C1769 ×2; C1894 ×2; J2250; J2001; Q9967; J3010

== ENCOUNTER 2024-03-16 09:18 | Day surgery (SDC) | payer MEDICARE ==
[~2024-03-16 09:18] MED LIST changes: +ALPRAZolam 0.5 MG TAB PO PRN; -ASPIRIN 325 MG TAB PO ONE
[2024-03-16] MEDS: SODIUM CHLORIDE 0.9% 1,000 ML IV ONE (09:30)
[2024-03-16 10:06] LABS: Glucose,Whole Blood 108 mg/dL (70-110)
[2024-03-16 10:25] LABS: Basophils % (A) 0 %; Eosinophils # (A) 0.2 k/uL (0-0.7); Eosinophils % (A) 3 %; HCT 32.1 % (34.0-46.0); HGB 10.2 gm/dL (11.4-16.0); Lymphocytes # (A) 1.6 k/uL (1.0-4.8); Lymphocytes % (A) 19 %; MCH 30.4 pg (25.0-35.0); MCHC 31.7 g/dL (31.0-37.0); MCV 95.9 fL (80.0-100.0); Mean Platelet Volume 8.5; Monocytes # (A) 0.5 k/uL (0-1.0); Monocytes % (A) 6 %; Neutrophils # (A) 5.7 k/uL (1.3-7.7); Neutrophils % (A) 70 %; Platelet Count 241 k/uL (150-450); RBC 3.35 m/uL (3.80-5.40); RDW 14.3 % (11.5-15.5); WBC 8.2 k/uL (3.8-10.6)
[2024-03-16 10:38] LABS: African American GFR (CKD) 50 (>60 ml/min/1.73 sqM); Anion Gap 6 mmol/L; Blood Urea Nitrogen 32 mg/dL (7-17); Calcium 9.7 mg/dL (8.4-10.2); Carbon Dioxide 18 mmol/L (22-30); Chloride 116 mmol/L (98-107); Glucose 108 mg/dL (74-99); Non-African American GFR(CKD) 43 (>60 ml/min/1.73 sqM); Potassium 5.8 mmol/L (3.5-5.1); Sodium 140 mmol/L (137-145)
[2024-03-16] MEDS ORDERED: LIDOCAINE 1% INJ 10MG/ML (20 ML MDV) ONE (10:56)
[2024-03-16] MEDS ORDERED: HEPARIN SODIUM 1,000 UN/ML (10ML VL) ONE (11:08)
[2024-03-16] MEDS ORDERED: fentaNYL (PF) 50 MCG/ML 2 ML AMP ONE (11:09)
[2024-03-16] MEDS: MIDAZOLAM 2 MG/2 ML VIAL IVP ONE (11:20)
[2024-03-16] MEDS: LIDOCAINE 1% INJ 10MG/ML (20 ML MDV) SQ ONE (11:22)
[2024-03-16] MEDS ORDERED: VERAPAMIL 2.5 MG/ML 2 ML AMP ONE (11:35)
[2024-03-16] MEDS: fentaNYL (PF) 50 MCG/ML 2 ML AMP IVP ONE (11:36)
[2024-03-16] MEDS: VERAPAMIL SYRINGE (5 MG/10 ML) INTRAARTER ONE (11:38)
[2024-03-16] MEDS: HEPARIN SODIUM 1,000 UN/ML (10ML VL) IV ONE (11:40)
[2024-03-16] MEDS ORDERED: FUROSEMIDE 10 MG/ML 4 ML VIAL ONE (11:50)
[2024-03-16] MEDS: FUROSEMIDE 10 MG/ML 4 ML VIAL IV ONE (11:52)
[2024-03-16] MEDS: IOPAMIDOL-370 100ML BTL INJ ONE (11:56)
[2024-03-16] MEDS ORDERED: FUROSEMIDE 40 MG TAB PO PRN (11:58)
[2024-03-16] MEDS ORDERED: CLOPIDOGREL 75 MG TAB ONE (11:59)
[2024-03-16] MEDS ORDERED: NITROGLYCERIN SL TABS 0.4 MG TAB SUBLINGUAL PRN (12:00)
[2024-03-16] MEDS ORDERED: RX INFO: IV CONTRAST WAS GIVEN 1 EACH MISC MISCELLANE PRN (12:00)
[2024-03-16] MEDS ORDERED: ZOLPIDEM 5 MG TAB PO PRN (12:00)
[2024-03-16] MEDS ORDERED: MAG HYDROX/AL HYDROX/SIMETH 30 ML CUP PO PRN (12:00)
[2024-03-16] MEDS ORDERED: ATROPINE SULFATE 0.1 MG/ML 10ML SYRINGE IV PRN (12:00)
--- NOTE | 2024-03-16 12:07 | P.PCN ---
Date of Procedure: 03/16/24 Operative Findings: PERCUTANEOUS CORONARY INTERVENTION Performing physician Ahmet Bruno M.D. Procedure Performed: 1. Successful stenting of the mid RCA using 4.0 x 18 mm Xience drug-eluting stent with an excellent angiographic results. 2. Adjunctive use of intravascular imaging (IVUS) 3. Selective right coronary angiogram 4. Ultrasound-guided access of the left radial artery Indication: Symptomatic 69-year-old female patient with severe coronary artery disease involving the RCA Approach: Left radial artery Complications: None Level of Sedation: Moderate with a sedation length of 33 minutes Procedure Discussion: After obtaining informed consent the patient was brought to the cardiac [facility]. Initially attempting accessing the right femoral artery was unsuccessful in spite of using ultrasound. The patient has no radial pulse. She did have left radial pulse. The left radial artery was cannulated using micropuncture technique under ultrasound guidance and micropuncture wire passed easily then I placed a 6 Croatian sheath with a give the patient 2 mg of verapamil intra- arterial and 5000's of heparin intravenous. Subsequently I engaged using JR4 guiding catheter. I wired using a run-through wire. Subsequently I did intravascular ultrasound which showed a soft plaque with a diameter of the RCA in the midportion around 4 mm. Predilatation was performed using 3.5 mm score flex balloon before I deployed a 4.0 x 18 mm stent where the stent was positioned under fluoroscopy guidance and deployed under 14 dylan for 20 seconds. The following angiogram showed excellent angiographic results with RADHA-3 flow and the procedure was completed with no complication Postprocedure Management: 1. Dual antiplatelet therapy using aspirin and Plavix for at least 6 months 2. Aggressive cholesterol control 3. Risk factors modification
[2024-03-16] MEDS: CLOPIDOGREL 75 MG TAB PO ONE (12:09)
[2024-03-16] MEDS: IPRATROPIUM-ALBUTEROL 3 ML NEB INHALATION STA (12:28)
[2024-03-16] MEDS: hydrALAZINE HCL 20 MG/ML 1 ML VIAL ONE (12:43)
[2024-03-16] MEDS: SODIUM CHLORIDE 0.9% 1,000 ML in EMPTY BAG 1 BAG IV SCH ×2 (12:46→14:08)
[2024-03-16] MEDS: ASPIRIN 325 MG TAB PO ONE (12:46)
[2024-03-16] MEDS: hydrALAZINE HCL 20 MG/ML 1 ML VIAL IVP STA (14:45)
[2024-03-16] MEDS: hydrALAZINE HCL 50 MG TAB PO SCH (16:00)
[2024-03-16 16:53] LABS: Glucose,Whole Blood 121 mg/dL (70-110)
[2024-03-16 21:12] LABS: Glucose,Whole Blood 150 mg/dL (70-110)
[2024-03-16] MEDS: ACETAMINOPHEN TAB 325 MG TAB PO SCH (22:04)
[2024-03-16] MEDS: ASPIRIN 81 MG PO SCH (22:05)
[2024-03-16] MEDS: ATORVASTATIN 40 MG TAB PO SCH (22:05)
[2024-03-16] MEDS: QUEtiapine 25 MG TAB PO SCH (22:05)
[2024-03-16] MEDS: METOPROLOL SUCCINATE (ER) 50 MG TAB.ER.24H PO SCH (22:05)
[2024-03-16] MEDS: amLODIPine 10 MG TAB PO SCH (22:05)
[2024-03-16] MEDS: lisinopriL 20 MG TAB PO SCH (22:09)
[2024-03-17 06:21] LABS: Glucose,Whole Blood 106 mg/dL (70-110)
[2024-03-17 07:28] LABS: African American GFR (CKD) 60 (>60 ml/min/1.73 sqM); Non-African American GFR(CKD) 52 (>60 ml/min/1.73 sqM)
[2024-03-17 08:17] VITALS: BP 171/73; PULSE 68; RESP 18; TEMP 97.9
[2024-03-17] MEDS ORDERED: NON FORMULARY DRUG (Garlic [Garlic] 1,000 MG Capsule) PO SCH (09:00)
[2024-03-17] MEDS: CHOLECALCIFEROL 125 MCG (5000 IU) TABLET PO SCH (11:42)
[2024-03-17] MEDS: ASCORBIC ACID 500 MG TAB PO SCH (11:42)
[2024-03-17] MEDS: CLOPIDOGREL 75 MG TAB PO SCH (11:42)
[2024-03-17] MEDS: MULTIVITAMINS, THERA 1 EACH TAB PO SCH (11:43)
[2024-03-17] MEDS: ISOSORBIDE MONONITRATE ER 30 MG TAB.ER.24H PO SCH (11:43)
[2024-03-17] MEDS: SPIRONOLACTONE 25 MG TAB PO SCH (11:43)
[2024-03-17 11:53] LABS: Glucose,Whole Blood 131 mg/dL (70-110)
--- NOTE | 2024-03-19 04:41 | P.DS ---
Providers Attending physician: Ahmet Bruno Consults: 03/16/24 12:00 Consult Physician Routine Consulting Provider: [facility] Consult Reason/Comments: Post Interventional patient Do you want consulting provider notified?: Already Contacted Primary care physician: Mirella Landry [facility] Course: The patient is a pleasant 69-year-old female patient who was admitted to the hospital on March 16, 2024 and she underwent PCI of the RCA. She was evaluated the following day March 17, 2024. She was stable from the cardiac standpoint of view. She was hemodynamically stable beside the pressure being elevated and that has been to see always in the hospital and better at home. The procedure was performed from left radial approach. The left radial artery site is soft and nontender The patient will be discharged home on dual antiplatelet therapy and she will be seen in the office as an outpatient Plan - Discharge Summary Discharge Rx Participant: No New Discharge Prescriptions: No Action QUEtiapine [SEROquel] 25 mg PO HS Aspirin 81 mg PO HS Metoprolol Succinate (ER) [Toprol XL] 50 mg PO BID Acetaminophen [Tylenol 8 Hour] 650 mg PO BID Spironolactone 50 mg PO QAM Isosorbide Mononitrate ER [Imdur] 30 mg PO QAM Multivitamins, Thera [Multivitamin (formulary)] 1 tab PO DAILY hydrALAZINE HCL [Apresoline] 100 mg PO TID Cholecalciferol (Vitamin D3) [Vitamin D3 (125 MCG = 5,000 IU)] 125 mcg PO DAILY amLODIPine [Norvasc] 10 mg PO HS Garlic 1,000 mg PO DAILY Atorvastatin [Lipitor] 40 mg PO HS cloNIDine 0.3 MG/24HR PATCH [Catapres-TTS] 1 patch TRANSDERM TU Furosemide [Lasix] 40 mg PO DAILY PRN PRN Reason: Edema Enalapril Maleate 20 mg PO BID Clopidogrel [Plavix] 75 mg PO QAM metFORMIN HCL 500 mg PO DAILY amLODIPine 10 mg PO HS Vitamin C/Biotin [Hair, Skin and Nails Chew] 1 tab PO DAILY Discharge Medication List QUEtiapine [SEROquel] 25 mg PO HS 11/11/16 [History] Aspirin 81 mg PO HS 04/23/21 [History] hydrALAZINE HCL [Apresoline] 100 mg PO TID 04/23/21 [History] Acetaminophen [Tylenol 8 Hour] 650 mg PO BID 03/29/22 [History] Atorvastatin [Lipitor] 40 mg PO HS 01/21/22 [History] Cholecalciferol (Vitamin D3) [Vitamin D3 (125 MCG = 5,000 IU)] 125 mcg PO DAILY 01/21/22 [History] Garlic 1,000 mg PO DAILY 01/21/22 [History] Metoprolol Succinate (ER) [Toprol XL] 50 mg PO BID 01/21/22 [History] Spironolactone 50 mg PO QAM 01/21/22 [History] amLODIPine [Norvasc] 10 mg PO HS 01/21/22 [History] Isosorbide Mononitrate ER [Imdur] 30 mg PO QAM 05/08/22 [History] cloNIDine 0.3 MG/24HR PATCH [Catapres-TTS] 1 patch TRANSDERM TU 05/08/22 [History] Clopidogrel [Plavix] 75 mg PO QAM 02/18/24 [History] Enalapril Maleate 20 mg PO BID 02/18/24 [History] Furosemide [Lasix] 40 mg PO DAILY PRN 02/18/24 [History] Multivitamins, Thera [Multivitamin (formulary)] 1 tab PO DAILY 03/14/24 [History] Vitamin C/Biotin [Hair, Skin and Nails Chew] 1 tab PO DAILY 03/14/24 [History] amLODIPine 10 mg PO HS 03/14/24 [History] metFORMIN HCL 500 mg PO DAILY 03/14/24 [History] Follow up Appointment(s)/Referral(s): Ahmet Bruno MD [STAFF PHYSICIAN] - 1 Week (Office will call with appointment date and time) Patient Instructions/Handouts: Moderate Sedation (DC), After Radial Heart Catheterization (GEN) Activity/Diet/Wound Care/Special Instructions: NO DRIVING TODAY OR TOMORROW. AVOID PUSHING PULLING LIFTING GREATER THAN 5LB FOR FIVE DAYS. SIGNS OF INFECTION IE: FEVER, SWELLING OR HARD KNOT, UNUSUAL DRAINAGE O RASH CONTACT DOCTOR TO BE EVALUATED. IF PUNCTURE BLEEDS, APPLY FIRM DIRECT PRESSURE AND GO TO ER. DO NOT DRIVE SELF. CALL 911 [address] YOU. MEDICATIONS DIRECTED BY DIRECTOR OF PROGRAMMING. FALL PRECAUTIONS TODAY. AVOID IMMERSING WRIST IN STANDING WATER (TUBS, POOLS, DOING DISHES ECT FOR 3 DAYS TO AVOID RISK OF INFECTION). Discharge Disposition: HOME SELF-CARE
[2024-03-22] MEDS ORDERED: cloNIDine 0.3 MG/24HR PATCH TRANSDERM SCH (09:00)
== END 2024-03-17 12:57 | disposition home or self-care (01) ==
LOC: CATHCVL 09:18 → 6NMEDSUR 11:55 → CATHCVL 03-17 12:57
PROVIDERS: ATTEND Internal Medicine Interventional Cardiology
DX: I25.10 Atherosclerotic heart disease of native coronary artery without angina pectoris (principal); I10 Essential (primary) hypertension; E78.5 Hyperlipidemia, unspecified; E11.9 Type 2 diabetes mellitus without complications; I73.9 Peripheral vascular disease, unspecified; F17.210 Nicotine dependence, cigarettes, uncomplicated; I65.23 Occlusion and stenosis of bilateral carotid arteries; I38 Endocarditis, valve unspecified; E66.9 Obesity, unspecified; Z68.43 Body mass index [BMI] 50.0-59.9, adult; Z82.49 Family history of ischemic heart disease and other diseases of the circulatory system; Z79.82 Long term (current) use of aspirin; Z98.890 Other specified postprocedural states; Z79.899 Other long term (current) drug therapy; Z79.02 Long term (current) use of antithrombotics/antiplatelets; Z79.84 Long term (current) use of oral hypoglycemic drugs; Z95.5 Presence of coronary angioplasty implant and graft
CPT/HCPCS: 94640; 92978; 76937; 80048; 82565; 85025; C9600; C1887 ×2; C1769 ×3; C1894 ×2; C1753; C1874; C1725; J2250; J0360; J1940; J2001; J3010; J1644; Q9967

== ENCOUNTER → 2024-05-19 | Outpatient (CLI) | payer MEDICARE ==
--- NOTE | 2024-05-19 10:04 | MR ---
EXAMINATION TYPE: MR brain wo con DATE OF EXAM: 05/19/2024 COMPARISON: NONE HISTORY: Migraine TECHNIQUE: T1-weighted sagittal, T2, FLAIR, and diffusion axial, and T2 coronal coronal views of the brain are submitted. FINDINGS: Exam limited by motion artifact. There is no evidence of acute ischemia. Moderate degenerative changes. Areas of abnormal attenuation involving the white matter most and remote microvascular ischemia. Areas of encephalomalacia prior in farct involving the right frontoparietal and left temporal lobes are noted. There is some blooming ar tifact suggesting prior hemorrhagic or calcific infarcts. Orbits are symmetric. There is changes of chronic sinusitis.. Craniocervical junction maintained. Sella turcica has a normal appearance. IMPRESSION: 1. Limited exam due to motion artifact demonstrates no gross acute intracranial process. 2. Areas of encephalomalacia involving both cerebral and suggestive of areas of higher infarction.
== END | disposition home or self-care (01) ==
LOC: RADMRIMAIN 08:40
PROVIDERS: ATTEND Psychiatry & Neurology Neurology
DX: G43.911 Migraine, unspecified, intractable, with status migrainosus (principal); G93.89 Other specified disorders of brain
CPT/HCPCS: 70551

== ENCOUNTER 2024-09-20 10:22 | Day surgery (SDC) | payer MEDICARE ==
[~2024-09-20 10:22] MED LIST changes: -HEPARIN SODIUM,PORCINE (1 ML) 2,500 UNIT in SODIUM CHLORIDE 0.9% 250 ML IRRIGATION PRN; -HEPARIN SODIUM,PORCINE 10,000 UNIT in SODIUM CHLORIDE 0.9% 1,000 ML IRRIGATION PRN; -NITROGLYCERIN SL TABS 0.4 MG TAB SUBLINGUAL PRN; +ZOLPIDEM 5 MG TAB PO PRN
[2024-09-20] MEDS: IV FLUID CONTINUATION 1,000 ML IV ONE (10:40)
[2024-09-20 11:11] LABS: Basophils % (A) 0 %; Eosinophils # (A) 0.4 k/uL (0-0.7); Eosinophils % (A) 4 %; HCT 32.1 % (34.0-46.0); Hypochromasia Moderate; Lymphocytes # (A) 1.6 k/uL (1.0-4.8); Lymphocytes % (A) 19 %; MCH 30.1 pg (25.0-35.0); MCV 96.9 fL (80.0-100.0); Mean Platelet Volume 8.5; Monocytes # (A) 0.5 k/uL (0-1.0); Monocytes % (A) 6 %; Neutrophils # (A) 5.7 k/uL (1.3-7.7); Neutrophils % (A) 68 %; Platelet Count 230 k/uL (150-450); RBC 3.31 m/uL (3.80-5.40); RDW 13.6 % (11.5-15.5); WBC 8.3 k/uL (3.8-10.6)
[2024-09-20 11:25] LABS: African American GFR (CKD) 50 (>60 ml/min/1.73 sqM); Anion Gap 7 mmol/L; Blood Urea Nitrogen 39 mg/dL (7-17); Calcium 9.4 mg/dL (8.4-10.2); Carbon Dioxide 20 mmol/L (22-30); Chloride 115 mmol/L (98-107); Glucose 105 mg/dL (74-99); Non-African American GFR(CKD) 43 (>60 ml/min/1.73 sqM); Potassium 5.4 mmol/L (3.5-5.1); Sodium 142 mmol/L (137-145)
[2024-09-20] MEDS: EMPTY BAG 1 BAG with SODIUM CHLORIDE 0.9% 1,000 ML IV SCH (12:29)
[2024-09-20] MEDS: MIDAZOLAM 2 MG/2 ML VIAL IVP ONE ×3 (12:40→14:36)
[2024-09-20] MEDS: LIDOCAINE 1% INJ 10MG/ML (20 ML MDV) SQ ONE (12:44)
[2024-09-20] MEDS: HEPARIN SODIUM,PORCINE 10,000 UNIT in SODIUM CHLORIDE 0.9% 1,000 ML IRRIGATION PRN (12:49)
[2024-09-20] MEDS: fentaNYL (PF) 50 MCG/ML 2 ML AMP IVP ONE ×2 (12:49→14:36)
[2024-09-20] MEDS: HEPARIN SODIUM,PORCINE (1 ML) 2,500 UNIT in SODIUM CHLORIDE 0.9% 250 ML IRRIGATION PRN (12:50)
[2024-09-20] MEDS: HEPARIN SODIUM 1,000 UN/ML (10ML VL) IV ONE (13:03)
[2024-09-20] MEDS: IOPAMIDOL-370 100ML BTL INJ ONE ×2 (14:51→14:52)
[2024-09-20] MEDS ORDERED: NALOXONE 0.4 MG/ML 1 ML VIAL IVP PRN (14:57)
[2024-09-20] MEDS ORDERED: FUROSEMIDE 40 MG TAB PO PRN (15:01)
[2024-09-20] MEDS ORDERED: IPRATROPIUM-ALBUTEROL 3 ML NEB INHALATION PRN (15:01)
--- NOTE | 2024-09-20 15:57 | IR ---
EXAMINATION TYPE: IR stent intravas non coronary DATE OF EXAM: 09/20/2024 3:35 PM COMPARISON: Pre Operative Images if available both CT/MRI or plain film CLINICAL INDICATION: Female, 69 years old with history of right renal stenosis, 58.4min fluoro, 233Gy cm2; TECHNIQUE: IR stent intravas non coronary, multiple fluoroscopic images provided for procedure. Total fluoroscopy time: 58.4 seconds Total submitted images to PACS: [id number] DAP: 233 mGym2 Gycm2 uGym2 cGycm2 or equivalent. FINDINGS: IMPRESSION: 1. Report was generated for administrative purposes only. 2. Please see the operative/procedural note for further details. [facility], , 09/20/2024 3:55 PM
[2024-09-20] MEDS: HYDROmorphone 1 MG/ML 1 ML SYRINGE IVP PRN (16:18)
[2024-09-20] MEDS: hydrALAZINE HCL 50 MG TAB PO SCH (16:19)
[2024-09-20] MEDS: SPIRONOLACTONE 25 MG TAB PO SCH (20:20)
[2024-09-20] MEDS: ACETAMINOPHEN TAB 325 MG TAB PO SCH (20:21)
[2024-09-20] MEDS: lisinopriL 20 MG TAB PO SCH (20:21)
[2024-09-20] MEDS: amLODIPine 10 MG TAB PO SCH (20:21)
[2024-09-20] MEDS: cloNIDine HCL 0.2 MG TAB PO SCH (20:21)
[2024-09-20] MEDS: QUEtiapine 25 MG TAB PO SCH (20:21)
[2024-09-20] MEDS: METOPROLOL SUCCINATE (ER) 50 MG TAB.ER.24H PO SCH (20:21)
[2024-09-20 20:38] VITALS: RESP 17
--- NOTE | 2024-09-20 21:05 | P.PCN ---
Date of Procedure: 09/20/24 Operative Findings: Percutaneous peripheral arterial intervention Performing physician Ahmet Bruno MD Procedure performed 1. Successful stenting of the right renal artery using 5.0 x 20 mm Formula balloon expandable stent with reduction of stenosis from 90% to 0% 2. Selective right renal artery angiogram 3. An abdominal aortogram 4.Ultrasound-guided access of the left common femoral artery and left common femoral artery angiogram Indication Refractory hypertension in this 69-year-old female patient was receiving 5 blood pressure medications including diuretics and she continues to have systolic blood pressure exceeding 140 mmHg as sometimes consistent with hypertension crisis in spite of being compliant with her medication as well as deterioration in the renal function. Approach Left common femoral artery Complication None Level of sedation Moderate with sedation length of 120 minutes with a very complex and long procedure Procedure description After obtaining an informed consent the patient was brought to the cardiac [facility]. Initially attempting accessing the right common femoral artery was unsuccessful because of the artery was extremely deep and difficult to palpate and difficult to be seen as well under ultrasound guidance but I was able to visualize the left common femoral artery in a better way and for that reason I chose to access the left common femoral artery using micropuncture technique under ultrasound guidance and the micropuncture wire passed easily. Initially I placed a 5 [place] 11 cm sheath at the left common femoral artery and subsequently the sheath was flushed and then it was secured. At that point we did an aortogram using 5 Emir[place] pigtail catheter which was placed above the takeoff of the right and left renal arteries using power injection under digital subtraction. After that we decided to intervene on the right renal artery giving the critical disease at the ostium. At that point I did upgrade my 5 [place] 11 cm sheath into a 6 [place] 11 cm sheath using a 3 5 stiff Glidewire which was initially used to do the aortogram. After that anticoagulation was initiated using heparin with continuous ACT throughout the procedure and additional heparin given depends on the ACT number. I did engage the right renal artery using renal double curve guiding catheter but unfortunately the guiding catheter was not coaxial to the right renal artery. I attempting wiring of the right renal artery using the renal double curve catheter but unfor tunately the wire keep going to the aorta and I could not wire the right renal artery itself. And at that point I decided to change my guiding catheter from renal double curve catheter into an IM catheter which was a 6 Emir[place] IM catheter. The IM catheter was sitting better at the right renal artery. And I was able to engage the right renal artery better in a coaxial way. After that attempting wiring the right renal artery using Jasper [address] 014 wire was unsuccessful but was successful using a whisper 014 wire. The wire was advanced to the right renal artery. To anchor the guiding catheter better I wired the right renal artery with a tammy wire and that was the Jasper ST wire. Subsequently I was able to do balloon angioplasty of the right renal artery but attempting advancing the balloon expandable stent over the 014 wire was extremely challenging because of the calcified/critical lesion at the takeoff of the right renal artery. At that point I decided to upgrade my wire from 014 wir e into 018 wire to give me a better support. In spite of that I was unable to advance the stent from the guide to the renal artery. At that moment I did balloon angioplasty again of the right renal artery. Attempting advancing the stent was also unsuccessful. I had difficulties advancing the guiding catheter to cross the ostial of the right renal artery in spite of multiple balloon angioplasty. At that point I decided to use an 035 wire and exchanged my 018 wire in 2034 wire using CXI catheter. I did that over the CXI catheter exchanged the 018 wire into a stiff glide 035 wire but again attempting advancing the guide to engage the ostium of the right renal artery was again unsuccessful. At that point and after multiple attempts I decided to go ahead and exchange my guiding catheter which was the IM catheter to use and a 60 Emir[place] sheath. I left a the 035 wire in the right renal artery after I exchanged it to super core wire from 035 stiff Glidewire and then I pulled the CXI catheter/quick cross catheter then I pulled the guiding catheter which was the IM catheter and then I did exchange my 11 cm 6 [place] sheath into the 45 cm sheath using the super core catheter which was left in the right renal artery. With that I was able to get better engagement of the right renal artery. At that point I did exchange my 035 wire super core to 018 wire and subsequently I was able to advance the stent to the right renal artery where the stent was positioned under fluoroscopy guidance and deployed under fluoroscopy guidance in the ostial of the right renal artery was flared using the stent balloon with final angiogram showing excellent angiographic results and the procedure was completed with no complication. Subsequently I did pull the wire and the sheath from the right renal artery and then I did exchange my long sheath into a 23 cm sheath before I did selective left renal artery angiogram and the procedure was completed with no complication Postprocedure management Dual antiplatelet therapy Aggressive cholesterol control Monitor the kidney function and electrolytes Follow-up with the patient
[2024-09-21 05:30] LABS: Anion Gap 4 mmol/L; Basophils % (A) 0 %; Blood Urea Nitrogen 30 mg/dL (7-17); Carbon Dioxide 19 mmol/L (22-30); Chloride 116 mmol/L (98-107); Eosinophils # (A) 0.1 k/uL (0-0.7); Eosinophils % (A) 1 %; Glucose 123 mg/dL (74-99); HCT 30.7 % (34.0-46.0); HGB 9.5 gm/dL (11.4-16.0); Hypochromasia Moderate; Lymphocytes # (A) 1.3 k/uL (1.0-4.8); Lymphocytes % (A) 14 %; MCH 30.1 pg (25.0-35.0); MCHC 30.9 g/dL (31.0-37.0); MCV 97.3 fL (80.0-100.0); Mean Platelet Volume 9.4; Monocytes # (A) 0.7 k/uL (0-1.0); Monocytes % (A) 7 %; Neutrophils # (A) 7.4 k/uL (1.3-7.7); Neutrophils % (A) 76 %; Platelet Count 233 k/uL (150-450); Potassium 5.9 mmol/L (3.5-5.1); RBC 3.15 m/uL (3.80-5.40); RDW 13.6 % (11.5-15.5); Sodium 139 mmol/L (137-145); WBC 9.7 k/uL (3.8-10.6)
[2024-09-21 05:31] LABS: African American GFR (CKD) 70 (>60 ml/min/1.73 sqM); Calcium 9.6 mg/dL (8.4-10.2); Non-African American GFR(CKD) 61 (>60 ml/min/1.73 sqM)
[2024-09-21 07:21] VITALS: BP 181/73; PULSE 70; TEMP 98.4
[2024-09-21 07:50] LABS: Glucose,Whole Blood 102 mg/dL (70-110)
[2024-09-21] MEDS: ASPIRIN 81 MG PO SCH (08:17)
[2024-09-21] MEDS: CLOPIDOGREL 75 MG TAB PO SCH (08:17)
[2024-09-21] MEDS: CHOLECALCIFEROL 125 MCG (5000 IU) TABLET PO SCH (08:17)
[2024-09-21] MEDS: ATORVASTATIN 40 MG TAB PO SCH (08:17)
[2024-09-21] MEDS: ISOSORBIDE MONONITRATE ER 30 MG TAB.ER.24H PO SCH (08:19)
[2024-09-21] MEDS: BETAMETHASONE DIPROPIONATE 0.05% CREAM 15 GM TUBE TOPICAL SCH (08:19)
[2024-09-21] MEDS: ONDANSETRON 4 MG/2 ML VIAL IVP PRN (08:19)
--- NOTE | 2024-09-21 08:38 | P.DS ---
Providers Attending physician: Ahmet Bruno Primary care physician: [facility] Course: The patient is a pleasant 69-year-old female patient with extensive cardiovascular history consistent of CAD and PAD as well as diabetes and hypertension and dyslipidemia and morbid obesity who continues to have refractory hypertension where she was on 5 blood pressure medications including diuretics and continues to have blood pressure consistent with hypertension crisis and stage II hypertension. In the light of that secondary hypertension was suspected and the patient underwent yesterday an aortogram and bilateral renal artery angiogram and that revealed critical disease involving the right renal artery and she underwent successful stenting of the right renal artery. Also please note that her kidney function has been deteriorating. She was seen and evaluated today on September 21, 2024. She is asymptomatic from a cardiovascular standpoint of view but she has been experiencing right hip discomfort which is chronic and she underwent surgery on the hip before. Otherwise she reports no pain in the chest and no shortness of breath. She is hemodynamically stable beside the pressure is consistent with stage II hypertension. The left groin which is access site is soft and nontender with no bruises. Her blood work was reviewed and showed elevated potassium and she is on spironolactone which I am going to stop and repeat the potassium to rule out an error. Otherwise the patient will be discharged on dual antiplatelet therapy including aspirin and Plavix along with a statin and stopping spironolactone and repeat the potassium and the patient will be seen in the office as an outpatient. The importance of compliant with low-sodium diet as well as weight loss has been discussed with her multiple times including today. Plan - Discharge Summary Discharge Rx Participant: No New Discharge Prescriptions: Continue Aspirin 81 mg PO HS Metoprolol Succinate (ER) [Toprol XL] 50 mg PO BID Acetaminophen [Tylenol 8 Hour] 650 mg PO BID Spironolactone 50 mg PO BID Isosorbide Mononitrate ER [Imdur] 30 mg PO QAM Albuterol Inhaler [Ventolin Hfa Inhaler] 1 - 2 puff INHALATION Q6H PRN PRN Reason: Shortness Of Breath Rosuvastatin [Crestor] 20 mg PO DAILY Fluocinonide [Fluocinonide 0.1%] 1 applic TOPICAL DAILY hydrALAZINE HCL [Apresoline] 100 mg PO TID Cholecalciferol (Vitamin D3) [Vitamin D3 (125 MCG = 5,000 IU)] 125 mcg PO DAILY Garlic 1,000 mg PO DAILY Furosemide [Lasix] 40 mg PO DAILY PRN PRN Reason: Edema Enalapril Maleate 20 mg PO BID Clopidogrel [Plavix] 75 mg PO QAM amLODIPine 10 mg PO HS Vitamin C/Biotin [Hair, Skin and Nails Chew] 1 tab PO DAILY Gentamicin 0.1% Cream 1 applic TOPICAL DAILY cloNIDine HCL [Catapres] 0.2 mg PO BID Ipratropium-Albuterol Nebulize [Duoneb 0.5 mg-3 mg/3 ml Soln] 3 ml INHALATION Q4-6H PRN PRN Reason: Shortness Of Breath Discontinued QUEtiapine [SEROquel] 25 mg PO HS Discharge Medication List Aspirin 81 mg PO HS 04/23/21 [History] hydrALAZINE HCL [Apresoline] 100 mg PO TID 04/23/21 [History] Acetaminophen [Tylenol 8 Hour] 650 mg PO BID 01/21/22 [History] Cholecalciferol (Vitamin D3) [Vitamin D3 (125 MCG = 5,000 IU)] 125 mcg PO DAILY 01/21/22 [History] Garlic 1,000 mg PO DAILY 01/21/22 [History] Metoprolol Succinate (ER) [Toprol XL] 50 mg PO BID 01/21/22 [History] Spironolactone 50 mg PO BID 01/21/22 [History] Isosorbide Mononitrate ER [Imdur] 30 mg PO QAM 05/08/22 [History] Clopidogrel [Plavix] 75 mg PO QAM 02/18/24 [History] Enalapril Maleate 20 mg PO BID 02/18/24 [History] Furosemide [Lasix] 40 mg PO DAILY PRN 02/18/24 [History] Vitamin C/Biotin [Hair, Skin and Nails Chew] 1 tab PO DAILY 03/14/24 [History] amLODIPine 10 mg PO HS 03/14/24 [History] Albuterol Inhaler [Ventolin Hfa Inhaler] 1 - 2 puff INHALATION Q6H PRN 09/19/24 [History] Fluocinonide [Fluocinonide 0.1%] 1 applic TOPICAL DAILY 09/19/24 [History] Gentamicin 0.1% Cream 1 applic TOPICAL DAILY 09/19/24 [History] Ipratropium-Albuterol Nebulize [Duoneb 0.5 mg-3 mg/3 ml Soln] 3 ml INHALATION Q4-6H PRN 09/19/24 [History] Rosuvastatin [Crestor] 20 mg PO DAILY 09/19/24 [History] cloNIDine HCL [Catapres] 0.2 mg PO BID 09/19/24 [History] Follow up Appointment(s)/Referral(s): Ahmet Bruno MD [STAFF PHYSICIAN] - 1 Week (Offic will call with appointment date and time) Patient Instructions/Handouts: Moderate Sedation (DC), Angiogram (DC) Activity/Diet/Wound Care/Special Instructions: *NO LIFTING, PUSHING, OR PULLING ANYTHING OVER 5 POUNDS FOR 5 DAYS *NO DRIVING FOR 3 DAYS *YOU CAN SHOWER TOMORROW BUT DO NOT SUBMERSE YOUR PUNCTURE SITE IN WATER FOR A FEW DAYS TO PREVENT INFECTION - SO NO TUB BATHS, POOLS, HOT TUBS, DISHES....ETC *ANY SIGNS OF BLEEDING (HARDNESS, SWELLING OR EXCESSIVE BRUISING) HOLD DIRECT PRESSURE ON YOUR PUNCTURE SITE AND COME TO THE NEAREST EMERGENCY ROOM TO GET YOUR PUNCTURE SITE LOOKED AT - DO NOT DRIVE YOURSELF! EITHER CALL EMS OR HAVE SOMEONE DRIVE YOU!
[2024-09-21] MEDS ORDERED: NON FORMULARY DRUG (Garlic [Garlic] 1,000 MG Capsule) PO SCH (09:00)
[2024-09-21] MEDS ORDERED: NON FORMULARY DRUG (Vitamin C/Biotin [Hair, Skin And Nails Chew] 1 EACH Tab.Chew) PO SCH (09:00)
== END 2024-09-21 12:33 | disposition home or self-care (01) ==
LOC: CATHCVL 10:22 → 6NMEDSUR 14:50 → CATHCVL 09-21 12:33
PROVIDERS: ATTEND Internal Medicine Interventional Cardiology
DX: I70.1 Atherosclerosis of renal artery (principal); I25.10 Atherosclerotic heart disease of native coronary artery without angina pectoris; E11.9 Type 2 diabetes mellitus without complications; E66.01 Morbid (severe) obesity due to excess calories; E78.5 Hyperlipidemia, unspecified; I73.9 Peripheral vascular disease, unspecified; I65.23 Occlusion and stenosis of bilateral carotid arteries; I10 Essential (primary) hypertension; Z79.02 Long term (current) use of antithrombotics/antiplatelets; Z79.82 Long term (current) use of aspirin; Z88.2 Allergy status to sulfonamides; Z88.0 Allergy status to penicillin; Z88.5 Allergy status to narcotic agent; Z88.6 Allergy status to analgesic agent; Z88.8 Allergy status to other drugs, medicaments and biological substances; Z91.048 Other nonmedicinal substance allergy status; Z88.1 Allergy status to other antibiotic agents; Z79.899 Other long term (current) drug therapy; Z68.43 Body mass index [BMI] 50.0-59.9, adult
CPT/HCPCS: 99152; 99153; 75625; 37236; 80048 ×2; 84132; 85025 ×2; C1887 ×2; C1769 ×6; C1894 ×4; C1725 ×4; C1876; J2250; J1644 ×3; J2405; J2003; J3010; J1171; Q9967